=== PATIENT | female | born 1950 | race Caucasian/White ===

== ENCOUNTER 2020-09-04 09:21 | Inpatient (IN) | payer MEDICARE, MEDICAID, SELFPAY ==
[2020-09-04] VITALS (10 sets, daily range): BP systolic 133–151; BP diastolic 48–114; PULSE 50–61; RESP 12–17; O2SAT 95–100
--- NOTE | 2020-09-04 09:28 | ECG_ITS ---
Measurements Intervals Braman Rate: 57 P: 4 MD: 155 QRS: 19 QRSD: 93 T: 80 QT: 396 QTc: 388 Interpretive Statements SINUS BRADYCARDIA VOLTAGE CRITERIA FOR LVH INFERIOR ST ELEVATION MYOCARDIAL INFARCT- ACUTE BASELINE ARTIFACT- I, II, AVR, AVL, AVF, V2, V5-V6 ABNORMAL ECG Electronically Signed On 09-04-2020 12:22:20 CDT by Isaias Mercer D.O.
--- NOTE | 2020-09-04 09:28 | PC.NURSE ---
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
--- NOTE | 2020-09-04 09:32 | ED.CHESTPAIN ---
HPI - Chest Pain General Chief Complaint: Chest Pain Stated Complaint: STEMI Time Seen by Provider: 09/04/20 09:32 History of Present Illness HPI narrative: Stabbing left sided chest pain radiating to the left arm since last night. Much worse this morning. No associated symptoms. Inferior STEMI called in the field. Given 324 mg Aspirin, 4 mg morphine. Pain is now moderate. No h/o CAD. Related Data Home Medications Medication Instructions Recorded Confirmed Myrbetriq 50 mg PO DAILY 03/06/19 03/06/19 esomeprazole magnesium 40 mg PO BID 03/06/19 03/06/19 gabapentin 300 mg PO TID 03/06/19 03/06/19 glimepiride 2 mg PO BID 03/06/19 03/06/19 losartan 25 mg PO DAILY 03/06/19 03/06/19 memantine [Namenda] 10 mg PO BID 03/06/19 03/06/19 venlafaxine 150 mg PO DAILY 03/06/19 03/06/19 Allergies Allergy/AdvReac Type Severity Reaction Status Date / Time Penicillins Allergy Unknown Hives Verified 03/06/19 09:05 Contrast Media Allergy Unknown Dyspnea / Uncoded 03/06/19 09:05 SOB Review of Systems Review of Systems: All systems reviewed & are unremarkable except as noted in HPI and below Constitutional: Constitutional: Reports no additional constitutional complaints Cardiovascular: Cardiovascular: Reports as per HPI Respiratory: Respiratory: Denies dyspnea Gastrointestinal: Gastrointestinal: Denies abdominal pain and Denies nausea Musculoskeletal: Musculoskeletal: Reports no additional musculoskeletal complaints Neurologic: Denies weakness [facility] Past Medical History Medical History Ankle fracture, right 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 of bilateral first ribs Blind left eye Diabetes Glaucoma both eyes HTN (hypertension) Hx of radiation therapy Hx of tongue cancer Hyperlipidemia Type 2 diabetes mellitus with diabetic polyneuropathy, without long-term current use of insulin Surgical History Surgical History History of ankle surgery repair of rt ankle fracture History of orthopedic surgery bilateral removal of 1st rib Hx of oral surgery partial removal of tongue Status post glaucoma surgery both eyes Family History Family History Father , due to [place] at 65 Diabetes mellitus Family history of cardiovascular disease Family history of congestive heart failure Grandparent Diabetes mellitus Family history of glaucoma Sibling Diabetes mellitus Family history of cardiovascular disease Family history of congestive heart failure Daughter Family history of lung disease Daughter , at 46 due to metastatic breast cancer Breast cancer Mother , at 79 due to COPD Family history of chronic obstructive pulmonary disease Other Asthma Depression Family history of mental disorder Hypertension Social History Social History Smoking packs per day: 2 Smoking cigarettes per day: 40.0 Years smoked: 10 Smoking pack-years: 20.00 Smoking status: Former smoker Tobacco type: cigarettes Alcohol intake: never Substance use: never Substance use type: does not use Gender identity (if verbalized by the patient): Female Spiritual care concerns: No Agree to blood products: Yes Exam Const: General: no acute distress, alert and uncomfortable Nutritional Appearance: well nourished Orientation/consciousness: patient oriented x3 HENMT: Head: normal to inspection Neck: Neck: normal visual inspection Chest: Chest palpation & inspection: no tenderness Resp: Effort & Inspection: normal respiratory effort Auscultation: clear to auscultation bilaterally, no rales, no rhonchi and no wheezes Cardio: Jugular venous distension: no JVD Rate: regular rate Rhythm: regular rhythm GI:
[2020-09-04 09:41] LABS: Basophils Percent Auto 0.7 % (0.2-1.2); Eosinophils Absolute Auto 0.2 K/mm3 (0-0.3); Eosinophils Percent Auto 4.2 % (0-4.4); Hemoglobin 14.4 g/dL (12.0-15.0); Immature Granulocyte Absolute 0.02 K/mm3 (0.00-0.031); Immature Granulocyte Percent A 0.4 % (0-0.5); Lymphocytes Absolute Auto 0.77 K/mm3 (0.9-3.2); Lymphocytes Percent Auto 13.5 % (18.3-44.2); Mean Corpuscular HGB Conc 32.7 g/dl (32-36); Mean Corpuscular Hemoglobin 28.9 pg (26-34); Mean Corpuscular Volume 88.4 fl (80-100); Mean Platelet Volume 10.7 fl (7.4-10.4); Monocytes Absolute Auto 0.4 K/mm3 (0.1-0.6); Monocytes Percent Auto 7.6 % (2.6-8.5); Neutrophils Absolute Auto 4.2 K/mm3 (1.3-6.7); Neutrophils Percent Auto 73.6 % (45.5-73.1); Platelet Count Result 162 k/mm3 (150-375); Red Blood Count 4.98 M/mm3 (4.2-5.4); Red Cell Distribution Width 12.5 % (11.5-14.5); White Blood Count 5.7 K/mm3 (4.5-10.0)
[2020-09-04 09:51] LABS: INR 0.9; Prothrombin Time 12.3 Seconds (11.1-14.7)
[2020-09-04 09:52] LABS: Partial Thromboplastin Time 26.3 SECONDS (22.3-36.8)
[2020-09-04 09:53] LABS: Alanine Aminotransferase 15 U/L (4-35); Albumin Level 3.9 g/dL (3.5-5.1); Alkaline Phosphatase 98 U/L (38-126); Anion Gap 8 mmol/L (8-16); Aspartate Amino Transferase 25 U/L (14-36); Bilirubin,Total 0.9 mg/dL (0.2-1.3); Blood Urea Nitrogen 15 mg/dL (7-17); Calcium 9.1 mg/dL (8.4-10.2); Carbon Dioxide 29 mmol/L (22-30); Chloride 102 mmol/L (98-107); Cholesterol 134 mg/dL (0-200); Estimated CRCL calculation 48 ml/min; Estimated Glomerular Filt Rate > 60; Glucose 377 mg/dL (65-110); HDL Direct 36 mg/dL; Potassium 3.8 mmol/L (3.4-5.0); Sodium 139 mmol/L (137-145); Triglycerides 205 mg/dL (<150)
[2020-09-04 10:04] LABS: LDL Cholesterol Direct 66 mg/dL
[2020-09-04 10:16] LABS: Troponin I 0.232 ng/mL (0.000-0.034)
--- NOTE | 2020-09-04 10:26 | WPDCARDPROC ---
Cardiac Cath Procedure Note Date of procedure:: 09/04/20 Performing physician:: Omar Sanchez MD Indication:: emergency coronary angiography left ventriculography placement of intra-aortic balloon pump Brief clinical history:: this 69-year-old woman with diabetes but no previous history of overt heart disease. She started to experience retrosternal chest pain of a burning nature last evening. She resides in an assisted living facility. This morning the pain became more severe and abdomen is was call she was taken to the emergency room. ECG in the field and on route shows evidence of inferior wall myocardial infarction and emergency STEMI protocol / team was activated. The patient was treated with nitrates and aspirin and is currently not having chest pain as she is being prepared for emergency angiography. Procedure Procedure performed:: Coronary angiography left ventriculography placement of intra-aortic balloon pump Sedation/Medication given:: fentanyl 25 mg Versed 2 mg case start time 9:45 a.m. case end time 10:21 a.m. sedation provided by Kiara Lynne RN trained observer Access site:: right femoral artery Estimated blood loss:: 15-20 cc Procedure note:: patient was brought to the cardiac catheterization lab in the emergency setting described above. The right femoral triangle was prepared and draped in the usual fashion. Anesthesia was provided with 1% lidocaine infiltrated locally. Using the modified Seldinger technique the femoral artery was punctured and a 6 Guamanian vascular sheath was placed. Following this I used a 5 Guamanian FL4 catheter to engage and inject the left coronary artery in multiple projections. After this I used a 6 Guamanian JR4 guiding catheter to engage and inject the right coronary artery. Following this the cineangiograms were reviewed. A left ventriculogram was then performed using a 5 Guamanian angled pigtail catheter as well as measuring left-sided hemodynamics. Following this the catheters were removed and over the guidewire the sheath 6 Guamanian sheath was removed and replaced with the intra-aortic balloon pump sheath. Following that the patient received 7000 units of IV heparin bolus. The intra-aortic balloon catheter was then advanced under fluoroscopic visualization into the descending aorta and placed into standard position. The cine angiograms demonstrated excellent counter pulsation and hemodynamic benefit noted on the monitor. Findings:: Hemodynamics: Central aortic pressure is 124 over 56 left ventricle 124/0 end diastolic pressure 16. There is no systolic gradient on pullback across the aortic valve. Left ventricle: The LV is normal in size the posterior basal segment appears to be akinetic the remainder of the LV contracts very well the global ejection fraction I would visually estimated to be 65%. The left main coronary artery is medium in caliber and free of significant disease. The left anterior descending is a medium caliber artery extending down to and around the apex supplying a significant portion of the inferior wall as well. The LAD has diffuse disease in the proximal 1/2 with proximal 60-70% stenosis and in the midportion at the end of this area of disease there is a discrete 90% stenosis. Distal to this the LAD is free of significant lesions. The circumflex is a moderate caliber artery giving rise to 1 very large marginal branch. The circumflex in this marginal branch have mild diffuse luminal irregularities but no flow-limiting disease appears to be seen. The right coronary artery is small in caliber but is dominant to the posterior. It is diffusely diseased in its entirety. In the midportion of the right coronary there is diffuse 70% stenosis and 80-90% stenosis in the 3rd portion and then 99% stenosis distally at the bifurcation of the RPDA and RPL. There is angiographically good flow in the vessel however. Conclusion:: 1. Coronary artery d
--- NOTE | 2020-09-04 10:38 | PM.IMHP ---
H&P: HPI History of Present Illness Date/Time: 09/04/20 10:38 Chief Complaint: chest pain Narrative: this is a 69-year-old woman known to me prior to this encounter who comes to the emergency room with chest pain from the assisted living facility where she resides. Apparently she has a history of diabetes but no prior history of overt cardiac disease. She started to have symptoms of retrosternal burning like chest pain yesterday evening while she was visiting with other residents at the facility but this was apparently mild and did not obviously result in any significant concern. This morning the pain became significantly worse so she came to the emergency room by ambulance. In the field ECG is diagnostic of acute inferior wall infarction and is setting STEMI protocol /team has been activated. She is being seen in the emergency room and at the moment appears to be relatively comfortable she is reporting mild residual discomfort. Laboratory data has been drawn but has of course not yet available at the time of this dictation. Preparations are now being made for emergency angiography in the setting. 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 s/p 1971 removal of bilateral first ribs Blind left eye Diabetes Glaucoma both eyes HTN (hypertension) Hx of radiation therapy Hx of tongue cancer Hyperlipidemia Type 2 diabetes mellitus with diabetic polyneuropathy, without long-term current use of insulin Surgical History Surgical History History of ankle surgery repair of rt ankle fracture History of orthopedic surgery bilateral removal of 1st rib Hx of oral surgery partial removal of tongue Status post glaucoma surgery both eyes Family History Family History Father , due to [place] at 65 Diabetes mellitus Family history of cardiovascular disease Family history of congestive heart failure Grandparent Diabetes mellitus Family history of glaucoma Sibling Diabetes mellitus Family history of cardiovascular disease Family history of congestive heart failure Daughter Family history of lung disease Daughter , at 46 due to metastatic breast cancer Breast cancer Mother , at 79 due to COPD Family history of chronic obstructive pulmonary disease Other Asthma Depression Family history of mental disorder Hypertension Social History Social History Smoking packs per day: 2 Smoking cigarettes per day: 40.0 Years smoked: 10 Smoking pack-years: 20.00 Smoking status: Former smoker Tobacco type: cigarettes Alcohol intake: never Substance use: never Substance use type: does not use Gender identity (if verbalized by the patient): Female Spiritual care concerns: No Agree to blood products: Yes Meds Home Medications and Allergies Home Medications Medication Instructions Recorded Confirmed Type Myrbetriq 50 mg PO DAILY 03/06/19 03/06/19 History esomeprazole magnesium 40 mg PO BID 03/06/19 03/06/19 History gabapentin 300 mg PO TID 03/06/19 03/06/19 History glimepiride 2 mg PO BID 03/06/19 03/06/19 History losartan 25 mg PO DAILY 03/06/19 03/06/19 History memantine [Namenda] 10 mg PO BID 03/06/19 03/06/19 History venlafaxine 150 mg PO DAILY 03/06/19 03/06/19 History acetaminophen [Mapap 650 mg PO Q4H PRN #60 tablet 03/07/19 Rx (acetaminophen)] aspirin 81 mg PO DAILY #30 tablet 03/07/19 Rx atorvastatin 40 mg PO DAILY #30 tablet 03/07/19 Rx levothyroxine 75 mcg capsule 75 mcg PO DAILY #30 cap 04/30/19 Rx Allergies Allergy/AdvReac Type Sever
--- NOTE | 2020-09-04 11:10 | SUR.PHASEI ---
patient into the [facility] room 3 post left jeart cath with balloon pump intact. Currently the IABP is in a 1:1 with ECG trigger Unassisted pressure is 157/69, assisted 125/57. Patient is resing comfortably with no complaints of pain. Right groin sheath intact without swelling or signs of bleeding.
[2020-09-04 11:26] LABS: Glucose Point of Care 267 mg/dl (65-105)
[2020-09-04] MEDS: SODIUM CHLORIDE 0.9% IV 1,000 ML 125 ML IV CONT (11:35)
[2020-09-04] MEDS: HEPARIN SOD/D5W 100 UNITS/ML 25,000 UNITS/250 ML BAG 9 UNITS (11:36)
[2020-09-04 12:56] LABS: Troponin I 0.788 ng/mL (0.000-0.034)
[2020-09-04] MEDS: INSULIN ASPART (*BKC) 100 UNITS/ML SUB-Q (13:00)
--- NOTE | 2020-09-04 13:42 | SUR.PHASEI ---
1145 [facility] called with bed assignment, pt to be transfered to ICU 25 Second floor at [facility]. Talked with daughter about mothers condition and the pending transfer. Patient resting comfortably in bed, offers no complaints at this time. Right groin site intact, no signs of bleeding. IV fluids of NS infusing without difficulty at 125ml/hr and Heparin gtt infusing at 9ml/hr or 900 units. Peripheral pulses are 1+ to the right dorsal pedal, right foot appears warm and dry, pink in color. Monitor Sinus Tomás, no ectopics. bilateral IV sites to the right and left AC without redness or swelling. IABP continues to operate without difficulty at 1:1, augmentation is 163. 1205 Report called to Coreen at [facility] 2nd floor ICU, verified that patient will be going to [facility]. 1210 [facility] called and informed of transfer need. They state that an ambulance should be here in 25 min. 1300 [facility] here to transfer patient. Patient loaded onto stretcher without difficult. Subq 5 units regular insulin given as ordered for elevated glucose level. Balloon pump intact, IV pumps infusing without difficulty. 1305 Sarah, daughter of the patient, informed of transfer to [facility].
--- NOTE | 2020-10-13 17:41 | P.TS_ITS ---
Transfer Discharge Sum: Prov Provider Date of admission: 09/04/20 09:32 Primary care physician: Iqra Irizarry, Admitting clinician: Omar Sanchez MD DS: Admitting Diagnosis Admitting Diagnosis ST-elevation MN DS: Discharge Diagnosis Discharge Diagnosis (1) Acute ST elevation myocardial infarction (STEMI) of inferior wall: Code(s): I21.19 - ST elevation (STEMI) myocardial infarction involving other coronary artery of inferior wall Status: Acute Transfer Discharge Sum: Med Medications Active and Home Medications: Home Medications Myrbetriq 50 mg PO DAILY 03/06/19 [History Confirmed 03/06/19] esomeprazole magnesium 40 mg PO BID 03/06/19 [History Confirmed 03/06/19] gabapentin 300 mg PO TID 03/06/19 [History Confirmed 03/06/19] glimepiride 2 mg PO BID 03/06/19 [History Confirmed 03/06/19] losartan 25 mg PO DAILY 03/06/19 [History Confirmed 03/06/19] memantine [Namenda] 10 mg PO BID 03/06/19 [History Confirmed 03/06/19] venlafaxine 150 mg PO DAILY 03/06/19 [History Confirmed 03/06/19] acetaminophen [Mapap (acetaminophen)] 650 mg PO Q4H PRN #60 tablet 03/07/19 [Rx] aspirin 81 mg PO DAILY #30 tablet 03/07/19 [Rx] atorvastatin 40 mg PO DAILY #30 tablet 03/07/19 [Rx] levothyroxine 75 mcg capsule 75 mcg PO DAILY #30 cap 04/30/19 [Rx] Transfer Discharge Sum: Hosp Hospital Course Hospital course: Shoshana Mon is a 69 year old female without previous history of heart disease who was admitted to the hospital emergency room with intermittent chest pain that had been going on for a couple of days. Upon arrival she had inferior ST elevation STEMI protocol was activated. Upon arrival in the cardiac catheterization lab she was no longer having any chest pain. Angiographically she was found to have severe diffuse disease in both the right coronary artery as well as the proximal half of the LAD. She had high- grade lesions in the proximal right coronary, midportion as well as in the distal involving the RPDA RPL bifurcation. Since she had patent, AD 3 flow in these vessels emergency PCI was not performed I thought she was a better candidate for surgical revascularization. For that reason intra-aortic balloon pump was placed and she was transferred for surgical revascularization to [facility]. Time Spent with Patient Time attestation: Total time spent providing and/or coordinating transfer services: Exam Const: General: comfortable and no acute distress HENMT: Mouth: Yes moist mucous membranes Eyes: Sclera: sclerae normal Pupils: Equal, round and reactive pupils present Neck: Neck: supple Other: No carotid bruits normal carotid upstrokes Resp: Effort & Inspection: normal respiratory effort Auscultation: clear to auscultation bilaterally Cardio: Rate: regular rate Rhythm: regular rhythm Other: S4 is noted no murmur GI: GI Palp: Yes Soft to palpation Auscultation: normal bowel sounds Skin: General skin exam: normal color Neuro: Cognition (Neuro): normal cognition Extrem: General: normal to inspection
== END 2020-09-04 13:00 | disposition short-term general hospital (02) | DRG 272 ==
LOC: ANHED 09:34 → ANHICU 09:36
PROVIDERS: Admitting Provider Specialist; Emergency Provider Emergency Medicine; PCP Family Medicine; Visit Provider Specialist
PROC: 4A023N7 Measurement of Cardiac Sampling and Pressure, Left Heart, Percutaneous Approach (ICD-10-PCS; CPT 93452; principal; 2020-09-04 09:40)
PROC: 5A02210 Assistance with Cardiac Output using Balloon Pump, Continuous (ICD-10-PCS; 2020-09-04 09:40)
DX: I21.19 ST elevation (STEMI) myocardial infarction involving other coronary artery of inferior wall (principal); E11.42 Type 2 diabetes mellitus with diabetic polyneuropathy; I25.10 Atherosclerotic heart disease of native coronary artery without angina pectoris; I10 Essential (primary) hypertension; E78.5 Hyperlipidemia, unspecified; H40.9 Unspecified glaucoma; Z87.891 Personal history of nicotine dependence; Z79.899 Other long term (current) drug therapy; Z88.0 Allergy status to penicillin; Z91.041 Radiographic dye allergy status; Z85.810 Personal history of malignant neoplasm of tongue; Z92.3 Personal history of irradiation
CPT/HCPCS: 33967; 36415; 80053; 80061; 82948; 84484; 85025; 85610; 85730; 86850; 86900; 86901; 93005; 93458; 99285; C1887; C1894; J1644; J1815; J2250; J3010; J7030; J7040

== ENCOUNTER 2021-01-14 11:13 | Outpatient (CLI) | payer BC, SELFPAY ==
--- NOTE | ~2021-01-14 | XR_ITS ---
EXAMINATION: XR ankle LT min 3V, XR foot LT min 3V DATE: 01/14/2021 11:47 INDICATION: Lateral left foot and ankle pain post fall TECHNIQUE: 1. Anteroposterior, mortise, additional oblique and lateral view of the left ankle were obtained. 2. Dorsoplantar, two oblique and lateral views of the left foot were obtained. COMPARISON: None. FINDINGS: Hallux valgus with bunion with mild hypertrophic change at the medial head of the first metatarsal. A lignment of the left foot and ankle is otherwise normal. Lateral plate and screw fixation along the d istal left fibula presumably an old healed fracture with no residual deformity. No instrumentation fa ilure or surrounding lucency to suggest loosening or infection. No acute fractures identified. No fra cture or osteochondral lesion. Mild osteoarthritis of the first metatarsophalangeal and a few tarsome tatarsal and interphalangeal joints. No ankle joint effusion. The soft tissues are unremarkable. IMPRESSION: 1. No acute osseous abnormality. The left foot or ankle. 2. Hallux valgus with bunion. 3. Mild polyarticular osteoarthritis in the left mid and forefoot. Reviewed, dictated and finalized at location A. ICATION SUPPORT ANALYST IMPRESSION: 1. No acute osseous abnormality. The left foot or ankle. 2. Hallux valgus with bunion. 3. Mild polyarticular osteoarthritis in the left mid and forefoot.
== END 2021-01-14 11:14 | disposition home or self-care (01) ==
LOC: ANHIMG 11:25
PROVIDERS: PCP Family Medicine; Visit Provider Nurse Practitioner Family
DX: M19.072 Primary osteoarthritis, left ankle and foot (principal); M20.12 Hallux valgus (acquired), left foot
CPT/HCPCS: 73610; 73630

== ENCOUNTER 2021-02-09 13:05 | Outpatient (CLI) | payer BC, SELFPAY ==
--- NOTE | ~2021-02-09 | US_ITS ---
EXAMINATION: US venous doppler [facility] EXAM DATE: 02/09/2021 14:04 INDICATION: Left foot edema. TECHNIQUE: Multiple grayscale, color flow and Doppler images of the left lower extremity deep venous system were obtained and reviewed. There is no prior study for comparison. FINDINGS: The left common femoral, femoral and profunda veins demonstrate normal color flow, respirat ory variation, augmentation and compressibility. Compressibility, color flow confirmed within the le ft popliteal, posterior tibial, peroneal, and greater saphenous veins. IMPRESSION: 1. No left lower extremity deep venous thrombosis. Reviewed, dictated and finalized at location A. TRIMMER
--- NOTE | ~2021-02-09 | US_ITS ---
EXAMINATION: US art doppler w missy [facility] EXAM DATE: 02/09/2021 14:04 INDICATION: Left foot edema. TECHNIQUE: Segmental pressures and plethysmographic and Doppler waveforms of the brachial and lower e xtremity arteries were obtained. There is no prior study for comparison. FINDINGS: Right and left brachial artery pressures of 100 mm Hg and 118 mm Hg, respectively, are concordant (no rmal difference <= 30 mmHg). The right and left thigh-brachial pressure indices are 1.08, 1.02, resp ectively (normal > 1.2). RIGHT LEG: The ankle-brachial index (ISAIAH) is 0.57 (normal >= 0.9-1). The great toe-brachial index (TBI) is 0.15 (normal >= 0.65). The lower extremity ratios, segmental pressure gradients as follows; Proximal superficial femoral artery:- 1.08 (127 mmHg). Distal superficial femoral artery: ----- 0.87 (103 mmHg). Popliteal: 0.63 (74 mmHg). Dorsalis pedis: 0.57 (67 mmHg). Posterior tibial: 0.50 (59 mmHg). (Normal gradients <= 20-30 mmHg between adjacent levels on the same leg or the same levels on the two legs). Arterial waveforms are monophasic. LEFT LEG: The ankle-brachial index (ISAIAH) is 0.53 (normal >= 0.9-1). The great toe-brachial index (TBI) is 0.25 (normal >= 0.65). The lower extremity ratios, segmental pressure gradients as follows; Proximal superficial femoral artery:- 1.02 (120 mmHg). Distal superficial femoral artery: ----- 1.08 (127 mmHg). Popliteal: 0.60 (71 mmHg). Dorsalis pedis: 0.53 (63 mmHg). Posterior tibial: 0.52 (61 mmHg). (Normal gradients <= 20-30 mmHg between adjacent levels on the same leg or the same levels on the two legs). Arterial waveforms are monophasic. IMPRESSION: 1. Right ankle-brachial index 0.57, moderately decreased. 2. Left ankle-brachial index 0.53, moderately decreased. 3. Monophasic waveforms. Segmental pressures as above. Reviewed, dictated and finalized at location A. CTOR OF STRATEGIC SOURCING
== END 2021-02-09 13:06 | disposition home or self-care (01) ==
LOC: ANHIMG 13:09
PROVIDERS: PCP Family Medicine; Visit Provider Nurse Practitioner Adult Health
DX: R60.0 Localized edema (principal); I73.9 Peripheral vascular disease, unspecified
CPT/HCPCS: 93923; 93971

== ENCOUNTER 2021-08-24 10:12 | Outpatient (CLI) | payer MEDICARE, MEDICAID, SELFPAY ==
--- NOTE | ~2021-08-24 | US_ITS ---
EXAMINATION: US carotid duplex BI DATE: 08/24/2021 11:21 INDICATION: Facial weakness. Vertigo. Atherosclerosis. TECHNIQUE: Grayscale, color Doppler, and pulsed Doppler images of the cervical carotid arteries were obtained. The degree of vessel stenosis is placed in one of the following categories: normal, <50%, 5 0-69%, >=70% but less than near-occlusion, near-occlusion, or total occlusion. Note that percent sten osis relative to normal distal artery lumen diameter is indirectly measured from velocity measurement s as described by Juanito, et al. Radiology 2003; [id number]. Notes: Normal: Peak systolic velocity <125 centimeters/sec and no plaque <50%. Peak systolic velocity <125 ( EDV <40; ICA/CCA PSV ratio <2.0; used these factors only a tandem lesions or low cardiac output or co ntralateral disease) 50-69 %: PSV 125-230 (EDV 40-100; ratio 2-4) >= 70% but less than near occlusion: PSV greater than 230 (EDV > 100; ratio> 4.0) Near Occlusion: PSV that is variable; markedly narrowed lumen Occlusion: Absent flow on color/spectral Doppler and no lumen on key scale. COMPARISON: Ultrasound dated 03/06/2019. FINDINGS: RIGHT: The right common carotid artery (CCA) peak systolic velocity (PSV) is 121 cm/s. The right internal ca rotid artery (ICA) PSV is 357 cm/s. The right ICA end-diastolic velocity (EDV) is 120 cm/s. The right ICA/CCA PSV ratio is 3.0. The external carotid artery (ECA) PSV is 192 cm/s. There is antegrade flow in the right vertebral artery. LEFT: The left CCA PSV is 124 cm/s. The left ICA PSV is 265 cm/s. The left ICA EDV is 58 cm/s. The left ICA /CCA PSV ratio is 2.1. The ECA PSV is 190 cm/s. There is antegrade flow in the left vertebral artery . IMPRESSION: 1. Greater than 70% stenosis in the right internal carotid artery by sonographic criteria. 2. Greater than 70% stenosis in the left internal carotid artery by sonographic criteria. Reviewed, dictated and finalized at location A. IMPRESSION: 1. Greater than 70% stenosis in the right internal carotid artery by sonographi c criteria. 2. Greater than 70% stenosis in the left internal carotid artery by sonographic criteria.
== END 2021-08-24 10:13 | disposition home or self-care (01) ==
PROVIDERS: PCP Family Medicine; Visit Provider Internal Medicine Cardiovascular Disease
DX: I65.23 Occlusion and stenosis of bilateral carotid arteries (principal)
CPT/HCPCS: 93880

== ENCOUNTER 2021-09-07 00:39 | Inpatient (IN) | payer MEDICARE, MEDICAID, SELFPAY ==
[2021-09-07] VITALS (10 sets, daily range): BP systolic 91–165; BP diastolic 45–98; PULSE 65–83; RESP 15–24; TEMP 36.4–36.9; O2SAT 88–100; BMI 26.3
--- NOTE | ~2021-09-07 | XR_ITS ---
EXAMINATION: XR lumbar spine 2-3V DATE: 09/07/2021 01:24 INDICATION: Low back pain post fall TECHNIQUE: Anteroposterior and lateral views of the lumbar spine, and cone-down lateral view of the l umbosacral junction were obtained. COMPARISON: None. FINDINGS: 1.5 cm anterolisthesis L5 on S1. 3 mm anterolisthesis L4 on L5. 3 mm retrolisthesis L1 on L2 and 5 mm retrolisthesis L2 on L3. Vertebral body heights are normal. Severe disc height loss at T12-L1 and L1 -L2. Mild disc height loss at L2-L3 and L5-S1. Multilevel severe mid to lower lumbar facet osteoarthr itis. Transcervical fracture of the proximal femur with significant proximal migration. Mild right an d mild to moderate left hip osteoarthritis. Mild bilateral sacroiliac osteoarthritis. Atherosclerotic calcific a abdominal aorta. IMPRESSION: 1. Severe thoracolumbar spondylosis with severe facet osteoarthritis in the mid to lower lumbar spine . 2. Mild spondylolisthesis at a few levels with more severe 1.5 cm anterolisthesis L5 on S1. 3. Displaced transcervical fracture of the proximal left femur. Reviewed, dictated and finalized at location A. IMPRESSION: 1. Severe thoracolumbar spondylosis with severe facet osteoarthritis in the mid to lower lumbar spine. 2. Mild spondylolisthesis at a few levels with more severe 1.5 cm anterolisthes is L5 on S1. 3. Displaced transcervical fracture of the proximal left femur.
--- NOTE | ~2021-09-07 | CT_ITS ---
EXAMINATION: CT LE LT wo con DATE: 09/10/2021 20:48 INDICATION: Recent hip arthroplasty. Low hemoglobin. Evaluate for hemorrhage. TECHNIQUE: Computed tomography (CT) of the left femur was performed without intravenous contrast. The dose-length product was 1051.79 mGy-cm. COMPARISON: CT dated 09/10/2021 FINDINGS: There is a left femoral bipolar hemiarthroplasty which appears to be well seated. There is mild subcutaneous edema as well as soft tissue gas and fluid adjacent to the hip arthroplasty, consis tent with recent surgery. No significant abnormal fluid collections are identified to suggest large h emorrhage. The prosthesis appears to be well seated. There is a healed left inferior pubic ramus frac ture. IMPRESSION: 1. Status post recent left femoral bipolar hemiarthroplasty with expected changes in the overlying so ft tissues. Reviewed, dictated and finalized at location A. IMPRESSION: 1. Status post recent left femoral bipolar hemiarthroplasty with expected rubio es in the overlying soft tissues.
--- NOTE | ~2021-09-07 | CT_ITS ---
EXAMINATION: CT brain wo con INDICATION: Left-sided weakness COMPARISON: 09/07/2021 TECHNIQUE: Standard unenhanced head CT. The dose-length product (DLP) was 681.00 mGy-cm. The mA was a djusted according to patient size. Iterative reconstruction technique was employed. FINDINGS: There is no acute intraparenchymal hemorrhage. No evidence of mass lesion. No evidence of a cute infarction. There is mild periventricular and subcortical hypodensity probably related to small vessel ischemic disease. There is mild prominence of the sulci and ventricles related to cerebral atr ophy. Intracranial calcified cerebral atherosclerosis is noted. There are no extra-axial collections. An evolving right parietal scalp hematoma is noted. There is no mass effect or midline shift. Change s in the globes are likely from ocular lens surgery. The visualized sinuses and mastoid air cells are well aerated. IMPRESSION: 1. No acute intracranial abnormality. 2. Age related findings. Reviewed, dictated and finalized at location B.
--- NOTE | ~2021-09-07 | CT_ITS ---
EXAMINATION: CT abdomen pelvis wo con DATE: 09/10/2021 20:48 INDICATION: Left hip repair. Low hemoglobin. TECHNIQUE: Computed tomography (CT) of the abdomen and pelvis was performed without intravenous contr ast. The dose-length product was 865.80 mGy-cm. Automated exposure control and iterative reconstructi on technique were employed. COMPARISON: None. FINDINGS: Small right pleural effusion. Bibasilar atelectasis. There is atherosclerosis of the mishra ry arteries. Small hiatal hernia. There is dependent high density material in the gallbladder, possib ly sludge. There are calcified granulomas of the spleen. The pancreas, adrenal glands and kidneys are unremarkable. Nonobstructive bowel gas pattern. There are expected postoperative changes in the left hip status post hip arthroplasty. No free intraperitoneal air. There is grade 2 spondylolisthesis at L5-S1. There are severe lumbar spondylosis. IMPRESSION: 1. Bibasilar atelectasis with small right pleural effusion. 2: Status post recent left hip arthroplasty with expected changes in the overlying soft tissues. Reviewed, dictated and finalized at location A. IMPRESSION: 1. Bibasilar atelectasis with small right pleural effusion. 2: Status post recent left hip arthroplasty with expected changes in the overl nafisa soft tissues.
--- NOTE | ~2021-09-07 | XR_ITS ---
EXAMINATION: XR hip LT 2V w AP pelvis DATE: 09/07/2021 01:24 INDICATION: Left hip pain post fall TECHNIQUE: Anteroposterior view of the pelvis and anteroposterior and cross-table lateral views of th e left hip were obtained. COMPARISON: None. FINDINGS: Transcervical fracture of the proximal left femur with 2 cm proximal migration and varus angulation. The left femoral head remains normally centered in the left acetabulum. No other fractures identified . Mild bilateral hip osteoarthritis. Severe lower lumbar facet osteoarthritis. IMPRESSION: 1. Displaced transcervical fracture of the proximal left femur. Reviewed, dictated and finalized at location A.
--- NOTE | ~2021-09-07 | XR_ITS ---
EXAMINATION: XR chest 1V DATE: 09/07/2021 01:24 INDICATION: Fall with head injury and back pain TECHNIQUE: frontal view of the chest was obtained. COMPARISON: Chest radiograph dated 03/06/19 FINDINGS: Mild biapical pleural-parenchymal scarring. No other airspace opacities, pulmonary edema, pleural eff usion or pneumothorax. The cardiomediastinal silhouette is normal. Median sternotomy wires, ostial ma rkers and mediastinal surgical clips consistent with prior coronary artery bypass grafting. Additiona l surgical clips over the left upper chest and abdominal pain remain in the upper left lateral chest. IMPRESSION: 1. No acute cardiopulmonary disease. Reviewed, dictated and finalized at location A.
--- NOTE | ~2021-09-07 | XR_ITS ---
EXAM: XR shoulder LT min 2V DATE: 09/11/2021 14:33 HISTORY: left arm pain . COMPARISON: None available. FINDINGS: Multiple surgical clips over the lower neck, mediastinum, upper chest and left jugular. Int act sternotomy wires and fixation plates Normal mineralization. No fracture or dislocation. No lytic or blastic lesion. Mild AC joint hypertrophy. Mild-moderate glenohumeral osteoarthritis. No erosion o r periosteal change. Soft tissues within normal limits. IMPRESSION: No acute osseous finding the left shoulder. Reviewed, dictated and finalized at location K.
--- NOTE | ~2021-09-07 | XR_ITS ---
EXAMINATION: XR hip LT min 2V DATE: 09/08/2021 14:56 INDICATION: Left hip arthroplasty TECHNIQUE: 2 views left hip FINDINGS: There is a left bipolar hip arthroplasty in expected position. Subcutaneous gas with soft tissue swelling are consistent with recent surgery. IMPRESSION: 1. Recent left bipolar hip arthroplasty. Reviewed, dictated and finalized at location A.
--- NOTE | ~2021-09-07 | XR_ITS ---
EXAM: [id number] DATE: 09/11/2021 14:33 HISTORY: neck weakness . COMPARISON: None available. FINDINGS: Multiple surgical clips over the right and lower neck and mediastinum. Intact sternotomy w ires and sternal fixation plates. Craniocervical association and atlantoaxial joint are aligned. No p revertebral soft tissue swelling. 3 mm anterolisthesis of C2 on C3. 5 mm anterolisthesis of C3 on C4. 4 mm retrolisthesis of C4 on C5. Minimal 1 to 2 mm listheses are also likely present in the lower ce rvical levels. Reversed lordosis. Multilevel vertebral body height loss, worst at C4 and C5. Multilev el severe degenerative disc disease. Multilevel severe arthropathy. IMPRESSION: Grade 2 anterolisthesis of C3 on C4. Multilevel grade 1 listheses, described above. Multi level severe degenerative disc disease and facet arthropathy. Reviewed, dictated and finalized at location K. IMPRESSION: Grade 2 anterolisthesis of C3 on C4. Multilevel grade 1 listheses, described above. Multilevel severe degenerative disc disease and facet arthropa thy.
--- NOTE | ~2021-09-07 | CT_ITS ---
EXAMINATION: CT brain wo con INDICATION: Head injury COMPARISON: 03/06/2019 TECHNIQUE: Standard unenhanced head CT. The dose-length product (DLP) was 605.33 mGy-cm. The mA was a djusted according to patient size. Iterative reconstruction technique was employed. FINDINGS: There is no acute intraparenchymal hemorrhage. No evidence of mass lesion. No evidence of a cute infarction. There has been interval lacunar infarction in the left thalamus. A left parietal sca lp hematoma is noted. There is mild periventricular and subcortical hypodensity probably related to s mall vessel ischemic disease. There is mild prominence of the sulci and ventricles related to cerebra l atrophy. Intracranial calcified cerebral atherosclerosis is noted. There are no extra-axial collect ions. There is no mass effect or midline shift. Changes in the globes are likely from ocular lens vern trudy. The visualized sinuses and mastoid air cells are well aerated. IMPRESSION: 1. No acute intracranial abnormality. 2. Age related findings. Reviewed, dictated and finalized at location B.
--- NOTE | 2021-09-07 01:00 | ED.FALL ---
HPI - Fall General Chief Complaint: Fall <Christal Mcginnis PA-C - Last Filed: 09/07/21 03:14> Stated Complaint: LEFT HIP AND BACK PAIN/INJURY <Christal Mcginnis PA-C - Last Filed: 09/07/21 03:14> Time Seen by Provider: 09/07/21 00:48 <Christal Mcginnis PA-C - Last Filed: 09/07/21 03:14> Source: patient and EMS <ROSANNA Benjamin Last Filed: 09/07/21 03:14> Mode of arrival: EMS <ROSANNA Benjamin Last Filed: 09/07/21 03:14> Limitations: dementia <ROSANNA Benjamin Last Filed: 09/07/21 03:14> History of Present Illness HPI Narrative: This is a 70 year old female that presents to the ER after a ground level fall today with left hip pain. Reports she was going to the restroom and fell. She is unsure what made her fall. Reports since she has had left hip pain and low back pain. She does report hitting her head. Denies loss of consciousness. Denies focal numbness or weakness. <Christal Mcginnis PA-C - Last Filed: 09/07/21 03:14> Related Data Home Medications: Home Medications Medication Instructions Recorded Confirmed gabapentin 100 mg capsule 300 mg PO TID 03/06/19 08/11/21 memantine 10 mg tablet (Namenda) 10 mg PO BID 03/06/19 08/11/21 mirabegron 50 mg tablet,extended 50 mg PO DAILY 03/06/19 08/11/21 release 24 hr (Myrbetriq) venlafaxine 150 mg 150 mg PO DAILY 03/06/19 08/11/21 capsule,extended release 24 hr clopidogrel 75 mg tablet 75 mg PO DAILY 05/12/21 08/11/21 donepezil 10 mg tablet 10 mg PO QHS 05/12/21 08/11/21 doxycycline hyclate 100 mg tablet 100 mg PO BID 05/12/21 08/11/21 duloxetine 40 mg capsule,delayed 40 mg PO BID 05/12/21 08/11/21 release esomeprazole magnesium 40 mg 40 mg PO DAILY 05/12/21 08/11/21 capsule,delayed release fluticasone propionate 50 1 spray intranasal DAILY 05/12/21 08/11/21 mcg/actuation nasal spray,suspension (Flonase Allergy Relief) liraglutide 0.6 mg/0.1 mL (18 mg/3 0.6 mg subcut DAILY 05/12/21 08/11/21 mL) subcutaneous pen injector ([employer] 2-Yann) naproxen 250 mg tablet 250 mg PO BID PRN 05/12/21 08/11/21 nitroglycerin 0.4 mg sublingual 0.4 mg sublingual Q5M PRN 05/12/21 08/11/21 tablet polyethylene glycol 3350 17 17 g PO DAILY 05/12/21 08/11/21 gram/dose oral powder sitagliptin 100 mg tablet (Januvia) 100 mg PO DAILY 05/12/21 08/11/21 zonisamide 100 mg capsule 100 mg PO DAILY 05/12/21 08/11/21 escitalopram oxalate 20 mg tablet 20 mg PO DAILY 06/16/21 08/11/21 famotidine 20 mg tablet 20 mg PO BID 06/16/21 08/11/21 fexofenadine 180 mg tablet 180 mg PO DAILY 06/16/21 08/11/21 glimepiride 2 mg tablet 2 mg PO DAILY 06/16/21 08/11/21 levothyroxine 150 mcg tablet 150 mcg PO DAILY 06/16/21 08/11/21 <Christal Mcginnis PA-C - Last Filed: 09/07/21 03:14> Allergies/Adverse Reactions: Allergies Allergy/AdvReac Type Severity Reaction Status Date / Time codeine Allergy Intermediate Unknown Verified 09/07/21 00:51 Sulfa (Sulfonamide Allergy Intermediate unknown Verified 09/07/21 00:51 Antibiotics) Penicillins Allergy Unknown Hives Verified 09/07/21 00:51 Contrast Media Allergy Unknown Dyspnea / Uncoded 09/07/21 00:51 SOB <Christal Mcginnis PA-C - Last Filed: 09/07/21 03:14> Review of Systems Review of Systems: CONSTITUTIONAL: Denies fever GASTROINTESTINAL: Denies vomiting MUSCULOSKELETAL: Reports back pain, joint pain, and myalgia. NEUROLOGIC: Denies numbness, or weakness. 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
--- NOTE | 2021-09-07 01:18 | ECG_ITS ---
Measurements Intervals [place] Rate: 72 P: 3 KS: 158 QRS: 26 QRSD: 88 T: 34 QT: 328 QTc: 360 Interpretive Statements SINUS RHYTHM NONSPECIFIC T-WAVE ABNORMALITY- HIGH LATERAL LEADS BASELINE ARTIFACT- I, II, III, AVR, AVL, AVF, V1-V5 BORDERLINE ECG Electronically Signed On 09-07-2021 7:19:54 CDT by Isaias Mercer D.O.
[2021-09-07] MEDS: ONDANSETRON INJ 4 MG/2 ML VIAL IV PUSH (01:46)
[2021-09-07] MEDS: MORPHINE SULFATE (*CRX) 2 MG/ML INJ IV PUSH (01:46)
[2021-09-07 02:13] LABS: Basophils Absolute Auto 0.1 K/mm3 (0.0-0.1); Basophils Percent Auto 0.7 % (0.2-1.2); Eosinophils Absolute Auto 0.2 K/mm3 (0-0.3); Eosinophils Percent Auto 3.2 % (0-4.4); Hematocrit 34.5 % (37.0-47.0); Hemoglobin 10.6 g/dL (12.0-15.0); Immature Granulocyte Absolute 0.04 K/mm3 (0.00-0.031); Immature Granulocyte Percent A 0.6 % (0-0.5); Lymphocytes Absolute Auto 0.77 K/mm3 (0.9-3.2); Lymphocytes Percent Auto 10.7 % (18.3-44.2); Mean Corpuscular HGB Conc 30.7 g/dl (32-36); Mean Corpuscular Hemoglobin 26.7 pg (26-34); Mean Corpuscular Volume 86.9 fl (80-100); Mean Platelet Volume 10.5 fl (7.4-10.4); Monocytes Absolute Auto 0.6 K/mm3 (0.1-0.6); Monocytes Percent Auto 8.3 % (2.6-8.5); Neutrophils Absolute Auto 5.5 K/mm3 (1.3-6.7); Neutrophils Percent Auto 76.5 % (45.5-73.1); Platelet Count Result 176 k/mm3 (150-375); Red Blood Count 3.97 M/mm3 (4.2-5.4); Red Cell Distribution Width 13.7 % (11.5-14.5); White Blood Count 7.2 K/mm3 (4.5-10.0)
[2021-09-07 02:23] LABS: Anion Gap 8 mmol/L (8-16); Blood Urea Nitrogen 25 mg/dL (7-17); Calcium 9.3 mg/dL (8.4-10.2); Carbon Dioxide 30 mmol/L (22-30); Chloride 105 mmol/L (98-107); Estimated Glomerular Filt Rate > 60; Glucose 198 mg/dL (65-110); Potassium 4.3 mmol/L (3.4-5.0); Sodium 143 mmol/L (137-145)
[2021-09-07 02:34] LABS: INR 1.2; Prothrombin Time 14.4 Seconds (11.1-14.7)
[2021-09-07 02:35] LABS: Partial Thromboplastin Time 30.5 SECONDS (22.3-36.8)
[2021-09-07 02:41] LABS: SARS-CoV-2 RNA PCR Negative
[2021-09-07] MEDS: MORPHINE SULFATE (*CRX) 4 MG/ML INJ IV PUSH ×5 (03:29→20:50)
--- NOTE | 2021-09-07 03:56 | PM.IMHP ---
H&P: HPI History of Present Illness Date/Time: 09/07/21 03:56 Chief Complaint: Fall with hip pain Narrative: 70-year-old female with a past medical history of coronary artery disease, CVA, essential hypertension, hyperlipidemia, dementia, depression, hypothyroidism, GERD and urge urinary incontinence who presented to the ER from assisted living after having fallen in developing severe left hip pain. Source of information is EMS records, ER records past medical records and patient report. The patient is a fair. The patient reports that she got up to go to the bathroom with her Rollator. When she got back to bed she put her walker against the wall in turned around to take a few steps to the bed when she lost her balance and fell. She struck her right occiput put as she fell. She denies any loss of consciousness. Patient had immediate severe left hip pain. When I arrived to the patient's room in the ER she was crying out in pain and reports that her pain was a 9/10 in intensity. Her leg was flexed at the knee and she refuses straight the leg out. Nursing staff tells me that they had to Doppler her pedal pulse. At the time of my evaluation the patient had a weakly palpable left pedal pulse and a 1+ left posterior tibial pulse. She has intact sensation to the left leg. X-ray did demonstrate a displaced femoral neck fracture. The patient does not think that she hit her head very hard but blood was noted on her pillow case. She had a moderate hematoma the posterior right occiput with a localized abrasion with oozing of blood. The wound was not big enough to be sutured. She denies any current headache. She reports chronic right-sided weakness due to her CVA 2019. She has chronic urge incontinence. She denies any dysuria or hematuria. A Green catheter was placed in the ER due to the patient's immobility and pain. She denies having any chest pain or dyspnea on exertion since since she had her STEMI in August of 2020. She denies any cough or congestion. She is aware that she is in the hospital and knows that the hospitalist down the street from her assisted living facility but could not name the hospital. She was oriented to the month but thought the year was 2022. She seemed relatively oriented to the fact that brought her into the hospital. She denies any back pain or new vision changes. She has chronic blindness of the left eye. She reports chronic poor coordination of her right arm and leg. Her speech was clear and fluent until she received morphine at which time she became quite slurred. The patient reportedly had a creatinine of 2.4 few months ago as outpatient. However, her creatinine today is similar to her baseline within our record system of 0.9. She is having good urine output. Review of Systems Review of Systems: 12 systems were reviewed with pertinent positives and negatives per HPI. Except as documented in the HPI, all other systems were reviewed and are negative. 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 Claudication CVA (cerebral vascular accident) (02/2019) With residual right-sided weakness Dementia Diabetes Diabetic peripheral neuropathy Glaucoma both eyes HTN (hypertension) Hx of radiation therapy Hx of tongue cancer Hypercalcemia Hyperlipidemia Hypertriglyceridemia Hypothyroidism (acquired) PAD (peripheral artery disease) Postmenopausal Postoperative atrial fibrillation Post coronary artery bypass 08/2020 Type 2 diabetes mellitus with diabetic polyneuropathy, without long-term current use of insulin Surgical History Surgical History (Updated 09/07/21 @ 04:29 by Nirmala Otto DO) History of ankle luke
[2021-09-07 04:48] LABS: Glucose Point of Care 153 mg/dl (65-105)
[2021-09-07 07:47] LABS: Glucose Point of Care 144 mg/dl (65-105)
--- NOTE | 2021-09-07 08:23 | PM.IMPN ---
Progress Note: A&P Assessment and Plan (1) Closed displaced fracture of left femoral neck: Code(s): S72.002A - Fracture of unspecified part of neck of left femur, initial encounter for closed fracture <Iwona Hernandez PA-C - Last Filed: 09/07/21 13:01> Status: Acute <Iwona Hernandez PA-C - Last Filed: 09/07/21 13:01> Assessment and Plan: Displaced transcervical fracture of the proximal left femur. Patient has intractable pain from her hip fracture. Morphine has been increased to 4 mg Q 4 hours p.r.n. pain. Orthopedic surgery has been consulted. Patient remains NPO for probable surgical procedure. Tylenol has been ordered to pain regimen. Green catheter is in place for comfort and due to patient immobility. Orthopedics will manage pain control and DVT prophylaxis postoperatively Patient will initiate PT and OT after her procedure. <Iwona Hernandez PA-C - Last Filed: 09/07/21 13:01> (2) Type 2 diabetes mellitus with hyperglycemia: Qualifiers: Diabetes mellitus assisted insulin use: without assisted use Qualified Code(s): E11.65 - Type 2 diabetes mellitus with hyperglycemia <Iwona Hernandez PA-C - Last Filed: 09/07/21 13:01> Code(s): E11.65 - Type 2 diabetes mellitus with hyperglycemia <Iwona Hernandez PA-C - Last Filed: 09/07/21 13:01> Status: Acute <Iwona Hernandez PA-C - Last Filed: 09/07/21 13:01> Assessment and Plan: According to outpatient notes the patient's last hemoglobin A1c a few months ago was 6.1%. Patient is slightly hyperglycemic at this time. Will hold patient's oral hypoglycemic agents and patient has been placed on low-dose sliding scale insulin with Accu-Cheks q.6 hours while NPO. Hypoglycemia protocol has been ordered. 09/07- BG 198. Continue diabetic protocol as above and continue to monitor. <Iwona Hernandez PA-C - Last Filed: 09/07/21 13:01> (3) CAD (coronary artery disease), autologous vein bypass graft: Code(s): I25.810 - Atherosclerosis of coronary artery bypass graft(s) without angina pectoris <Iwona Hernandez PA-C - Last Filed: 09/07/21 13:01> Status: Acute <Iwona Hernandez PA-C - Last Filed: 09/07/21 13:01> Assessment and Plan: Patient denies any recent history of chest pain or dyspnea on exertion. According to outpatient cardiology notes patient was having symptoms of claudication and lower extremity edema. Her EKG performed in the ER was unchanged from baseline. The patient has coronary artery disease appears to be stable. Will resume patient's home Plavix aspirin and Lipitor in the postoperative period. <Iwona Hernandez PA-C - Last Filed: 09/07/21 13:01> Assessment and Plan: Patient was admitted as observation status but will likely greater than 2 midnight stay for stabilization of her acute hip fracture. <Iwona Hernandez PA-C - Last Filed: 09/07/21 13:01> Additional Plan I, Jen Romero MD, have not seen or examined this patient. The patient was seen and examined by the midlevel/EDITOR NEWS/PA. The midlevel/EDITOR NEWS/PA independently developed and executed the plan of care. <Jen Romero MD - Last Filed: 09/09/21 15:05> Subjective Date/time seen: 09/07/21 08:23 Patient was very tearful today during my exam. She was in a month's amount of pain, very fearful about going to nursing home facility. She denies chest pain, shortness a breath. She was just given morphine prior to my entering the, however it is evident that had not yet kicked in. She was on board with having her hip repair today with Orthopedics, but again was quite fearful about rehabilitation process <Iwona Hernandez PA-C - Last Filed: 09/07/21 13:01> Review of Systems Review of Systems: All systems reviewed & are unremarkable except as noted in HPI and below <Iwona Hernandez PA-C - Last Filed: 09/07/21 13:01> Exam Narrative: GENERAL APPEARANCE: Alert and oriented x 3, tearful, and in distress.
[2021-09-07 11:43] LABS: Glucose Point of Care 133 mg/dl (65-105)
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
[2021-09-07] MEDS: DICLOFENAC SODIUM 1% 100 GM GEL (*BKC) 2 APPLIC TOPICAL ×3 (12:36→20:49)
[2021-09-07] MEDS: FLUTICASONE PROPIONATE 0.05% NA SPR 16 GM BTL (*BKC) 2 SPRAY NASAL (12:36)
[2021-09-07] MEDS: NEOMYCIN/POLYMYXIN/HYDROCORT OT SUSP 10 ML BTL (*BKC) 4 DROP EACH EAR ×2 (12:36→16:25)
[2021-09-07] MEDS: GABAPENTIN 300 MG CAPSULE PO ×2 (12:48→16:26)
[2021-09-07 16:32] LABS: Glucose Point of Care 164 mg/dl (65-105)
[2021-09-07 20:47] LABS: Glucose Point of Care 150 mg/dl (65-105)
[2021-09-07] MEDS: DULoxetine HCL 20 MG CAPSULE.DR 40 MG PO (20:49)
[2021-09-07] MEDS: DONEPEZIL HCL 10 MG TABLET PO (20:50)
[2021-09-07] MEDS: ATORVASTATIN 40 MG TABLET PO (20:50)
[2021-09-07] MEDS: MEMANTINE 10 MG TABLET PO (20:50)
[2021-09-07] MEDS: FAMOTIDINE 20 MG TABLET PO (20:50)
[2021-09-07] MEDS: hydrOXYzine pamoate 25 MG CAPSULE PO (20:52)
[2021-09-08] VITALS (15 sets, daily range): BP systolic 96–153; BP diastolic 38–70; PULSE 60–92; RESP 10–20; TEMP 36.1–36.8; O2SAT 93–100
[2021-09-08] MEDS: LEVOTHYROXINE SODIUM 125 MCG TABLET PO (06:12)
[2021-09-08] MEDS: diazePAM (*CRX) 5 MG TABLET PO ×2 (06:13→23:17)
[2021-09-08 06:35] LABS: Glucose Point of Care 203 mg/dl (65-105)
[2021-09-08] MEDS: INSULIN ASPART (*BKC) 100 UNITS/ML SUB-Q (06:42)
--- NOTE | 2021-09-08 07:11 | WPDHPUPDATE1 ---
History and Physical Update Update Date/Time: 09/08/21 07:11 History and Physical has been reviewed, including an updated exam of the patient. There are NO changes in the patient's condition. Risks, benefits, and alternatives have been discussed and questions answered. Patient agrees to proceed with procedure.
[2021-09-08 07:56] LABS: Glucose Point of Care 178 mg/dl (65-105)
[2021-09-08] MEDS: MEMANTINE 10 MG TABLET PO ×2 (08:09→20:45)
[2021-09-08] MEDS: FAMOTIDINE 20 MG TABLET PO ×2 (08:09→20:44)
[2021-09-08] MEDS: ESCITALOPRAM OXALATE 10 MG TABLET 20 MG PO (08:09)
[2021-09-08] MEDS: MIRABEGRON 50 MG ER TABLET PO (08:09)
[2021-09-08] MEDS: GABAPENTIN 300 MG CAPSULE PO ×2 (08:09→17:22)
[2021-09-08] MEDS: DULoxetine HCL 20 MG CAPSULE.DR 40 MG PO ×2 (08:09→20:46)
[2021-09-08] MEDS: METOPROLOL SUCCINATE EXT REL 25 MG TABCR PO (08:09)
[2021-09-08] MEDS: LORATADINE 10 MG TABLET PO (08:10)
[2021-09-08] MEDS: MIRTAZAPINE 7.5 MG TABLET PO (08:10)
[2021-09-08] MEDS: NEOMYCIN/POLYMYXIN/HYDROCORT OT SUSP 10 ML BTL (*BKC) 4 DROP EACH EAR ×2 (08:10→17:22)
[2021-09-08] MEDS: DICLOFENAC SODIUM 1% 100 GM GEL (*BKC) 2 APPLIC TOPICAL (08:10)
[2021-09-08 08:16] LABS: Basophils Percent Auto 0.3 % (0.2-1.2); Eosinophils Absolute Auto 0.3 K/mm3 (0-0.3); Eosinophils Percent Auto 3.5 % (0-4.4); Hematocrit 34.4 % (37.0-47.0); Hemoglobin 10.7 g/dL (12.0-15.0); Immature Granulocyte Absolute 0.03 K/mm3 (0.00-0.031); Immature Granulocyte Percent A 0.3 % (0-0.5); Lymphocytes Absolute Auto 0.89 K/mm3 (0.9-3.2); Lymphocytes Percent Auto 9.4 % (18.3-44.2); Mean Corpuscular HGB Conc 31.1 g/dl (32-36); Mean Corpuscular Hemoglobin 27.3 pg (26-34); Mean Corpuscular Volume 87.8 fl (80-100); Mean Platelet Volume 10.3 fl (7.4-10.4); Monocytes Absolute Auto 0.6 K/mm3 (0.1-0.6); Monocytes Percent Auto 6.4 % (2.6-8.5); Neutrophils Absolute Auto 7.5 K/mm3 (1.3-6.7); Neutrophils Percent Auto 80.1 % (45.5-73.1); Platelet Count Result 168 k/mm3 (150-375); Red Blood Count 3.92 M/mm3 (4.2-5.4); Red Cell Distribution Width 13.8 % (11.5-14.5); White Blood Count 9.4 K/mm3 (4.5-10.0)
[2021-09-08 08:25] LABS: Anion Gap 7 mmol/L (8-16); Blood Urea Nitrogen 25 mg/dL (7-17); Calcium 9.1 mg/dL (8.4-10.2); Carbon Dioxide 30 mmol/L (22-30); Chloride 105 mmol/L (98-107); Estimated CRCL calculation 37 ml/min; Estimated Glomerular Filt Rate 55; Glucose 192 mg/dL (65-110); Potassium 4.6 mmol/L (3.4-5.0); Sodium 142 mmol/L (137-145)
[2021-09-08] MEDS: FLUTICASONE PROPIONATE 0.05% NA SPR 16 GM BTL (*BKC) 2 SPRAY NASAL (08:30)
--- NOTE | 2021-09-08 10:29 | PM.IMPN ---
Progress Note: A&P Assessment and Plan (1) Closed displaced fracture of left femoral neck: Code(s): S72.002A - Fracture of unspecified part of neck of left femur, initial encounter for closed fracture Status: Acute Assessment and Plan: -Displaced transcervical fracture of the proximal left femur. 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 Patient is slightly hyperglycemic at this time. Will hold patient's oral hypoglycemic agents and patient has been placed on low-dose sliding scale insulin with Accu-Cheks q.6 hours while NPO. Hypoglycemia protocol has been ordered. 09/07- BG 198. Continue diabetic protocol as above and continue to monitor. 09/08 - BG 192. Will increase to moderate dose SS. (3) CAD (coronary artery disease), autologous vein bypass graft: Code(s): I25.810 - Atherosclerosis of coronary artery bypass graft(s) without angina pectoris Status: Acute Assessment and Plan: Patient denies any recent history of chest pain or dyspnea on exertion. According to outpatient cardiology notes patient was having symptoms of claudication and lower extremity edema. Her EKG performed in the ER was unchanged from baseline. The patient has coronary artery disease appears to be stable. Will resume patient's home Plavix aspirin and Lipitor in the postoperative period. Subjective Date/time seen: 09/08/21 10:29 Interval history: 70-year-old female with a past medical history of coronary artery disease, CVA, essential hypertension, hyperlipidemia, dementia, depression, hypothyroidism, GERD and urge urinary incontinence, admitted for hip fracture. Pt is going to OR today. She is A/Ox2. Somnolent but arousable. Denies pain currently. Further hx limited secondary to mental status. Review of Systems Review of Systems: ROS unobtainable: Yes unobtainable due to mental status Exam Narrative: General: No acute distress, non toxic appearing, somnolent but arousable Eyes: PERRL, no scleral icterus HEENT: NCAT, external ears normal, MMM Respiratory: No respiratory distress, Lungs CTA bilaterally, no wheezing Cardiovascular: RRR, no murmur Abdominal: Soft, nontender, non distended, no rebound or guarding Musculoskeletal: L hip held in flexion, no pedal edema Neurological: A/Ox2, speech clear, no facial asymmetry Skin: Warm, dry, no rashes Psychiatric: Confused Objective Data Vital Signs Vital Signs: Vital Signs - 24 hr 09/07/21 16:25 09/07/21 21:43 09/08/21 06:00 Temperature 98.3 F 98.4 F 97.4 F L Pulse Rate 73 83 85 Respiratory Rate 16 16 16 Blood Pressure 136/64 165/98 H 153/70 H Pulse Oximetry 99 92 93 Oxygen Delivery Oxygen Flow Rate 09/08/21 08:09 09/08/21 08:31 Temperature Pulse Rate 92 Respiratory Rate Blood Pressure Pulse Oximetry 94 Oxygen Delivery Nasal Cannula Oxygen Flow Rate 1 Intake/Output Intake/Output: Intake & Output 09/05/21 09/06/21 09/07/21 09/08/21 23:59 23:59 23:59 23:59 Intake Total 680 100 Output Total 375 350 Balance 305 -250 Meds/Results Medications: Active Medications Generic Name Dose Route Start Last Admin Trade Name Freq PRN Reason Stop Dose Admin Atorvastatin Calcium 40 mg 09/07/21 21:00 09/07/21 20:50 Atorvastatin 40 Mg Tablet PO 40 mg HS NUZHAT Administration Dextrose 12.5 gm 09/07/21 04:27 Dextrose 50% 25 Gm/50 Ml Syringe IV PUSH PRN PRN Hypoglycemia Protocol Di
[2021-09-08] MEDS: MORPHINE SULFATE (*CRX) 4 MG/ML INJ IV PUSH ×3 (10:53→23:18)
--- NOTE | 2021-09-08 11:11 | SUR.PREOP ---
consent dated for 09/07/21,explained to pt changing date to today 09/08/21 and pt and poa initialed
[2021-09-08] MEDS: LACTATED RINGERS 1,000 ML 30 ML IV CONT ×2 (11:16→14:36)
--- NOTE | 2021-09-08 11:29 | WPDANESEPPF ---
Anes - Initial Pre Proc Eval Procedure: Operation Date: 09/08/21 12:00 Proposed Procedures p Left Bipolar Hip Replacement - Giorgio Parra MD Date/Time: 09/08/21 11:29 Surgeon: Cecily Gurrola PA-C Pre Op Diagnosis: left femoral neck fracture Patient Data Age: 70 Gender: F Height: 1.6 m Weight: 67.4 kg Last Vital Signs Temp 36.1 C L 09/08/21 11:03 Pulse 63 09/08/21 11:03 Resp 16 09/08/21 11:03 BP 96/38 L 09/08/21 11:03 Pulse Ox 98 09/08/21 11:03 O2 Del Method Nasal Cannula 09/08/21 11:03 O2 Flow Rate 2 09/08/21 11:03 Allergies Allergy/AdvReac Type Severity Reaction Status Date / Time codeine Allergy Intermediate Unknown Verified 09/07/21 00:51 Sulfa (Sulfonamide Allergy Intermediate unknown Verified 09/07/21 00:51 Antibiotics) Penicillins Allergy Unknown Hives Verified 09/07/21 00:51 Contrast Media Allergy Unknown Dyspnea / Uncoded 09/07/21 00:51 SOB Home Medications Medication Instructions Recorded Confirmed Type gabapentin 100 mg capsule 300 mg PO TID 03/06/19 09/07/21 History memantine 10 mg tablet (Namenda) 10 mg PO BID 03/06/19 09/07/21 History mirabegron 50 mg tablet,extended 50 mg PO DAILY 03/06/19 09/07/21 History release 24 hr (Myrbetriq) venlafaxine 150 mg 150 mg PO DAILY 03/06/19 09/07/21 History capsule,extended release 24 hr aspirin 81 mg tablet,delayed 81 mg PO DAILY #30 tabs 03/07/19 09/07/21 Rx release clopidogrel 75 mg tablet 75 mg PO DAILY 05/12/21 09/07/21 History donepezil 10 mg tablet 10 mg PO QHS 05/12/21 09/07/21 History duloxetine 40 mg capsule,delayed 40 mg PO BID 05/12/21 09/07/21 History release fluticasone propionate 50 2 spray intranasal DAILY 05/12/21 09/07/21 History mcg/actuation nasal spray,suspension (Flonase Allergy Relief) liraglutide 0.6 mg/0.1 mL (18 mg/3 0.6 mg subcut DAILY 05/12/21 09/07/21 History mL) subcutaneous pen injector ([employer] 2-Yann) naproxen 250 mg tablet 220 mg PO BID PRN Pain 05/12/21 09/07/21 History nitroglycerin 0.4 mg sublingual 0.4 mg sublingual Q5M PRN Chest 05/12/21 09/07/21 History tablet Pain polyethylene glycol 3350 17 17 g PO DAILY PRN constipation 05/12/21 09/07/21 History gram/dose oral powder sitagliptin 100 mg tablet (Januvia) 100 mg PO DAILY 05/12/21 09/07/21 History zonisamide 100 mg capsule 100 mg PO DAILY PRN Dizziness 05/12/21 09/07/21 History escitalopram oxalate 20 mg tablet 20 mg PO DAILY 06/16/21 09/07/21 History famotidine 20 mg tablet 20 mg PO BID 06/16/21 09/07/21 History fexofenadine 180 mg tablet 180 mg PO DAILY 06/16/21 09/07/21 History glimepiride 2 mg tablet 2 mg PO DAILY 06/16/21 09/07/21 History levothyroxine 150 mcg tablet 125 mcg PO DAILY 06/16/21 09/07/21 History atorvastatin 40 mg tablet 40 mg PO HS 09/07/21 09/07/21 History clobetasol 0.05 % scalp solution 1 applic topical BID 09/07/21 09/07/21 History diclofenac sodium 1 % topical gel 2 g topical QID 09/07/21 09/07/21 History loratadine 10 mg tablet 10 mg PO DAILY 09/07/21 09/07/21 History metoprolol succinate 25 mg 25 mg PO DAILY 09/07/21 09/07/21 History tablet,extended release 24 hr mirtazapine 7.5 mg tablet 7.5 mg PO DAILY 09/07/21 09/07/21 History ydpldstg-[id number]-azvpnilxc 3.5 3.5 drp otic (ear) QID 09/07/21 09/07/21 History mg-10,000 unit/mL-1 % ear drops,susp Laboratory Tests 09/07/21 09/07/21 09/07/21 11:40 12:14 16:30 WBC RBC Hgb Hct MCV MCH MCHC RDW Plt Count MPV Immature Gran % (Auto) Neut % (Auto) Lymph % (Auto) [place] % (Auto) Eos % (Auto) Baso % (Auto) Lymph # (Auto) [place] # (Auto) Eos # (Auto) Baso # (Auto) Abs Immat Gran (auto) Absolute Neuts (auto) Absolute Nucleated RBC
[2021-09-08] MEDS: TRANEXAMIC ACID 1,000MG/ISO100 1,000 MG/100 ML BAG 200 MG IVPB (11:35)
--- NOTE | 2021-09-08 11:37 | SUR.PREOP ---
no scrub to left hip with pt complaints severe pain
[2021-09-08] MEDS: ceFAZolin 2 GM/D5W 50 ML 2 GM/50 ML BAG IVPB ×2 (12:28→20:42)
--- NOTE | 2021-09-08 14:34 | W.PM.PROC2 ---
Procedure Note - Detailed Date of Procedure 09/08/21 Pre-op Diagnosis left femoral neck fracture Post-op Diagnosis Same Procedure Performed LEFT HIP HEMIARTHROPLASTY WITH BIPOLAR PROSTHESIS Surgeon Giorgio Parra MD Anesthesia General Description of Procedure THE PATIENT WAS TAKEN TO THE OPERATING ROOM IN STABLE CONDITION AND WAS PLACED IN THE LATERAL DECUBITUS AND THE LEFT LOWER EXTREMITY WAS PREPPED AND DRAPED IN THE STERILE FASHION. INCISION WAS MADE IN THE POSTERIOR LATERAL SIDE OF THE HIP, DOWN TO THE FASCIA LAYER. THE FASCIA WAS INCISED. THE HIP WAS EXPOSED. THE SHORT EXTERNAL ROTATORS WERE EXPOSED AND THERE WAS A LARGE HEMATOMA. THE CAPSULE WAS INCISED EXPOSING THE FRACTURE. THE FEMORAL HEAD WAS REMOVED. IT MEASURED 46 MM. AN OSTEOTOMY WAS MADE TO THE FEMORAL NECK ABOUT 1 CM PROXIMAL TO THE LESSER TROCHANTER. NEXT THE FEMUR WAS PREPARED WITH INITIAL CANAL FINDER THEN SEQUENTIAL REAMING UNTIL A #10 REAMER AND BROACHING TILL A #10 BROACH FIT WELL IN 15 OF ANTE VERSION. A +0 STANDARD OFFSET NECK BIPOLAR TRIAL IN A 46 MM SHELL WAS PLACED. THE SHUCK TEST WAS EXCELLENT AND THE STABILITY IN FLEXION AND ROTATION WAS EXCELLENT. LEG LENGTHS WERE GROSSLY EQUAL. TRIALS WERE REMOVED. AN ECHO FRACTURE STEM #10 PRESS FIT STEM WAS PLACED WITH A STANDARD OFFSET IN 15 DEG OF ANTEVERSION. A +0 BIPOLAR HEAD NECK TRIAL WAS PLACED AGAIN. THE HIP WAS TRIALED AND THE STABILITY WAS EXCELLENT WERE THE LEG LENGTHS AND THE SHUCK TEST. NEXT A BIPOLAR HEAD NECK +0 IMPLANT WITH A 46 MM COBALT CHROME SHELL WAS PLACED AND TRIALED ONCE AGAIN SHOWING EXCELLENT STABILITY AND GROSSLY EQUAL LEG LENGTHS. THE WOUND WAS IRRIGATED WITH STERILE BETADINE AND WATER FOR 3 MIN. THEN WASHED AGAIN. THE CAPSULE AND THE EXTERNAL ROTATORS WERE APPROXIMATED WITH NUMBER 1 VICRYL. THE FASCIA WITH No 2 QUIL AND THE SUB CUTANEOUS LAYER WITH 2-0 ABSORBABLE SUTURE WITH A RUNNING 3-0 SUBCUTICULAR LAYER WELL. DERMABOND WAS PLACED AND STERILE DRESSING WAS APPLIED. PATIENT WAS PLACED BACK ON TO THE SUPINE POSITION AND WAS EXTUBATED. Estimated Blood Loss 200 Drains No Pathology None sent Complications No immediate complications Condition Stable Disposition PACU
[2021-09-08 15:04] LABS: Glucose Point of Care 148 mg/dl (65-105)
[2021-09-08 16:47] LABS: Glucose Point of Care 168 mg/dl (65-105)
[2021-09-08] MEDS: SENNA/DOCUSATE SODIUM TABLET 2 TAB PO (17:22)
[2021-09-08] MEDS: SODIUM CHLORIDE 0.9% IV 1,000 ML 90 ML IV CONT (18:12)
[2021-09-08] MEDS: HYDROcodone/acetaminophen (*CRX) 5-325 MG TABLET 1 TAB PO (20:44)
[2021-09-08] MEDS: HEPARIN SODIUM 5,000 UNITS/ML VIAL 5000 UNITS SUB-Q (20:45)
[2021-09-08] MEDS: ATORVASTATIN 40 MG TABLET PO (20:45)
[2021-09-08] MEDS: DONEPEZIL HCL 10 MG TABLET PO (20:46)
[2021-09-08] MEDS: hydrOXYzine pamoate 25 MG CAPSULE PO (21:03)
[2021-09-09] VITALS (7 sets, daily range): BP systolic 101–129; BP diastolic 42–55; PULSE 61–82; RESP 18–22; TEMP 36.3–37.7; O2SAT 95–100
[2021-09-09 00:50] LABS: Glucose Point of Care 190 mg/dl (65-105)
[2021-09-09] MEDS: ceFAZolin 2 GM/D5W 50 ML 2 GM/50 ML BAG IVPB ×2 (03:52→12:29)
[2021-09-09] MEDS: LEVOTHYROXINE SODIUM 125 MCG TABLET PO (05:59)
[2021-09-09] MEDS: HYDROcodone/acetaminophen (*CRX) 5-325 MG TABLET 1 TAB PO (06:01)
[2021-09-09 06:21] LABS: Basophils Percent Auto 0.3 % (0.2-1.2); Eosinophils Absolute Auto 0.2 K/mm3 (0-0.3); Hematocrit 26.3 % (37.0-47.0); Hemoglobin 7.9 g/dL (12.0-15.0); Immature Granulocyte Absolute 0.04 K/mm3 (0.00-0.031); Immature Granulocyte Percent A 0.6 % (0-0.5); Lymphocytes Absolute Auto 0.45 K/mm3 (0.9-3.2); Lymphocytes Percent Auto 6.5 % (18.3-44.2); Mean Corpuscular Hemoglobin 27.3 pg (26-34); Mean Platelet Volume 10.9 fl (7.4-10.4); Monocytes Absolute Auto 0.5 K/mm3 (0.1-0.6); Monocytes Percent Auto 7.3 % (2.6-8.5); Neutrophils Absolute Auto 5.7 K/mm3 (1.3-6.7); Neutrophils Percent Auto 82.3 % (45.5-73.1); Platelet Count Result 132 k/mm3 (150-375); Red Blood Count 2.89 M/mm3 (4.2-5.4); Red Cell Distribution Width 13.8 % (11.5-14.5)
[2021-09-09 06:25] LABS: Anion Gap 7 mmol/L (8-16); Blood Urea Nitrogen 27 mg/dL (7-17); Calcium 8.5 mg/dL (8.4-10.2); Carbon Dioxide 29 mmol/L (22-30); Chloride 103 mmol/L (98-107); Estimated CRCL calculation 31 ml/min; Estimated Glomerular Filt Rate 44; Glucose 180 mg/dL (65-110); Potassium 4.6 mmol/L (3.4-5.0); Sodium 139 mmol/L (137-145)
--- NOTE | 2021-09-09 07:47 | PM.IMPN ---
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 BG 148-226. -Would restart home medications except for the glimepiride and do SSI for now -POC glucose checks (3) CAD (coronary artery disease), autologous vein bypass graft: Code(s): I25.810 - Atherosclerosis of coronary artery bypass graft(s) without angina pectoris Status: Acute Assessment and Plan: Continue bb, ASA, statin. (4) Weakness: Code(s): R53.1 - Weakness Status: Acute Assessment and Plan: Physical therapist called concerned the patient was neglecting her left side and had left sided facial droop. By the time, I made it to see the patient nursing and physical therapy reported the patient was moving the left side well and had no facial droop. Give hx of stroke with residual right sided weakness CT head was orderd. CT head showed no acute intracranial findings and the patient had no new deficits on my exam. Subjective Date/time seen: 09/09/21 07:47 Patient says she has hip pain. Per family & longterm patient had a previous stroke and has chronic weakness on the right side. Exam Narrative: GENERAL: NAD, cooperative HEENT: Normocephalic, atraumatic, anicteric, nares clear, oropharynx moist and clear, edentulous NECK: Supple CV: Normal S1, S2, RRR, No MRG RESP: CTAB, Normal work of breathing. EXTREMITIES: Warm and well perfused, no clubbing, cyanosis, or edema. SKIN: warm, dry and intact. NEURO: A&Ox 2. Chronic right sided weakness from old stroke. Move LUE spontaneously but has generalized weakness. Objective Data Vital Signs Vital Signs: Vital Signs - 24 hr 09/08/21 08:09 09/08/21 08:31 09/08/21 11:03 Temperature 97 F L Pulse Rate 92 63 Respiratory Rate 16 Blood Pressure 96/38 L Pulse Oximetry 94 98 Oxygen Delivery Nasal Cannula Nasal Cannula Oxygen Flow Rate 1 2 09/08/21 14:40 09/08/21 14:55 09/08/21 15:10 Temperature 97.2 F L Pulse Rate 73 72 72 Respiratory Rate 10 L 10 L 10 L Blood Pressure 138/52 L 117/48 L 107/46 L Pulse Oximetry 100 100 100 Oxygen Delivery Simple Face Mask Simple Face Mask Simple Face Mask Oxygen Flow Rate 8 8 8 09/08/21 15:25 09/08/21 15:40 09/08/21 15:55 Temperature Pulse Rate 70 70 69 Respiratory Rate 10 L 12 10 L Blood Pressure 129/48 L 125/48 L 122/44 L Pulse Oximetry 100 97 96 Oxygen Delivery Simple Face Mask Nasal Cannula Nasal Cannula Oxygen Flow Rate 8 2 2 09/08/21 16:35 09/08/21 16:50 09/08/21 17:20 Temperature 97.8 F 98.0 F 98.3 F Pulse Rate 69 60 73 Respiratory Rate 16 16 18 Blood Pressure 115/40 L 129/46 L 136/59 L Pulse Oximetry 99 100 100 Oxygen Delivery Oxygen Flow Rate 09/08/21 18:20 09/08/21 20:15 09/09/21 00:51 Temperature 98.2 F 97.3 F L 97.3 F L Pulse Rate 71 69 61 Respiratory Rate 16 20 18 Blood Pressure 100/56 L 105/43 L 101/53 L Pulse Oximetry 100 98 96 Oxygen Delivery Oxygen Flow Rate 09/09/21 05:56 Temperature 99.8 F H Pulse Rate 81 Respiratory Rate 21 H Blood Pressure 112/48 L Pulse Oximetry 100 Oxygen Delivery Oxygen Flow Rate Intake/Output Intake/Output: Intake & Output 09/06/21 09/07/21 09/08/21 09/09/21 23:59 23:59 23:59 23:
--- NOTE | 2021-09-09 08:00 | WPDANESPN ---
Anes - Prog Note Post-Op Date/Time: 09/09/21 08:00 Cardiovascular status: normal Respiratory status: normal Airway patency: baseline Mental status: baseline Post-Op hydration status: normal Vital Signs: Last Vital Signs Temp 37.7 C H 09/09/21 05:56 Pulse 81 09/09/21 05:56 Resp 21 H 09/09/21 05:56 BP 112/48 L 09/09/21 05:56 Pulse Ox 100 09/09/21 05:56 O2 Del Method Nasal Cannula 09/08/21 15:55 O2 Flow Rate 2 09/08/21 15:55 Pain Score (VAS): 3 I/O: Intake & Output 09/08/21 09/09/21 09/09/21 23:59 07:59 15:59 Intake Total 290 100 Output Total 300 Balance 290 -200 Laboratory Tests 09/09/21 05:33 09/09/21 05:33 09/08/21 09/08/21 09/08/21 08:00 08:00 15:01 WBC 9.4 RBC 3.92 L Hgb 10.7 L Hct 34.4 L MCV 87.8 MCH 27.3 MCHC 31.1 L RDW 13.8 Plt Count 168 MPV 10.3 Immature Gran % (Auto) 0.3 Neut % (Auto) 80.1 H Lymph % (Auto) 9.4 L [place] % (Auto) 6.4 Eos % (Auto) 3.5 Baso % (Auto) 0.3 Lymph # (Auto) 0.89 L [place] # (Auto) 0.6 Eos # (Auto) 0.3 Baso # (Auto) 0.0 Abs Immat Gran (auto) 0.03 Absolute Neuts (auto) 7.5 H Absolute Nucleated RBC 0.0 Nucleated RBC % 0.0 Sodium 142 Potassium 4.6 Chloride 105 Carbon Dioxide 30 Anion Gap 7 L BUN 25 H Creatinine 1.00 Estim Creat Clear Calc 37 Estimated GFR 55 L Glucose 192 H POC Capillary Glucose 148 H Calcium 9.1 09/08/21 09/09/21 09/09/21 16:43 00:45 05:33 WBC 7.0 RBC 2.89 L Hgb 7.9 L Hct 26.3 L MCV 91.0 MCH 27.3 MCHC 30.0 L RDW 13.8 Plt Count 132 L MPV 10.9 H Immature Gran % (Auto) 0.6 H Neut % (Auto) 82.3 H Lymph % (Auto) 6.5 L [place] % (Auto) 7.3 Eos % (Auto) 3.0 Baso % (Auto) 0.3 Lymph # (Auto) 0.45 L [place] # (Auto) 0.5 Eos # (Auto) 0.2 Baso # (Auto) 0.0 Abs Immat Gran (auto) 0.04 H Absolute Neuts (auto) 5.7 Absolute Nucleated RBC 0.0 Nucleated RBC % 0.0 Sodium Potassium Chloride Carbon Dioxide Anion Gap BUN Creatinine Estim Creat Clear Calc Estimated GFR Glucose POC Capillary Glucose 168 H 190 H Calcium 09/09/21 05:33 WBC RBC Hgb Hct MCV MCH MCHC RDW Plt Count MPV Immature Gran % (Auto) Neut % (Auto) Lymph % (Auto) [place] % (Auto) Eos % (Auto) Baso % (Auto) Lymph # (Auto) [place] # (Auto) Eos # (Auto) Baso # (Auto) Abs Immat Gran (auto) Absolute Neuts (auto) Absolute Nucleated RBC Nucleated RBC % Sodium 139 Potassium 4.6 Chloride 103 Carbon Dioxide 29 Anion Gap 7 L BUN 27 H Creatinine 1.20 H Estim Creat Clear Calc 31 Estimated GFR 44 L Glucose 180 H POC Capillary Glucose Calcium 8.5 Post-procedural complaints: none Patient Feedback: Patient satisfied with anesthetic care.
[2021-09-09 08:07] LABS: Glucose Point of Care 180 mg/dl (65-105)
[2021-09-09] MEDS: FAMOTIDINE 20 MG TABLET PO ×2 (08:55→20:31)
[2021-09-09] MEDS: GABAPENTIN 300 MG CAPSULE PO (08:55)
[2021-09-09] MEDS: VENLAFAXINE HCL XR 75 MG CAP.ER.24H 150 MG PO (08:55)
[2021-09-09] MEDS: SENNA/DOCUSATE SODIUM TABLET 2 TAB PO (08:56)
[2021-09-09] MEDS: DULoxetine HCL 20 MG CAPSULE.DR 40 MG PO (08:56)
[2021-09-09] MEDS: ESCITALOPRAM OXALATE 10 MG TABLET 20 MG PO (08:56)
[2021-09-09] MEDS: CLOPIDOGREL BISULFATE 75 MG TABLET PO (08:56)
[2021-09-09] MEDS: MIRTAZAPINE 7.5 MG TABLET PO (08:56)
[2021-09-09] MEDS: LORATADINE 10 MG TABLET PO (08:56)
[2021-09-09] MEDS: ASPIRIN 81 MG ENTERIC TABLET PO (08:57)
[2021-09-09] MEDS: MIRABEGRON 50 MG ER TABLET PO (08:57)
[2021-09-09] MEDS: GLIMEPIRIDE 2 MG TABLET PO (08:57)
[2021-09-09] MEDS: MEMANTINE 10 MG TABLET PO ×2 (08:57→20:31)
[2021-09-09] MEDS: METOPROLOL SUCCINATE EXT REL 25 MG TABCR PO (08:57)
[2021-09-09] MEDS: FLUTICASONE PROPIONATE 0.05% NA SPR 16 GM BTL (*BKC) 2 SPRAY NASAL (08:58)
[2021-09-09] MEDS: polyethylene glycoL 3350 17 GM POWD.PACK PO (08:58)
[2021-09-09] MEDS: HEPARIN SODIUM 5,000 UNITS/ML VIAL 5000 UNITS SUB-Q ×2 (08:59→20:28)
[2021-09-09] MEDS: SODIUM CHLORIDE 0.9% IV 1,000 ML 90 ML IV CONT (12:19)
[2021-09-09 12:24] LABS: Glucose Point of Care 226 mg/dl (65-105)
[2021-09-09] MEDS: INSULIN ASPART (*BKC) 100 UNITS/ML SUB-Q ×2 (12:25→18:26)
--- NOTE | 2021-09-09 16:35 | PM.PNORT ---
Progress Note: A&P Assessment and Plan (1) Closed displaced fracture of left femoral neck: Code(s): S72.002A - Fracture of unspecified part of neck of left femur, initial encounter for closed fracture Status: Acute Assessment and Plan: POD 1 WITH SOME CONFUSION AND LETHARGY. SOME OF THIS IS HER BASELINE ACCORDING TO NURSING AND FAMILY. HEAD CT NEGATIVE FOR RECENT STROKE. RECOMMEND CONTINUE PT ONCE SHE CAN PARTICIPATE. Plan S/P LEFT BIPOLAR HEMIARTHROPLASTY POD 1 WITH SOME CONFUSION AND LETHARGY. SHE WILL PARTICIPATE IN PT ONCE SHE IS MORE ALERT. Subjective Subjective Date/Time Seen: 09/09/21 16:35 POD 1. SHE SEEMS LETHARGIC THIS AFTERNOON. SHE WAS MORE ALERT EARLIER IN THE DAY ACCORDING TO NURSING. SHE HAD A HEAD CT WHICH WAS NEGATIVE FOR STROKE. SHE HAS NO CALF PAIN. SHE FOLLOWS COMMANDS Exam Extrem: Other: VSS AFEBRILE DRESSING DRY [place] INTACT. CALF SOFT NON TENDER NEG HOMANS SIGN, DORSI AND PLANTAR FLEXES LEFT FOOT. Objective Data Vital Signs Vital Signs: Vital Signs - 24 hr 09/08/21 16:50 09/08/21 17:20 09/08/21 18:20 Temperature 36.7 C 36.8 C 36.8 C Pulse Rate 60 73 71 Respiratory Rate 16 18 16 Blood Pressure 129/46 L 136/59 L 100/56 L Pulse Oximetry 100 100 100 Oxygen Delivery Oxygen Flow Rate 09/08/21 20:15 09/09/21 00:51 09/09/21 05:56 Temperature 36.3 C L 36.3 C L 37.7 C H Pulse Rate 69 61 81 Respiratory Rate 20 18 21 H Blood Pressure 105/43 L 101/53 L 112/48 L Pulse Oximetry 98 96 100 Oxygen Delivery Oxygen Flow Rate 09/09/21 08:57 09/09/21 09:12 09/09/21 09:56 Temperature Pulse Rate 72 74 Respiratory Rate 18 Blood Pressure 112/42 L Pulse Oximetry 100 Oxygen Delivery Room Air Oxygen Flow Rate 09/09/21 10:30 Temperature Pulse Rate Respiratory Rate Blood Pressure Pulse Oximetry Oxygen Delivery Nasal Cannula Oxygen Flow Rate 2 Intake/Output Intake/Output: Intake & Output 09/06/21 09/07/21 09/08/21 09/09/21 23:59 23:59 23:59 23:59 Intake Total 680 1540 1440 Output Total 375 530 300 Balance 305 1010 1140 Meds/Results Medications: Active Medications Generic Name Dose Route Start Last Admin Trade Name Freq PRN Reason Stop Dose Admin Hydrocodone Bitart/Acetaminophen 1 tab 09/08/21 16:11 09/09/21 06:01 Hydrocodone/Acetaminophen (*Crx) 5-325 Mg Tablet PO 1 tab Q3H PRN Administration Pain Rated 4-6 Aspirin 81 mg 09/09/21 09:00 09/09/21 08:57 Aspirin 81 Mg Enteric Tablet PO 81 mg DAILY NUZHAT Administration Atorvastatin Calcium 40 mg 09/07/21 21:00 09/08/21 20:45 Atorvastatin 40 Mg Tablet PO 40 mg HS NUZHAT Administration Clopidogrel Bisulfate 75 mg 09/09/21 09:00 09/09/21 08:56 Clopidogrel Bisulfate 75 Mg Tablet PO 75 mg DAILY NUZHAT Administration Dextrose 12.5 gm 09/07/21 04:27 Dextrose 50% 25 Gm/50 Ml Syringe IV PUSH PRN PRN Hypoglycemia Protocol Diazepam 5 mg 09/07/21 12:20 09/08/21 23:17 Diazepam (*Crx) 5 Mg Tablet PO 5 mg BID PRN Administration Anxiety Donepezil HCl 10 mg 09/07/21 21:00 09/08/21 20:46 Donepezil Hcl 10 Mg Tablet PO 10 mg QHS NUZHAT Administration Duloxetine HCl 40 mg 09/07/21 09:00 09/09/21 08:56 Duloxetine Hcl 20 Mg Capsule.Dr PO 40 mg Q12HR NUZHAT Administration Escitalopram Oxalate 20 mg 09/07/21 09:00 09/09/21 08:56 Escitalopram Oxalate 10 Mg Tablet PO 20 mg DAILY NUZHAT Administration Famotidine 20 mg 09/07/21 09:00 09/09/21 08:55 Famotidine 20 Mg Tablet PO 20 mg Q12HR NUZHAT Administration Fluticasone Propionate 2 spray 09/07/21 09:00 09/09/21 08:58 Fluticasone Propionate 0.05% Na Spr 16 Gm Btl (*Bkc) NASAL 2 spray DAILY NUZHAT Administration Gabapentin 300 mg 09/07/21 09:00 09/09/21 14:21 Gabapentin 300 Mg Capsule PO Not Given TID NUZHAT Glimepiride 2 mg 09/09/21 08:00 09/09/21 08:57 Glimepiride 2 Mg Tablet PO 2 mg DAILY@0800 [facility] Adm
[2021-09-09 17:59] LABS: Glucose Point of Care 224 mg/dl (65-105)
--- NOTE | 2021-09-09 18:56 | PC.NURSE ---
Patient has been drowsy most of the day. She woke this morning and was alert, answered questions appropriately and AxO 3. She took morning meds without problem PT was in the room and tried to ambulate pt to the recliner. Patient was unable to stand and pivot and wouldn't use left arm. PT notified the hospitalist. Dr Romero came and accessed the pt and ordered a head ct which was negative. Pt ate lunch, but slept most of the day and stated she was just being lazy today and denied pain above [address] or needing pain medication[address] Dr Parra rounded on her late afternoon. Pt temp was 99.9 axillary and resp were 22 @ 17[address]. Dr Parra was notified by phone and he ask for Hospitalist input at this time.
[2021-09-09] MEDS: ATORVASTATIN 40 MG TABLET PO (20:31)
[2021-09-09] MEDS: DONEPEZIL HCL 10 MG TABLET PO (20:31)
[2021-09-09 22:20] LABS: Glucose Point of Care 170 mg/dl (65-105)
[2021-09-10] VITALS (7 sets, daily range): BP systolic 110–150; BP diastolic 51–69; PULSE 64–84; RESP 18–21; TEMP 36.3–37.6; O2SAT 96–100
[2021-09-10] MEDS: SODIUM CHLORIDE 0.9% IV 1,000 ML 90 ML IV CONT (01:34)
[2021-09-10] MEDS: LEVOTHYROXINE SODIUM 125 MCG TABLET PO (05:39)
[2021-09-10 08:02] LABS: Glucose Point of Care 138 mg/dl (65-105)
--- NOTE | 2021-09-10 08:23 | PM.IMPN ---
Progress Note: A&P Assessment and Plan (1) Closed displaced fracture of left femoral neck: Code(s): S72.002A - Fracture of unspecified part of neck of left femur, initial encounter for closed fracture Status: Acute Assessment and Plan: POD#1 s/p left hip hemiarthroplasty with bipolar prosthesis -Management per Orthopedic Surgery (2) Anemia: Code(s): D64.9 - Anemia, unspecified Status: Acute Assessment and Plan: Significant decrease in hemoglobin and hematocrit. -Repeat H/H later today -Hold ASA, plavix and heparin prophylaxis -If h/h low, CT abdomen pelvis & CT left lower extremity (3) Type 2 diabetes mellitus with hyperglycemia: Qualifiers: Diabetes mellitus rn long term care insulin use: without rn long term care use Qualified Code(s): E11.65 - Type 2 diabetes mellitus with hyperglycemia Code(s): E11.65 - Type 2 diabetes mellitus with hyperglycemia Status: Acute Assessment and Plan: According to outpatient notes the patient's last hemoglobin A1c a few months ago was 6.1%. BG 148-226. -Would restart home medications except for the glimepiride and do SSI for now -POC glucose checks (4) CAD (coronary artery disease), autologous vein bypass graft: Code(s): I25.810 - Atherosclerosis of coronary artery bypass graft(s) without angina pectoris Status: Acute Assessment and Plan: Continue bb, ASA, statin. (5) Weakness: Code(s): R53.1 - Weakness Status: Acute Assessment and Plan: Physical therapist called concerned the patient was neglecting her left side and had left sided facial droop. By the time, I made it to see the patient nursing and physical therapy reported the patient was moving the left side well and had no facial droop. Give hx of stroke with residual right sided weakness CT head was orderd. CT head showed no acute intracranial findings and the patient had no new deficits on my exam. Additional Plan Subjective Date/time seen: 09/10/21 08:23 Patient says her hip is very painful. She says she feels like crap today. Review of Systems Musculoskeletal: Musculoskeletal: Reports arthralgias Exam Narrative: GENERAL: NAD, cooperative HEENT: Normocephalic, atraumatic, anicteric, nares clear, oropharynx moist and clear, edentulous NECK: Supple CV: Normal S1, S2, RRR, No MRG RESP: CTAB, Normal work of breathing. EXTREMITIES: Warm and well perfused, no clubbing, cyanosis, or edema. TTP to left hip but no visible ecchymosis or hematoma. SKIN: warm, dry and intact. NEURO: A&Ox 2. Chronic right sided weakness from old stroke. . Objective Data Vital Signs Vital Signs: Vital Signs - 24 hr 09/09/21 08:57 09/09/21 09:12 09/09/21 09:56 Temperature Pulse Rate 72 74 Respiratory Rate 18 Blood Pressure 112/42 L Pulse Oximetry 100 Oxygen Delivery Room Air Oxygen Flow Rate 09/09/21 10:30 09/09/21 13:56 09/09/21 17:56 Temperature 98.0 F 99.9 F H Pulse Rate 80 82 Respiratory Rate 20 22 H Blood Pressure 129/50 L 127/53 L Pulse Oximetry 95 Oxygen Delivery Nasal Cannula Oxygen Flow Rate 2 09/09/21 21:38 09/10/21 01:26 09/10/21 06:54 Temperature 99.0 F 99.0 F 97.4 F L Pulse Rate 80 84 83 Respiratory Rate 20 18 21 H Blood Pressure 114/55 L 139/69 150/68 H Pulse Oximetry 98 96 100 Oxygen Delivery Oxygen Flow Rate Intake/Output Intake/Output: Intake & Output 09/07/21 09/08/21 09/09/21 09/10/21 23:59 23:59 23:59 23:59 Intake Total 680 1540 1440 1050 Output Total 375 530 525 400 Balance 305 1010 915 650 Meds/Results Medications: Active Medications Generic Name Dose Route Start Last Admin Trade Name Freq PRN Reason Stop Dose Admin Acetaminophen 1,000 mg 09/10/21 01:01 Acetaminophen 500 Mg Tablet PO Q6H PRN Mild Pain (1-3) or Fever Hydrocodone Bitart/Acetaminophen 1 tab 09/08/21 16:11 09/09/21 06:
[2021-09-10 09:04] LABS: Basophils Percent Auto 0.3 % (0.2-1.2); Eosinophils Absolute Auto 0.2 K/mm3 (0-0.3); Eosinophils Percent Auto 3.6 % (0-4.4); Hematocrit 25.2 % (37.0-47.0); Hemoglobin 7.8 g/dL (12.0-15.0); Immature Granulocyte Absolute 0.05 K/mm3 (0.00-0.031); Immature Granulocyte Percent A 0.9 % (0-0.5); Lymphocytes Absolute Auto 0.51 K/mm3 (0.9-3.2); Lymphocytes Percent Auto 8.8 % (18.3-44.2); Mean Corpuscular Hemoglobin 27.9 pg (26-34); Mean Platelet Volume 10.6 fl (7.4-10.4); Monocytes Absolute Auto 0.3 K/mm3 (0.1-0.6); Monocytes Percent Auto 5.3 % (2.6-8.5); Neutrophils Absolute Auto 4.7 K/mm3 (1.3-6.7); Neutrophils Percent Auto 81.1 % (45.5-73.1); Platelet Count Result 139 k/mm3 (150-375); Red Cell Distribution Width 13.7 % (11.5-14.5); White Blood Count 5.8 K/mm3 (4.5-10.0)
[2021-09-10 09:20] LABS: Anion Gap 8 mmol/L (8-16); Blood Urea Nitrogen 18 mg/dL (7-17); Calcium 8.9 mg/dL (8.4-10.2); Carbon Dioxide 26 mmol/L (22-30); Chloride 106 mmol/L (98-107); Estimated CRCL calculation 46 ml/min; Estimated Glomerular Filt Rate > 60; Glucose 145 mg/dL (65-110); Potassium 4.1 mmol/L (3.4-5.0); Sodium 140 mmol/L (137-145)
--- NOTE | 2021-09-10 10:12 | PCPTNOTE ---
Attempted to see patient for PT, however patient unable to wake up enough to participate in therapy.
[2021-09-10] MEDS: polyethylene glycoL 3350 17 GM POWD.PACK PO (11:01)
[2021-09-10] MEDS: ASPIRIN 81 MG ENTERIC TABLET PO (11:02)
[2021-09-10] MEDS: ESCITALOPRAM OXALATE 10 MG TABLET 20 MG PO (11:02)
[2021-09-10] MEDS: GLIMEPIRIDE 2 MG TABLET PO (11:02)
[2021-09-10] MEDS: CLOPIDOGREL BISULFATE 75 MG TABLET PO (11:02)
[2021-09-10] MEDS: DULoxetine HCL 20 MG CAPSULE.DR 40 MG PO ×2 (11:02→21:37)
[2021-09-10] MEDS: SENNA/DOCUSATE SODIUM TABLET 2 TAB PO ×2 (11:02→16:56)
[2021-09-10] MEDS: VENLAFAXINE HCL XR 75 MG CAP.ER.24H 150 MG PO (11:03)
[2021-09-10] MEDS: GABAPENTIN 300 MG CAPSULE PO ×3 (11:04→16:56)
[2021-09-10] MEDS: FAMOTIDINE 20 MG TABLET PO ×2 (11:04→21:37)
[2021-09-10] MEDS: FLUTICASONE PROPIONATE 0.05% NA SPR 16 GM BTL (*BKC) 2 SPRAY NASAL (11:04)
[2021-09-10] MEDS: HEPARIN SODIUM 5,000 UNITS/ML VIAL 5000 UNITS SUB-Q (11:04)
[2021-09-10] MEDS: LORATADINE 10 MG TABLET PO (11:05)
[2021-09-10] MEDS: MIRABEGRON 50 MG ER TABLET PO (11:05)
[2021-09-10] MEDS: MEMANTINE 10 MG TABLET PO ×2 (11:05→21:37)
[2021-09-10] MEDS: MIRTAZAPINE 7.5 MG TABLET PO (11:06)
[2021-09-10] MEDS: METOPROLOL SUCCINATE EXT REL 25 MG TABCR PO (11:06)
[2021-09-10] MEDS: ACETAMINOPHEN 500 MG TABLET 1000 MG PO (11:08)
[2021-09-10 11:26] LABS: Glucose Point of Care 149 mg/dl (65-105)
--- NOTE | 2021-09-10 12:11 | PCOTNOTE ---
Attempted 2x to see patient this AM for OT treatment. Patient participated none/minimally, with max cues for participation. Patient emotional during first attempt, and second attempt patient made no intentional movements when prompted to place her glasses back on her face. Patient not appropriate at this time to see, not participating. Will continue plan of care as appropriate for OT.
--- NOTE | 2021-09-10 12:27 | PM.PNORT ---
Progress Note: A&P Assessment and Plan (1) Closed displaced fracture of left femoral neck: Code(s): S72.002A - Fracture of unspecified part of neck of left femur, initial encounter for closed fracture Status: Acute Assessment and Plan: POD 2 IMPROVING . SHE IS MORE ALERT TODAY BUT STILL HAVING SOME WEAKNESS TO HER LEFT UPPER EXTREMITY. SHE IS FOLLOWING ALL COMMANDS PRETTY WELL. SHE CAN CONTINUE PT SHE TOLERATES. SHE WILL NEED SNF VS REHAB PLACEMENT. I WILL SEE HER IN 6 WEEKS IN MY OFFICE Subjective Subjective Date/Time Seen: 09/10/21 12:27 POD 2 IMPROVING. SHE IS MORE ALERT TODAY. NO CALF PAIN Exam Extrem: Other: VSS AFEBRILE DRESSING DRY NV INTACT CALF SOFT NON TENDER NEG HOMANS SIGN Objective Data Vital Signs Vital Signs: Vital Signs - 24 hr 09/09/21 13:56 09/09/21 17:56 09/09/21 21:38 Temperature 36.7 C 37.7 C H 37.2 C Pulse Rate 80 82 80 Respiratory Rate 20 22 H 20 Blood Pressure 129/50 L 127/53 L 114/55 L Pulse Oximetry 95 98 09/10/21 01:26 09/10/21 06:54 09/10/21 11:06 Temperature 37.2 C 36.3 C L Pulse Rate 84 83 83 Respiratory Rate 18 21 H Blood Pressure 139/69 150/68 H Pulse Oximetry 96 100 Intake/Output Intake/Output: Intake & Output 09/07/21 09/08/21 09/09/21 09/10/21 23:59 23:59 23:59 23:59 Intake Total 680 1540 1440 1050 Output Total 375 530 525 400 Balance 305 1010 915 650 Meds/Results Medications: Active Medications Generic Name Dose Route Start Last Admin Trade Name Freq PRN Reason Stop Dose Admin Acetaminophen 1,000 mg 09/10/21 01:01 09/10/21 11:08 Acetaminophen 500 Mg Tablet PO 1,000 mg Q6H PRN Administration Mild Pain (1-3) or Fever Hydrocodone Bitart/Acetaminophen 1 tab 09/08/21 16:11 09/09/21 06:01 Hydrocodone/Acetaminophen (*Crx) 5-325 Mg Tablet PO 1 tab Q3H PRN Administration Pain Rated 4-6 Aspirin 81 mg 09/09/21 09:00 09/10/21 11:02 Aspirin 81 Mg Enteric Tablet PO 81 mg DAILY NUZHAT Administration Atorvastatin Calcium 40 mg 09/07/21 21:00 09/09/21 20:31 Atorvastatin 40 Mg Tablet PO 40 mg HS NUZHAT Administration Clopidogrel Bisulfate 75 mg 09/09/21 09:00 09/10/21 11:02 Clopidogrel Bisulfate 75 Mg Tablet PO 75 mg DAILY NUZHAT Administration Dextrose 12.5 gm 09/07/21 04:27 Dextrose 50% 25 Gm/50 Ml Syringe IV PUSH PRN PRN Hypoglycemia Protocol Diazepam 5 mg 09/07/21 12:20 09/08/21 23:17 Diazepam (*Crx) 5 Mg Tablet PO 5 mg BID PRN Administration Anxiety Donepezil HCl 10 mg 09/07/21 21:00 09/09/21 20:31 Donepezil Hcl 10 Mg Tablet PO 10 mg QHS NUZHAT Administration Duloxetine HCl 40 mg 09/07/21 09:00 09/10/21 11:02 Duloxetine Hcl 20 Mg Capsule.Dr PO 40 mg Q12HR NUZHAT Administration Escitalopram Oxalate 20 mg 09/07/21 09:00 09/10/21 11:02 Escitalopram Oxalate 10 Mg Tablet PO 20 mg DAILY NUZHAT Administration Famotidine 20 mg 09/07/21 09:00 09/10/21 11:04 Famotidine 20 Mg Tablet PO 20 mg Q12HR NUZHAT Administration Fluticasone Propionate 2 spray 09/07/21 09:00 09/10/21 11:04 Fluticasone Propionate 0.05% Na Spr 16 Gm Btl (*Bkc) NASAL 2 spray DAILY NUZHAT Administration Gabapentin 300 mg 09/07/21 09:00 09/10/21 11:04 Gabapentin 300 Mg Capsule PO 300 mg TID NUZHAT Administration Glimepiride 2 mg 09/09/21 08:00 09/10/21 11:02 Glimepiride 2 Mg Tablet PO 2 mg DAILY@0800 NUZHAT Administration Glucagon 1 mg 09/07/21 04:27 Glucagon For Inj 1 Mg Vial IM PRN PRN Hypoglycemia Protocol Glucose 15 gm 09/07/21 04:27 Glucose Oral Gel 15 Gm Of Glucse In 37.5 Gm Tube PO PRN PRN Hypoglycemia Protocol Heparin Sodium (Porcine) 5,000 units 09/08/21 21:00 09/10/21 11:04 Heparin Sodium 5,000 Units/Ml Vial SUB-Q 5,000 units Q12HR NUZHAT Administration Hydroxyzine Pamoate 25 mg 09/07/21 12:15 09/08/21 21:03 Hydroxyzine Pamoate 25 Mg Capsule PO
[2021-09-10 16:44] LABS: Glucose Point of Care 131 mg/dl (65-105)
[2021-09-10 18:46] LABS: Hematocrit 22.5 % (37.0-47.0)
[2021-09-10 18:52] LABS: Hemoglobin 6.8 g/dL (12.0-15.0)
--- NOTE | 2021-09-10 20:27 | PC.NURSE ---
pt transferred via bed for CT of lleft extremity a this time
[2021-09-10] MEDS: MORPHINE SULFATE (*CRX) 4 MG/ML INJ IV PUSH (21:31)
[2021-09-10] MEDS: ATORVASTATIN 40 MG TABLET PO (21:37)
[2021-09-10] MEDS: DONEPEZIL HCL 10 MG TABLET PO (21:37)
[2021-09-10 23:21] LABS: Glucose Point of Care 127 mg/dl (65-105)
[2021-09-11] VITALS (7 sets, daily range): BP systolic 132–150; BP diastolic 51–69; PULSE 69–82; RESP 14–20; TEMP 35.7–37.8; O2SAT 91–100
[2021-09-11] MEDS: LEVOTHYROXINE SODIUM 125 MCG TABLET PO (06:40)
--- NOTE | 2021-09-11 08:04 | PM.IMPN ---
Progress Note: A&P Assessment and Plan (1) Closed displaced fracture of left femoral neck: Code(s): S72.002A - Fracture of unspecified part of neck of left femur, initial encounter for closed fracture Status: Acute Assessment and Plan: POD#3 s/p left hip hemiarthroplasty with bipolar prosthesis -Management per Orthopedic Surgery (2) Anemia: Code(s): D64.9 - Anemia, unspecified Status: Acute Assessment and Plan: CT abdomen pelvis and left lower extremity did not show bleeding. H/H stable this morning. -Would resume ASA, plavix and heparin prophylaxis on 09/12/21 (3) Type 2 diabetes mellitus with hyperglycemia: Qualifiers: Diabetes mellitus skilled nursing insulin use: without skilled nursing use Qualified Code(s): E11.65 - Type 2 diabetes mellitus with hyperglycemia Code(s): E11.65 - Type 2 diabetes mellitus with hyperglycemia Status: Acute Assessment and Plan: According to outpatient notes the patient's last hemoglobin A1c a few months ago was 6.1%. BG 148-226. -Would restart home medications except for the glimepiride and do SSI for now -POC glucose checks (4) CAD (coronary artery disease), autologous vein bypass graft: Code(s): I25.810 - Atherosclerosis of coronary artery bypass graft(s) without angina pectoris Status: Acute Assessment and Plan: Continue bb, ASA, statin. (5) Weakness: Code(s): R53.1 - Weakness Status: Acute Assessment and Plan: Physical therapist called concerned the patient was neglecting her left side and had left sided facial droop. By the time, I made it to see the patient nursing and physical therapy reported the patient was moving the left side well and had no facial droop. Give hx of stroke with residual right sided weakness CT head was orderd. CT head showed no acute intracranial findings and the patient had no new deficits on my exam. (6) Weakness of neck: Code(s): M53.82 - Other specified dorsopathies, cervical region Status: Acute Assessment and Plan: Patient has no pain with passive extension of the neck. She has been sitting with it flexed this morning and says she cannot lift it. -XR neck Additional Plan Subjective Date/time seen: 09/11/21 08:04 Patient says she has pain in her hip. Patient says she cannot lift her head up or straighten her neck. Patient denies having neck pain. Review of Systems Musculoskeletal: Musculoskeletal: Denies neck pain and Denies stiffness Exam Narrative: GENERAL: NAD, cooperative HEENT: Normocephalic, atraumatic, anicteric, nares clear, oropharynx moist and clear, edentulous NECK: Supple CV: Normal S1, S2, RRR, No MRG RESP: CTAB, Normal work of breathing. EXTREMITIES: Warm and well perfused, no clubbing, cyanosis, or edema. L. hip w/ dressing c/d/i no hematoma or ecchymosis. SKIN: warm, dry and intact. NEURO: A&Ox 2. Chronic right sided weakness from old stroke. . Objective Data Vital Signs Vital Signs: Vital Signs - 24 hr 09/10/21 11:06 09/10/21 15:01 09/10/21 21:20 Temperature 97.5 F L 99.7 F H Pulse Rate 83 64 69 Respiratory Rate 20 21 H Blood Pressure 110/51 L 146/63 H Pulse Oximetry 99 100 Oxygen Delivery Oxygen Flow Rate 09/10/21 20:00 09/11/21 01:30 09/11/21 06:20 Temperature 100.0 F H 98.9 F Pulse Rate 82 71 Respiratory Rate 20 16 Blood Pressure 150/69 H 132/57 L Pulse Oximetry 100 98 97 Oxygen Delivery Nasal Cannula Oxygen Flow Rate 2 Intake/Output Intake/Output: Intake & Output 09/08/21 09/09/21 09/10/21 09/11/21 23:59 23:59 23:59 23:59 Intake Total 1540 1440 1530 Output Total 530 525 750 300 Balance 1010 915 780 -300 Meds/Results Medications: Active Medications Generic Name Dose Route Start Last Admin Trade Name Freq PRN Reason Stop Dose Admin Acetaminophen 1,000 mg 09/10/21 01:01 09/10/21 11:08 Ac
[2021-09-11 08:05] LABS: Glucose Point of Care 63 mg/dl (65-105)
[2021-09-11] MEDS: GLIMEPIRIDE 2 MG TABLET PO (08:29)
[2021-09-11] MEDS: FAMOTIDINE 20 MG TABLET PO ×2 (08:30→21:10)
[2021-09-11] MEDS: FLUTICASONE PROPIONATE 0.05% NA SPR 16 GM BTL (*BKC) 2 SPRAY NASAL (08:30)
[2021-09-11] MEDS: ESCITALOPRAM OXALATE 10 MG TABLET 20 MG PO (08:30)
[2021-09-11] MEDS: DULoxetine HCL 20 MG CAPSULE.DR 40 MG PO ×2 (08:30→21:10)
[2021-09-11] MEDS: SENNA/DOCUSATE SODIUM TABLET 2 TAB PO ×2 (08:30→17:21)
[2021-09-11 08:31] LABS: Basophils Percent Auto 0.2 % (0.2-1.2); Eosinophils Absolute Auto 0.2 K/mm3 (0-0.3); Eosinophils Percent Auto 5.1 % (0-4.4); Hematocrit 23.7 % (37.0-47.0); Hemoglobin 7.1 g/dL (12.0-15.0); Immature Granulocyte Absolute 0.02 K/mm3 (0.00-0.031); Immature Granulocyte Percent A 0.5 % (0-0.5); Mean Corpuscular Hemoglobin 27.3 pg (26-34); Mean Corpuscular Volume 91.2 fl (80-100); Mean Platelet Volume 10.3 fl (7.4-10.4); Monocytes Absolute Auto 0.2 K/mm3 (0.1-0.6); Monocytes Percent Auto 5.8 % (2.6-8.5); Neutrophils Absolute Auto 3.2 K/mm3 (1.3-6.7); Neutrophils Percent Auto 76.4 % (45.5-73.1); Platelet Count Result 153 k/mm3 (150-375); Red Cell Distribution Width 13.8 % (11.5-14.5); White Blood Count 4.2 K/mm3 (4.5-10.0)
[2021-09-11] MEDS: LORATADINE 10 MG TABLET PO (08:31)
[2021-09-11] MEDS: MEMANTINE 10 MG TABLET PO ×2 (08:31→21:10)
[2021-09-11] MEDS: GABAPENTIN 300 MG CAPSULE PO ×3 (08:31→17:21)
[2021-09-11] MEDS: MIRABEGRON 50 MG ER TABLET PO (08:31)
[2021-09-11] MEDS: VENLAFAXINE HCL XR 75 MG CAP.ER.24H 150 MG PO (08:32)
[2021-09-11] MEDS: polyethylene glycoL 3350 17 GM POWD.PACK PO (08:32)
[2021-09-11] MEDS: MIRTAZAPINE 7.5 MG TABLET PO (08:32)
[2021-09-11] MEDS: METOPROLOL SUCCINATE EXT REL 25 MG TABCR PO (08:33)
[2021-09-11 08:41] LABS: Anion Gap 6 mmol/L (8-16); Blood Urea Nitrogen 15 mg/dL (7-17); Calcium 8.8 mg/dL (8.4-10.2); Carbon Dioxide 28 mmol/L (22-30); Chloride 107 mmol/L (98-107); Estimated CRCL calculation 46 ml/min; Estimated Glomerular Filt Rate > 60; Glucose 65 mg/dL (65-110); Sodium 141 mmol/L (137-145)
[2021-09-11] MEDS: HYDROcodone/acetaminophen (*CRX) 5-325 MG TABLET 1 TAB PO (09:09)
[2021-09-11 11:55] LABS: Glucose Point of Care 128 mg/dl (65-105)
[2021-09-11 17:37] LABS: Glucose Point of Care 75 mg/dl (65-105)
[2021-09-11] MEDS: ATORVASTATIN 40 MG TABLET PO (21:10)
[2021-09-11] MEDS: DONEPEZIL HCL 10 MG TABLET PO (21:10)
[2021-09-11] MEDS: MORPHINE SULFATE (*CRX) 4 MG/ML INJ IV PUSH (21:14)
[2021-09-11 22:03] LABS: Glucose Point of Care 138 mg/dl (65-105)
[2021-09-12] MEDS: HYDROcodone/acetaminophen (*CRX) 5-325 MG TABLET 1 TAB PO (02:05)
[2021-09-12 05:03] VITALS: BP 136/59; PULSE 72; RESP 18; TEMP 36.7; O2SAT 92
[2021-09-12] MEDS: LEVOTHYROXINE SODIUM 125 MCG TABLET PO (05:33)
[2021-09-12 05:49] LABS: Basophils Percent Auto 0.5 % (0.2-1.2); Eosinophils Absolute Auto 0.3 K/mm3 (0-0.3); Eosinophils Percent Auto 6.7 % (0-4.4); Hematocrit 24.4 % (37.0-47.0); Hemoglobin 7.3 g/dL (12.0-15.0); Immature Granulocyte Absolute 0.02 K/mm3 (0.00-0.031); Immature Granulocyte Percent A 0.5 % (0-0.5); Lymphocytes Absolute Auto 0.59 K/mm3 (0.9-3.2); Lymphocytes Percent Auto 15.2 % (18.3-44.2); Mean Corpuscular HGB Conc 29.9 g/dl (32-36); Mean Corpuscular Hemoglobin 27.2 pg (26-34); Monocytes Absolute Auto 0.4 K/mm3 (0.1-0.6); Monocytes Percent Auto 10.3 % (2.6-8.5); Neutrophils Absolute Auto 2.6 K/mm3 (1.3-6.7); Neutrophils Percent Auto 66.8 % (45.5-73.1); Platelet Count Result 161 k/mm3 (150-375); Red Blood Count 2.68 M/mm3 (4.2-5.4); Red Cell Distribution Width 14.1 % (11.5-14.5); White Blood Count 3.9 K/mm3 (4.5-10.0)
[2021-09-12 05:59] LABS: Anion Gap 3 mmol/L (8-16); Blood Urea Nitrogen 15 mg/dL (7-17); Calcium 8.4 mg/dL (8.4-10.2); Carbon Dioxide 30 mmol/L (22-30); Chloride 107 mmol/L (98-107); Estimated CRCL calculation 46 ml/min; Estimated Glomerular Filt Rate > 60; Glucose 76 mg/dL (65-110); Potassium 3.8 mmol/L (3.4-5.0); Sodium 140 mmol/L (137-145)
[2021-09-12] MEDS: ACETAMINOPHEN 500 MG TABLET 1000 MG PO (10:32)
[2021-09-12] MEDS: ASPIRIN 81 MG ENTERIC TABLET PO (10:34)
[2021-09-12] MEDS: polyethylene glycoL 3350 17 GM POWD.PACK PO (10:34)
[2021-09-12] MEDS: SENNA/DOCUSATE SODIUM TABLET 2 TAB PO ×2 (10:35→16:09)
[2021-09-12] MEDS: CLOPIDOGREL BISULFATE 75 MG TABLET PO (10:35)
[2021-09-12] MEDS: GLIMEPIRIDE 2 MG TABLET PO (10:35)
[2021-09-12] MEDS: DULoxetine HCL 20 MG CAPSULE.DR 40 MG PO ×2 (10:36→22:51)
[2021-09-12] MEDS: FAMOTIDINE 20 MG TABLET PO ×2 (10:36→22:52)
[2021-09-12] MEDS: ESCITALOPRAM OXALATE 10 MG TABLET 20 MG PO (10:36)
[2021-09-12] MEDS: FLUTICASONE PROPIONATE 0.05% NA SPR 16 GM BTL (*BKC) 2 SPRAY NASAL (10:37)
[2021-09-12] MEDS: GABAPENTIN 300 MG CAPSULE PO ×3 (10:37→16:09)
[2021-09-12] MEDS: HEPARIN SODIUM 5,000 UNITS/ML VIAL 5000 UNITS SUB-Q ×2 (10:37→22:52)
[2021-09-12] MEDS: MEMANTINE 10 MG TABLET PO ×2 (10:38→22:52)
[2021-09-12] MEDS: MIRABEGRON 50 MG ER TABLET PO (10:38)
[2021-09-12] MEDS: LORATADINE 10 MG TABLET PO (10:38)
[2021-09-12] MEDS: MIRTAZAPINE 7.5 MG TABLET PO (10:38)
[2021-09-12] MEDS: VENLAFAXINE HCL XR 75 MG CAP.ER.24H 150 MG PO (10:39)
[2021-09-12 10:40] VITALS: PULSE 75
[2021-09-12] MEDS: METOPROLOL SUCCINATE EXT REL 25 MG TABCR PO (10:40)
[2021-09-12 11:56] LABS: Glucose Point of Care 142 mg/dl (65-105)
[2021-09-12 16:12] VITALS: BP 117/53; PULSE 70; RESP 16; TEMP 36.5; O2SAT 92
--- NOTE | 2021-09-12 16:17 | PM.IMPN ---
Progress Note: A&P Assessment and Plan (1) Closed displaced fracture of left femoral neck: Code(s): S72.002A - Fracture of unspecified part of neck of left femur, initial encounter for closed fracture Status: Acute Assessment and Plan: Patient presents with left hip pain after fall found to have displaced transcervical fracture of the proximal left femur. Orthopedic consulted. Patient is now POD#4 s/p left hip hemiarthroplasty with bipolar prosthesis. Appreciate orthopedic input. -Management per Orthopedic Surgery (2) Anemia: Code(s): D64.9 - Anemia, unspecified Status: Acute Assessment and Plan: Hemoglobin was 10.6 on admission but dropped to 6.8. She did not receive blood transfusion. Hemoglobin has climbed to 7.3. CT abdomen pelvis and left lower extremity did not show bleeding. H/H remaining stable. - Will resume ASA, plavix and heparin prophylaxis (3) Type 2 diabetes mellitus with hyperglycemia: Qualifiers: Diabetes mellitus terminal block assembler insulin use: without terminal block assembler use Qualified Code(s): E11.65 - Type 2 diabetes mellitus with hyperglycemia Code(s): E11.65 - Type 2 diabetes mellitus with hyperglycemia Status: Acute Assessment and Plan: A1c a few months ago was 6.1%. The patient's blood glucose was reviewed on 09/12 Glucose remains well controlled. Continue AccuCheks covering with sliding scale. Hypoglycemia protocol available as needed. Continue current medications. (4) CAD (coronary artery disease), autologous vein bypass graft: Code(s): I25.810 - Atherosclerosis of coronary artery bypass graft(s) without angina pectoris Status: Acute Assessment and Plan: Stable. No CP. Continue Metoprolol and Lipitor. Resume Plavix and aspirin. (5) Weakness: Code(s): R53.1 - Weakness Status: Acute Assessment and Plan: Physical therapist called concerned the patient was neglecting her left side and had left sided facial droop. By the time, the provider made it to see the patient, nursing and physical therapy reported the patient was moving the left side well and had no facial droop. Give hx of stroke with residual right sided weakness CT head was ordered. CT head showed no acute intracranial findings and the patient had no new deficits on my exam. Continue Lipitor. Resume Plavix and aspirin (6) Weakness of neck: Code(s): M53.82 - Other specified dorsopathies, cervical region Status: Acute Assessment and Plan: Patient with neck weakness. XR showing Grade 2 anterolisthesis of C3 on C4. Multilevel grade 1 listheses. Multilevel severe degenerative disc disease and facet arthropathy. Continue supportive care. (7) Dementia: Code(s): F03.90 - Unspecified dementia without behavioral disturbance Status: Acute Assessment and Plan: patient alert but confused. Continue Aricept and Namenda. She may have behavioral disorder since on Remeron as well. Continue to monitor. Plan DVT prophylaxis: Heparin Code status: DNR Diet: Diabetic Subjective Date/time seen: 09/12/21 16:17 Interval history: 70yo female with CAD, CVA, HTN, dementia, depression, hypothyroidism, GERD and urge urinary incontinence, admitted for hip fracture. Assuming care. Chart reviewed. Patient was able get up to a chair today. She is alert but confused. She does complain of left hip pain. She denies chest pain or shortness of breath Review of Systems Review of Systems: ROS unobtainable: Yes unobtainable due to mental status Exam Narrative: AF 97.7 117/53 70 16 92% ra Gen - NARD sitting up in a recliner Chest - clear anteriorly, nml RR CV - RRR S1/S2 Abd - Soft, NT/ND, Positive BS Ext - left hip dressing clean and dry (only partially visualized). no pedal edema Neuro - Alert but confused. Psych - Nml mood and affect Skin - Warm and dry Objective Data Vital Signs Vital S
[2021-09-12 16:51] LABS: Glucose Point of Care 157 mg/dl (65-105)
[2021-09-12 21:12] VITALS: BP 156/65; PULSE 72; RESP 18; TEMP 36.6; O2SAT 95
[2021-09-12 22:49] LABS: Glucose Point of Care 134 mg/dl (65-105)
[2021-09-12] MEDS: ATORVASTATIN 40 MG TABLET PO (22:52)
[2021-09-12] MEDS: DONEPEZIL HCL 10 MG TABLET PO (22:52)
[2021-09-13 05:39] VITALS: BP 150/72; PULSE 77; RESP 18; TEMP 36.6; O2SAT 96
[2021-09-13 05:46] LABS: Hematocrit 27.1 % (37.0-47.0); Hemoglobin 8.2 g/dL (12.0-15.0); Mean Corpuscular HGB Conc 30.3 g/dl (32-36); Mean Corpuscular Hemoglobin 27.1 pg (26-34); Mean Corpuscular Volume 89.4 fl (80-100); Mean Platelet Volume 9.9 fl (7.4-10.4); Platelet Count Result 206 k/mm3 (150-375); Red Blood Count 3.03 M/mm3 (4.2-5.4); Red Cell Distribution Width 13.8 % (11.5-14.5); White Blood Count 5.3 K/mm3 (4.5-10.0)
[2021-09-13 06:00] LABS: Anion Gap 7 mmol/L (8-16); Blood Urea Nitrogen 13 mg/dL (7-17); Calcium 8.5 mg/dL (8.4-10.2); Carbon Dioxide 29 mmol/L (22-30); Chloride 103 mmol/L (98-107); Estimated CRCL calculation 52 ml/min; Estimated Glomerular Filt Rate > 60; Glucose 114 mg/dL (65-110); Potassium 3.8 mmol/L (3.4-5.0); Sodium 139 mmol/L (137-145)
[2021-09-13] MEDS: LEVOTHYROXINE SODIUM 125 MCG TABLET PO (06:15)
[2021-09-13 07:46] LABS: Glucose Point of Care 97 mg/dl (65-105)
[2021-09-13] MEDS: polyethylene glycoL 3350 17 GM POWD.PACK PO (08:40)
[2021-09-13] MEDS: CLOPIDOGREL BISULFATE 75 MG TABLET PO (08:41)
[2021-09-13] MEDS: GLIMEPIRIDE 2 MG TABLET PO (08:41)
[2021-09-13] MEDS: ESCITALOPRAM OXALATE 10 MG TABLET 20 MG PO (08:41)
[2021-09-13] MEDS: DULoxetine HCL 20 MG CAPSULE.DR 40 MG PO ×2 (08:41→21:21)
[2021-09-13] MEDS: SENNA/DOCUSATE SODIUM TABLET 2 TAB PO ×2 (08:41→16:56)
[2021-09-13] MEDS: ASPIRIN 81 MG ENTERIC TABLET PO (08:41)
[2021-09-13] MEDS: GABAPENTIN 300 MG CAPSULE PO ×3 (08:41→16:56)
[2021-09-13] MEDS: MEMANTINE 10 MG TABLET PO ×2 (08:41→21:22)
[2021-09-13] MEDS: VENLAFAXINE HCL XR 75 MG CAP.ER.24H 150 MG PO (08:41)
[2021-09-13] MEDS: MIRTAZAPINE 7.5 MG TABLET PO (08:41)
[2021-09-13 08:42] VITALS: PULSE 77
[2021-09-13] MEDS: FLUTICASONE PROPIONATE 0.05% NA SPR 16 GM BTL (*BKC) 2 SPRAY NASAL (08:42)
[2021-09-13] MEDS: LORATADINE 10 MG TABLET PO (08:42)
[2021-09-13] MEDS: MIRABEGRON 50 MG ER TABLET PO (08:42)
[2021-09-13] MEDS: HEPARIN SODIUM 5,000 UNITS/ML VIAL 5000 UNITS SUB-Q ×2 (08:42→21:21)
[2021-09-13] MEDS: FAMOTIDINE 20 MG TABLET PO ×2 (08:42→21:21)
[2021-09-13] MEDS: METOPROLOL SUCCINATE EXT REL 25 MG TABCR PO (08:42)
[2021-09-13 11:46] LABS: Glucose Point of Care 105 mg/dl (65-105)
[2021-09-13 13:31] VITALS: BMI 10.0
--- NOTE | 2021-09-13 13:43 | PM.DS ---
DS: Admitting Diagnosis Discharge Date 09/13/21 Admitting Diagnosis Hip fracture DS: Discharge Diagnosis Discharge Diagnosis (1) Closed displaced fracture of left femoral neck: Code(s): S72.002A - Fracture of unspecified part of neck of left femur, initial encounter for closed fracture Status: Acute (2) Anemia: Code(s): D64.9 - Anemia, unspecified Status: Acute (3) Type 2 diabetes mellitus with hyperglycemia: Qualifiers: Diabetes mellitus snf insulin use: without snf use Qualified Code(s): E11.65 - Type 2 diabetes mellitus with hyperglycemia Code(s): E11.65 - Type 2 diabetes mellitus with hyperglycemia Status: Acute (4) CAD (coronary artery disease), autologous vein bypass graft: Code(s): I25.810 - Atherosclerosis of coronary artery bypass graft(s) without angina pectoris Status: Acute (5) Weakness: Code(s): R53.1 - Weakness Status: Acute (6) Weakness of neck: Code(s): M53.82 - Other specified dorsopathies, cervical region Status: Acute (7) Dementia: Code(s): F03.90 - Unspecified dementia without behavioral disturbance Status: Acute DS: Summary Hospital Course Reason for hospitalization: 70yo female with CAD, CVA, HTN, dementia, depression, hypothyroidism, GERD and urge urinary incontinence, admitted for hip fracture. Please see H&P for details. Hospital Course: Patient presents with left hip pain after fall found to have displaced transcervical fracture of the proximal left femur.? Orthopedic was consulted.? Patient underwent left hip hemiarthroplasty with bipolar prosthesis. Appreciate orthopedic input. She worked with PT/OT. Hemoglobin was 10.6 on admission but dropped to 6.8.? She did not receive blood transfusion.? Hemoglobin has climbed to 7.3. CT abdomen pelvis and left lower extremity did not show source of blood loss.? A1c a few months ago was 6.1%. The patient's blood glucose was monitored closely with AccuCheks covering with sliding scale.? Hypoglycemia protocol was available as needed.?Patient has a hx of CAD but no chest pain. We continued Metoprolol, Lipitor, Plavix and aspirin. Physical therapist called concerning the patient was neglecting her left side and had left sided facial droop.? By the time the provider saw the patient, the symptoms had resolved.?CT head showed no acute intracranial findings and the patient had no recurrent symptoms.?We continued Lipitor, Plavix and aspirin. Patient with neck weakness. XR showing?Grade 2 anterolisthesis of C3 on C4. Multilevel grade 1 listheses. Multilevel severe degenerative disc disease and facet arthropathy. Treated with supportive care. Daughter stated that the neck weakness is chronic but seems to have worsened. Patient is alert but confused.? We continued Aricept and Namenda.? She may have behavioral disorder since on Remeron as well.?She overall did well and was able to be discharged to skilled facility on 09/13/21 Status at Discharge Cognitive/behavioral status at discharge: Stable. Time Spent with Patient Time attestation: Total time spent providing and/or coordinating discharge services: 34 minutes Specific discharge activities: Discussed with daughter who was requesting another facility but unable to arrange. Exam Narrative: AF 97.9 150/72 77 18 96% ra Gen - NARD lying flat Chest - clear anteriorly, nml RR CV - RRR S1/S2 Abd - Soft, NT/ND, Positive BS Ext - left hip dressing clean and dry. no pedal edema Neuro - Alert but confused. Psych - Nml mood and affect Skin - Warm and dry DS: Data Data Completed and Pending Labs on day of discharge: Labs from last 24 hours 09/13/21 09/13/21 09/13/21 11:34 07:40 05:33 WBC RBC Hgb Hct MCV MCH MCHC RDW Plt Count MPV Sodium 139 Potassium 3.8 Chloride 103 Carbon Dioxide 29 Anion Gap 7 L BUN 13 Creatinine 0.70 Estim Cr
[2021-09-13] MEDS: HYDROcodone/acetaminophen (*CRX) 5-325 MG TABLET 1 TAB PO ×2 (13:56→19:15)
[2021-09-13 14:50] VITALS: BP 125/58; PULSE 73; RESP 18; TEMP 36.8; O2SAT 93
[2021-09-13 16:40] LABS: Glucose Point of Care 179 mg/dl (65-105)
[2021-09-13 17:24] LABS: EDCOVIDSCREEN Negative (Negative)
[2021-09-13 19:13] VITALS: BP 141/60; PULSE 83; RESP 20; TEMP 36.7; O2SAT 96
[2021-09-13 20:00] VITALS: PULSE 83; RESP 20; O2SAT 96
[2021-09-13 20:59] LABS: Glucose Point of Care 217 mg/dl (65-105)
[2021-09-13] MEDS: DONEPEZIL HCL 10 MG TABLET PO (21:21)
[2021-09-13] MEDS: ATORVASTATIN 40 MG TABLET PO (21:21)
[2021-09-14 04:50] VITALS: BP 135/61; PULSE 78; RESP 20; TEMP 36.7; O2SAT 95
== END 2021-09-14 06:00 | DRG 522 ==
LOC: ANHED 03:08 → ANH3MED 03:11
PROVIDERS: Family Medicine; Orthopaedic Surgery; Physician Assistant; Student in an Organized Health Care Education/Training Program; Admitting Provider Internal Medicine; Emergency Provider General Practice; PCP Family Medicine; Visit Provider Internal Medicine
PROC: 0SRS01Z Replacement of Left Hip Joint, Femoral Surface with Metal Synthetic Substitute, Open Approach (ICD-10-PCS; CPT 27125; principal; 2021-09-08 12:00)
DX: S72.032A Displaced midcervical fracture of left femur, initial encounter for closed fracture (principal); I25.810 Atherosclerosis of coronary artery bypass graft(s) without angina pectoris; I69.351 Hemiplegia and hemiparesis following cerebral infarction affecting right dominant side; R41.4 Neurologic neglect syndrome; R29.810 Facial weakness; S00.03XA Contusion of scalp, initial encounter; W19.XXXA Unspecified fall, initial encounter; Z20.822 Contact with and (suspected) exposure to COVID-19; E11.65 Type 2 diabetes mellitus with hyperglycemia; M53.82 Other specified dorsopathies, cervical region; M50.30 Other cervical disc degeneration, unspecified cervical region; D64.9 Anemia, unspecified; F03.90 Unspecified dementia, unspecified severity, without behavioral disturbance, psychotic disturbance, mood disturbance, and anxiety; K21.9 Gastro-esophageal reflux disease without esophagitis; E03.9 Hypothyroidism, unspecified; N39.41 Urge incontinence; H40.9 Unspecified glaucoma; I10 Essential (primary) hypertension; E78.5 Hyperlipidemia, unspecified; E11.42 Type 2 diabetes mellitus with diabetic polyneuropathy; Z85.810 Personal history of malignant neoplasm of tongue; Z95.1 Presence of aortocoronary bypass graft; Z87.891 Personal history of nicotine dependence
CPT/HCPCS: 36415; 70450; 71045; 72040; 72100; 73030; 73502; 73700; 74176; 80048; 82948; 85014; 85018; 85025; 85027; 85610; 85730; 86850; 86900; 86901; 87426; 93005; 96365; 96375; 96376; 97110; 97162; 97165; 97530; 97535; 99285; A9270; C1776; C9803; G0378; J0131; J0171; J0690; J1170; J1644; J1815; J1885; J2270; J2370; J2405; J2704; J2795; J3010; J7030; J7120; U0003; U0005

== ENCOUNTER 2022-12-27 11:47 | Inpatient (IN) | payer MEDICARE, MEDICAID, SELFPAY ==
[2022-12-27] VITALS (38 sets, daily range): BP systolic 98–136; BP diastolic 51–81; PULSE 83–153; RESP 15–30; TEMP 36.8–37.4; O2SAT 90–100; BMI 24.2
--- NOTE | ~2022-12-27 | XR_ITS ---
EXAMINATION: XR barium swallow modified DATE: 01/04/2023 13:52 INDICATION: Dysphagia. TECHNIQUE: The patient was given barium-containing material of multiple consistencies to swallow by t alok speech pathologist while I performed fluoroscopy. Dose-area product was 0.705 Gy-cm2. 1.4 minutes fluoroscopy time FINDINGS: Oral Stage: Within functional limits Pharyngeal Phase: Reduced laryngeal elevation, reduced laryngeal adduction Reduced tongue base retraction Reduced pharyngeal squeeze Vallecular and pyriform sinus residue Moderate to severe laryngeal penetration, aspiration Cervical/Esophageal Stage: Within functional limits IMPRESSION: Modified esophagram findings as above. Please refer to the speech [facility] report [facility]. Reviewed, dictated and finalized at [facility]. Reviewed, dictated and finalized at location A. ARTS TEACHER IMPRESSION: Modified esophagram findings as above. Please refer to the speech t herapy report for specific recommendations.
--- NOTE | ~2022-12-27 | CT_ITS ---
EXAMINATION: CT soft tissue neck wo con DATE: 01/03/2023 15:09 INDICATION: TECHNIQUE: Computed tomography (CT) of the neck was performed with 75 mL Omnipaque-350 intravenous co ntrast. The dose-length product was 428.37 mGy-cm. COMPARISON: None FINDINGS: Exam limited by noncontrast technique and motion artifact. Postsurgical change in the right neck. Thyroid not confidently visualized, may be atrophic or surgic ally absent. The parotid glands are symmetric. There is no cervical lymphadenopathy. Suggestion o f soft tissue mass at the level of, and possibly encasing, the right carotid bifurcation. Mediastina l lymphadenopathy. The airway is unremarkable. Normal left parapharyngeal space, less well-define d right parapharyngeal space, likely postsurgical/post therapeutic. Prevertebral and pre-glottic fat planes are preserved. Extensive arterial atherosclerotic calcification. Bilateral lens replacement s, otherwise unremarkable Visualized sinuses and mastoid air cells are well aerated. Senescent and paraseptal emphysematous changes in the lung apices. Dependent subsegmental opacities. There is cer vical spondylosis. IMPRESSION: Subsegmental bilateral lung opacities may represent edema or infection. Mediastinal lymphadenopathy. Suggestion of soft tissue mass level of the right parotid bifurcation. May represent chronic post vern gical change, post therapeutic change, or recurrent disease, however this examination is limited with respect to that determination. Recommend repeat examination with contrast following appropriate logan edication or with scheduled dialysis, depending on renal status. Also recommend comparison to outside postoperative and follow-up studies. Reviewed, dictated and finalized at location K. R RESOURCE ASSESSOR IMPRESSION: Subsegmental bilateral lung opacities may represent edema or infection. Mediastinal lymphadenopathy. Suggestion of soft tissue mass level of the right parotid bifurcation. May repr esent chronic post surgical change, post therapeutic change, or recurrent disea se, however this examination is limited with respect to that determination. Rec ommend repeat examination with contrast following appropriate premedication or with scheduled dialysis, depending on renal status. Also recommend comparison t o outside postoperative and follow-up studies.
--- NOTE | ~2022-12-27 | XR_ITS ---
EXAMINATION: XR chest 2V DATE: 12/27/2022 12:26 INDICATION: Altered mental status. TECHNIQUE: Frontal and lateral views of the chest were obtained. COMPARISON: Chest single view 09/07/2021 FINDINGS: There is chronic mild elevation of right hemidiaphragm. No pneumonia, pleural effusion, or pneumothorax. The heart size is normal. There is a moderate-sized hiatal hernia. Median sternotomy wi res, mediastinal plates and screws, and mediastinal surgical clips are seen, likely from prior mishra ry artery bypass grafting. IMPRESSION: 1. Moderate-sized hiatal hernia. Reviewed, dictated and finalized at location A. ER COMPLIANCE REPRESENTATIVE
--- NOTE | 2022-12-27 12:04 | ECG_ITS ---
Measurements Intervals [place] Rate: 152 P: -78 [place]: 113 QRS: 24 QRSD: 88 T: 1 QT: 308 QTc: 490 Interpretive Statements ATRIAL FLUTTER/TACHYCARDIA WITH RAPID VENTRICULAR RESPONSE NONSPECIFIC ST & T-WAVE ABNORMALITY- DIFFUSE LEADS BASELINE ARTIFACT- II, III, AVF ABNORMAL ECG COMPARED TO ECG 09/07/2021 01:47:05 ATRIAL FLUTTER/TACHYCARDIA NOW PRESENT Electronically Signed On 12-27-2022 12:52:15 DERRICK CAR OPERATOR by Isaias Mercer D.O.
--- NOTE | 2022-12-27 12:18 | ED.GENADULT ---
HPI - General Adult General Chief complaint: Weakness Stated complaint: gen. weakness Time Seen by Provider: 12/27/22 12:16 History of Present Illness HPI narrative: Patient is 72-year-old female who presents to the emergency department this morning from her extended care facility due to generalized weakness. The patient's daughter is currently present at bedside and states that patient has not been eating or drinking fluids due to mouth sores and pain with swallowing. 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 Patient has an upcoming appointment with ENT, she has not seen her oncologist yet since that the lesions have returned 2 weeks ago as she was told that they wanted her to be evaluated by an ENT 1st. Her appointment is sometime in the next 2 weeks. Patient Is only complaining of throat pain but is denying any additional symptoms including any chest pain, shortness of breath, nausea, vomiting, abdominal pain, dysuria, hematuria, constipation, diarrhea, melena, hematochezia, fevers or chills. He also denies any headaches, dizziness, lightheadedness, blurry visions, dizziness, focal weakness, numbness and or tingling. There are no other modifying, alleviating, or precipitating factors at this time. Related Data Home Medications Medication Instructions Recorded Confirmed gabapentin 100 mg capsule 300 mg PO TID 03/06/19 10/22/21 memantine 10 mg tablet (Namenda) 10 mg PO BID 03/06/19 10/22/21 mirabegron 50 mg tablet,extended 50 mg PO DAILY 03/06/19 10/22/21 release 24 hr (Myrbetriq) venlafaxine 150 mg 150 mg PO DAILY 03/06/19 10/22/21 capsule,extended release 24 hr clopidogrel 75 mg tablet 75 mg PO DAILY 05/12/21 10/22/21 donepezil 10 mg tablet 10 mg PO QHS 05/12/21 10/22/21 duloxetine 40 mg capsule,delayed 40 mg PO BID 05/12/21 10/22/21 release fluticasone propionate 50 2 spray intranasal DAILY 05/12/21 10/22/21 mcg/actuation nasal spray,suspension (Flonase Allergy Relief) liraglutide 0.6 mg/0.1 mL (18 mg/3 0.6 mg subcut DAILY 05/12/21 10/22/21 mL) subcutaneous pen injector (MarketGid 2-Yann) naproxen 250 mg tablet 220 mg PO BID PRN Pain 05/12/21 10/22/21 nitroglycerin 0.4 mg sublingual 0.4 mg sublingual Q5M PRN Chest 05/12/21 10/22/21 tablet Pain polyethylene glycol 3350 17 17 g PO DAILY PRN constipation 05/12/21 10/22/21 gram/dose oral powder sitagliptin phosphate 100 mg 100 mg PO DAILY 05/12/21 10/22/21 tablet (Januvia) zonisamide 100 mg capsule 100 mg PO DAILY PRN Dizziness 05/12/21 10/22/21 escitalopram oxalate 20 mg tablet 20 mg PO DAILY 06/16/21 10/22/21 famotidine 20 mg tablet 20 mg PO BID 06/16/21 10/22/21 glimepiride 2 mg tablet 2 mg PO DAILY 06/16/21 10/22/21 levothyroxine 150 mcg tablet 125 mcg PO DAILY 06/16/21 10/22/21 atorvastatin 40 mg tablet 40 mg PO HS 09/07/21 10/22/21 clobetasol 0.05 % scalp solution 1 applic topical BID 09/07/21 10/22/21 diclofenac sodium 1 % topical gel 2 g topical QID 09/07/21 10/22/21 loratadine 10 mg tablet 10 mg PO DAILY 09/07/21 10/22/21 metoprolol succinate 25 mg 25 mg PO DAILY 09/07/21 10/22/21 tablet,extended release 24 hr mirtazapine 7.5 mg tablet 7.5 mg PO DAILY 09/07/21 10/22/21 [id number] 3.5 3.5 drp otic (ear) QID 09/07/21 10/22/21 mg-10,000 unit/mL-1 % ear drops,susp Allergies Allergy/AdvReac Type Severity Reaction Status Date / Time Iodinated Contrast Media Allergy Severe Dyspnea / Verified 12/27/22 12:40 SOB codeine Allergy Intermediate Unknown Verified 12/27/22 12:40 Sulfa (Sulfonamide Allergy Intermediate unknown Verified 12/27/22 12:40 Antibiotics) Penicillins Allergy Unknown Hives Verified 12/27/22 12:40 Review of Systems Review of Systems: All systems are reviewed and are negative unless stated otherwise in the HPI. [facility]
[2022-12-27 12:24] LABS: Basophils Percent Auto 0.4 % (0.2-1.2); Eosinophils Percent Auto 0.4 % (0-4.4); Hemoglobin 8.1 g/dL (12.0-15.0); Immature Granulocyte Absolute 0.06 K/mm3 (0.00-0.031); Immature Granulocyte Percent A 1.1 % (0-0.5); Lymphocytes Absolute Auto 0.57 K/mm3 (0.9-3.2); Lymphocytes Percent Auto 10.7 % (18.3-44.2); Mean Corpuscular HGB Conc 28.9 g/dl (32-36); Mean Corpuscular Hemoglobin 26.2 pg (26-34); Mean Corpuscular Volume 90.6 fl (80-100); Mean Platelet Volume 10.6 fl (7.4-10.4); Monocytes Absolute Auto 0.8 K/mm3 (0.1-0.6); Monocytes Percent Auto 14.4 % (2.6-8.5); Neutrophils Absolute Auto 3.9 K/mm3 (1.3-6.7); Platelet Count Result 170 k/mm3 (150-375); Red Blood Count 3.09 M/mm3 (4.2-5.4); Red Cell Distribution Width 17.7 % (11.5-14.5); White Blood Count 5.3 K/mm3 (4.5-10.0)
[2022-12-27] MEDS: SODIUM CHLORIDE 0.9% IV 500 ML 100 ML IV CONT (12:25)
[2022-12-27 12:33] LABS: Alanine Aminotransferase 25 U/L (6-35); Albumin Level 3.1 g/dL (3.5-5.1); Alkaline Phosphatase 111 U/L (38-126); Anion Gap 10 mmol/L (8-16); Aspartate Amino Transferase 34 U/L (14-36); Bilirubin,Total 0.6 mg/dL (0.2-1.3); Blood Urea Nitrogen 20 mg/dL (7-17); Carbon Dioxide 23 mmol/L (22-30); Chloride 106 mmol/L (98-107); Estimated CRCL calculation 40 ml/min; Estimated Glomerular Filt Rate > 60; Glucose 158 mg/dL (65-110); Potassium 4.4 mmol/L (3.4-5.0); Sodium 139 mmol/L (137-145)
[2022-12-27 12:48] LABS: Appearance Urine Cloudy (Clear); Bacteria Urine Rare /hpf; Bilirubin Urine Negative (Negative); Blood Urine Negative (Negative); Color Urine Dark Yellow (Yellow); Glucose Urine UA Negative (Negative); Ketones Urine Trace mg/dL (Negative); Leukocyte Esterase Ur 1+ LEU/UL (Negative); Nitrate Urine Negative (Negative); Non Pathogenic Casts 0-2; Protein Urine 1+ mg/dL (Negative); RBC Urine 0-2 /hpf (0-2); Specific Grav Ur 1.025 (1.001-1.035); Squamous Epithelial Cell Urine Moderate /hpf (Few); WBC Urine 21-50 /hpf; pH Urine 5.5 (5.0-9.0)
--- NOTE | 2022-12-27 12:50 | PC.NURSE ---
family arrived in room. states that the last couple weeks she started having sores in her mouth. she is f/u with ENT regarding this. family states that she has been declining in health since this as she is having trouble and pain eating
[2022-12-27 13:03] LABS: Add Urine Microscopic? YES
[2022-12-27] MEDS: levoFLOXacin 750 MG/D5W 150 ML 750 MG/150 ML BAG 100 MG IVPB (13:49)
[2022-12-27] MEDS: dilTIAZem 100 MG/100 ML 100 MG/100 ML BAG IV CONT (15:07)
--- NOTE | 2022-12-27 15:11 | PC.NURSE ---
HR ranging from 80-150s. initiate cardizem gtt and hold on IVP at this time per provider
[2022-12-27 16:08] LABS: Influenza A QL RT-PCR Negative (Negative); Influenza B QL RT-PCR Negative (Negative); RSV RNA, RT-PCR Negative (Negative); SARS-CoV-2 RNA PCR Negative (Negative)
[2022-12-27] MEDS: SODIUM CHLORIDE 0.9% IV 1,000 ML 100 ML (19:10)
--- NOTE | 2022-12-27 19:57 | ADMGEN ---
This patient, Shoshana Mon, was admitted to IMU Room 201-01. Patient/family oriented to hospital policies and general routines including ID bracelet, bed and alarms, visiting hours, pain management, procedures, bathroom and other care routines, personal items, smoking policy, room service/diet, and visiting hours. Information on how to activate the Rapid Response Team has been discussed. Patient/Family are encouraged to report perceived risks to care and to ask questions if they do not understand what they are told or what they should do.
[2022-12-28] VITALS (26 sets, daily range): BP systolic 90–130; BP diastolic 48–68; PULSE 69–133; RESP 16–22; TEMP 36.6–38; O2SAT 91–98; BMI 24.5
--- NOTE | 2022-12-28 00:38 | PM.IMHP ---
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 S HPI obtained through patient interview, ED provider report, and chart review due to patient's current altered mental status. Patient presented here for generalized weakness. Daughter reported that she has not been eating or drinking recently due to pain with swallowing and mouth sores. Patient was treated for squamous cell carcinoma of the tongue in 2001 via resection, chemotherapy, and radiation. There is current concern for recurrence of lesions. Has appointment scheduled with ENT in the next 2 weeks, will schedule with Oncologist after this appointment. The patient is currently endorsing generalized weakness, decreased appetite, body aches, and chills. She denies abdominal pain, dysuria, frequency, hematuria, or urinary hesitancy. No chest pain, shortness a breath, subjective fevers, or palpitations. Patient endorsed sore throat to ED provider. She is currently A/Ox1 with hx of dementia. 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 Claudication CVA (cerebral vascular accident) (02/2019) With residual right-sided weakness Dementia Depression Diabetes Diabetic peripheral neuropathy Glaucoma both eyes Heel ulcer Left heel. HTN (hypertension) Hx of radiation therapy Hx of tongue cancer Hypercalcemia Hyperlipidemia Hypertriglyceridemia Hypothyroidism (acquired) Memory loss Osteoporosis PAD (peripheral artery disease) Postmenopausal Postoperative atrial fibrillation Post coronary artery bypass 08/2020 Type 2 diabetes mellitus with diabetic polyneuropathy, without long-term current use of insulin UTI (urinary tract infection), bacterial Vertigo Surgical History Surgical History History of ankle surgery repair of rt ankle fracture Bilateral ankle fracture [id number] Alf Roland History of cardiac catheterization (09/04/20) Diffuse LAD disease proximal half 60-70% mid 99%, left circ with diffuse disease, RCA with 70%, 3rd portion with 89 8%, distal portion 99%, intra-aortic balloon pump placed and patient was transferred to [facility] History of hip surgery Left hip fracture 2021, by Dr. Parra History of orthopedic surgery bilateral removal of 1st rib Hx of oral surgery partial removal of tongue S/P CABG x 3 (08/2020) [facility] ZAFAR to LAD, saphenous vein graft to obtuse marginal, saphenous vein graft to PDA Status post glaucoma surgery both eyes Family History Family History Father , due to NH at 65 Diabetes mellitus Family history of cardiovascular disease Family history of congestive heart failure Grandparent Diabetes mellitus Family history of glaucoma Sibling Diabetes mellitus Family history of cardiovascular disease Family history of congestive heart failure Daughter Family history of lung disease Daughter , at 46 due to metastatic breast cancer Breast cancer Mother , at 79 due to COPD Family history of chronic obstructive pulmonary disease Other Arthritis Asthma Cerebrovascular accident Depression F
[2022-12-28 01:46] LABS: Lactic Acid Reflex 0.8 mmol/L (0.7-2.0)
[2022-12-28 01:58] LABS: Troponin I < 0.012 ng/mL (0.000-0.034)
[2022-12-28 05:32] LABS: Basophils Percent Auto 0.5 % (0.2-1.2); Eosinophils Percent Auto 0.4 % (0-4.4); Hematocrit 23.6 % (37.0-47.0); Immature Granulocyte Absolute 0.04 K/mm3 (0.00-0.031); Immature Granulocyte Percent A 0.7 % (0-0.5); Lymphocytes Absolute Auto 0.66 K/mm3 (0.9-3.2); Lymphocytes Percent Auto 11.8 % (18.3-44.2); Mean Corpuscular HGB Conc 28.4 g/dl (32-36); Mean Corpuscular Hemoglobin 26.2 pg (26-34); Mean Corpuscular Volume 92.2 fl (80-100); Monocytes Absolute Auto 0.7 K/mm3 (0.1-0.6); Neutrophils Absolute Auto 4.2 K/mm3 (1.3-6.7); Neutrophils Percent Auto 74.6 % (45.5-73.1); Platelet Count Result 172 k/mm3 (150-375); Red Blood Count 2.56 M/mm3 (4.2-5.4); Red Cell Distribution Width 17.8 % (11.5-14.5); White Blood Count 5.6 K/mm3 (4.5-10.0)
[2022-12-28 05:41] LABS: Hemoglobin 6.7 g/dL (12.0-15.0)
[2022-12-28 05:48] LABS: Anion Gap 11 mmol/L (8-16); Blood Urea Nitrogen 15 mg/dL (7-17); Calcium 8.7 mg/dL (8.4-10.2); Carbon Dioxide 23 mmol/L (22-30); Chloride 108 mmol/L (98-107); Estimated CRCL calculation 35 ml/min; Estimated Glomerular Filt Rate > 60; Glucose 104 mg/dL (65-110); Potassium 4.8 mmol/L (3.4-5.0); Sodium 142 mmol/L (137-145)
[2022-12-28 06:07] LABS: Hemoglobin A1C 6.1 % (<5.7)
[2022-12-28 06:15] LABS: Anisocytosis 1+ (NORMAL); Ovalocytes 1+ (NORMAL); Platelet Estimate Adequate (Adequate); Schistocytes None Seen (NORMAL)
[2022-12-28] MEDS: dilTIAZem 100 MG/100 ML 100 MG/100 ML BAG IV CONT (06:41)
--- NOTE | 2022-12-28 08:00 | ECG_ITS ---
Measurements Intervals [place] Rate: 127 P: -86 LA: 127 QRS: 1 QRSD: 86 T: -3 QT: 303 QTc: 441 Interpretive Statements ECTOPIC ATRIAL TACHYCARDIA CONSIDER INFERIOR INFARCT, AGE INDETERMINATE ABNORMAL ECG COMPARED TO ECG 12/27/2022 12:13:59 HEART RATE HAS DECREASED Electronically Signed On 12-28-2022 9:10:48 MOTOR ADJUSTER by Isaias Mercer D.O.
[2022-12-28 08:38] LABS: Glucose Point of Care 96 mg/dl (65-105)
[2022-12-28] MEDS: ENOXAPARIN 40 MG/0.4 ML SYRINGE SUB-Q (09:05)
[2022-12-28] MEDS: GABAPENTIN 300 MG CAPSULE PO (09:06)
[2022-12-28] MEDS: FLUTICASONE PROPIONATE 0.05% NA SPR 16 GM BTL (*BKC) 2 SPRAY NASAL (09:06)
[2022-12-28] MEDS: MIRABEGRON 50 MG ER TABLET PO (09:06)
[2022-12-28] MEDS: FERROUS SULFATE 325 MG TABLET DR BY MOUTH (09:06)
[2022-12-28] MEDS: THERAPEUTIC MULTIVITAMINS/MINERALS TAB (*BKC) 1 TABLET PO (09:06)
[2022-12-28] MEDS: VENLAFAXINE HCL XR 75 MG CAP.ER.24H 225 MG PO (09:06)
[2022-12-28] MEDS: ASPIRIN 81 MG ENTERIC TABLET PO (09:06)
[2022-12-28] MEDS: GLIMEPIRIDE 2 MG TABLET PO (09:06)
[2022-12-28] MEDS: ESCITALOPRAM OXALATE 10 MG TABLET 20 MG PO (09:06)
[2022-12-28] MEDS: ACETAMINOPHEN 325 MG TABLET 650 MG PO (11:58)
[2022-12-28] MEDS: SODIUM CHLORIDE 0.9% IV 250 ML 30 ML IV CONT ×2 (12:28→18:27)
[2022-12-28] MEDS: TUBING, BLOOD PLUM PUMP TUBING 1 EACH XX ×2 (12:28→18:44)
[2022-12-28 12:29] LABS: Glucose Point of Care 120 mg/dl (65-105)
--- NOTE | 2022-12-28 16:22 | PC.NURSE ---
On 12/28/22, the student, Sarita [facility], provided care and completed [facility] documentation on this patient. I have reviewed the student's documentation and agree with the findings.
[2022-12-28 16:48] LABS: Glucose Point of Care 138 mg/dl (65-105)
--- NOTE | 2022-12-28 17:02 | P.PNIM_ITS ---
Progress Note: A&P Assessment and Plan (1) Atrial fibrillation: Qualifiers: Atrial fibrillation type: unspecified Qualified Code(s): I48.91 - Unspecified atrial fibrillation Code(s): I48.91 - Unspecified atrial fibrillation Status: Acute (2) Acute UTI: Code(s): N39.0 - Urinary tract infection, site not specified Status: Acute (3) Dementia: Code(s): F03.90 - Unspecified dementia, unspecified severity, without behavioral d isturbance, psychotic disturbance, mood disturbance, and anxiety Status: Acute (4) Anemia: Qualifiers: Anemia type: unspecified type Qualified Code(s): D64.9 - Anemia, unspecified Code(s): D64.9 - Anemia, unspecified Status: Acute (5) Weakness: Code(s): R53.1 - Weakness Status: Acute (6) Type 2 diabetes mellitus with hyperglycemia: Qualifiers: Diabetes mellitus skilled nursing insulin use: without bed bug exterminator use Qualified Code(s): E11.65 - Type 2 diabetes mellitus with hyperglycemia Code(s): E11.65 - Type 2 diabetes mellitus with hyperglycemia Status: Acute Plan Problem List 1. weakness * DD: UTI, PNA, anemia, COVID, electrolyte abnormalities, dysrhythmia, DE, sepsis, poor caloric intake * CXR: Moderate-sized hiatal hernia. * EKG - AFIb v Aflut w/RVR 2. AFib * initial rate at arrival to ED 150's, reduction with 500 mL fluid bolus to 115- 120's. * EKG: Atrial flutter with RVR, nonspecific ST and T-wave abnormalities-diffuse leads, baseline artifact, compared to EKG on 09/07/2021 atrial flutter/tachycardia now present. * Cardizem gtt at 5 mg/hr * cardiology on board 3. Acute UTI * WBC 5.3, trend * UA: Cloudy, 1+ protein, trace ketones, 1+ leuks, 21-50 WBC * UC pending * lactic levels * bc * continue fluids and iv abx 4. DM2 * Hypoglycemia protocol * correct regimen ordered - low dose TIDWM and HS 5. anemia * hgb 6.7 tranfuse 2 units * consult gi for hb drop 6. 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 S HPI obtained through patient interview, ED provider report, and chart review due to patient's current altered mental status. Pt is having low blood pressures, fevers and is anemic on labs. Patient was treated for squamous cell carcinoma of the tongue in 2001 via resection, chemotherapy, and radiation.? There is current concern for recurrence of lesions.? Has appointment scheduled with ENT in the next 2 weeks, will schedule with Oncologist after this appointment. The patient is currently endorsing generalized weakness, decreased appetite, body aches, and chills. Review of Systems Review of Systems: Fevers tiredness weakness Exam Narrative: Resting in hospital bed, no visitors at bedside Const: General: no acute distress and uncomfortable HENMT: Face/Nose/Sinus: Normal nares present Mouth: Yes dry mucous membranes Other: scattered small erythematous lesions to the tongue. Eyes: General: appearance normal, both eyes and all related structures Sclera: sclerae normal Pupils: E
--- NOTE | 2022-12-28 17:02 | PM.IMPN ---
Progress Note: A&P Assessment and Plan (1) Atrial fibrillation: Qualifiers: Atrial fibrillation type: unspecified Qualified Code(s): I48.91 - Unspecified atrial fibrillation Code(s): I48.91 - Unspecified atrial fibrillation Status: Acute (2) Acute UTI: Code(s): N39.0 - Urinary tract infection, site not specified Status: Acute (3) Dementia: Code(s): F03.90 - Unspecified dementia, unspecified severity, without behavioral disturbance, psychotic disturbance, mood disturbance, and anxiety Status: Acute (4) Anemia: Qualifiers: Anemia type: unspecified type Qualified Code(s): D64.9 - Anemia, unspecified Code(s): D64.9 - Anemia, unspecified Status: Acute (5) Weakness: Code(s): R53.1 - Weakness Status: Acute (6) Type 2 diabetes mellitus with hyperglycemia: Qualifiers: Diabetes mellitus longterm insulin use: without longterm use Qualified Code(s): E11.65 - Type 2 diabetes mellitus with hyperglycemia Code(s): E11.65 - Type 2 diabetes mellitus with hyperglycemia Status: Acute Plan Problem List 1. weakness DD: UTI, PNA, anemia, COVID, electrolyte abnormalities, dysrhythmia, NH, sepsis, poor caloric intake CXR: Moderate-sized hiatal hernia. EKG - AFIb v Aflut w/RVR 2. AFib initial rate at arrival to ED 150's, reduction with 500 mL fluid bolus to 115-120's. EKG: Atrial flutter with RVR, nonspecific ST and T-wave abnormalities-diffuse leads, baseline artifact, compared to EKG on 09/07/2021 atrial flutter/tachycardia now present. Cardizem gtt at 5 mg/hr cardiology on board 3. Acute UTI WBC 5.3, trend UA: Cloudy, 1+ protein, trace ketones, 1+ leuks, 21-50 WBC UC pending lactic levels bc continue fluids and iv abx 4. DM2 Hypoglycemia protocol correct regimen ordered - low dose TIDWM and HS 5. anemia hgb 6.7 tranfuse 2 units consult gi for hb drop 6. 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 S HPI obtained through patient interview, ED provider report, and chart review due to patient's current altered mental status. Pt is having low blood pressures, fevers and is anemic on labs. Patient was treated for squamous cell carcinoma of the tongue in 2001 via resection, chemotherapy, and radiation.? There is current concern for recurrence of lesions.? Has appointment scheduled with ENT in the next 2 weeks, will schedule with Oncologist after this appointment. The patient is currently endorsing generalized weakness, decreased appetite, body aches, and chills. Review of Systems Review of Systems: Fevers tiredness weakness Exam Narrative: Resting in hospital bed, no visitors at bedside Const: General: no acute distress and uncomfortable HENMT: Face/Nose/Sinus: Normal nares present Mouth: Yes dry mucous membranes Other: scattered small erythematous lesions to the tongue. Eyes: General: appearance normal, both eyes and all related structures Sclera: sclerae normal Pupils: Equal, round and reactive pupils present Resp: Effort & Inspection: normal respiratory effort Auscultation: clear to auscultation bilaterally Cardio: Rate: tachycardic Rhythm: regular rhythm Other: Some ectopy, no murmur or rub. GI: GI Palp: Yes Soft to palpation Auscultation: normal bowel sounds Skin: General skin exam: normal color and no rashes or lesions noted Wounds: no wounds Neuro: Speech: normal speech Sensory Exam: normal sensation Other: A/Ox1, mild somnolence. Extrem: General: normal to inspection Ps
[2022-12-28] MEDS: levoFLOXacin 250 MG/D5W 50 ML 250 MG/50 ML BAG 50 MG IVPB (18:37)
[2022-12-28] MEDS: SODIUM CHLORIDE 0.9% IV 1,000 ML 100 ML IV CONT (18:37)
[2022-12-28 20:34] LABS: Glucose Point of Care 116 mg/dl (65-105)
[2022-12-29] VITALS (19 sets, daily range): BP systolic 102–138; BP diastolic 68–87; PULSE 75–143; RESP 18–20; TEMP 36.7–37.4; O2SAT 93–98
--- NOTE | 2022-12-29 | ECHO_ITS ---
Patient Info Name: Shoshana Mon Age: 72 years : 1950 Gender: Female Ht: 60 in Wt: 124 lbs BSA: 1.55 m2 HR: 135 bpm BP: 136 / 83 mmHg Technical Quality: Fair Exam Date: 12/29/2022 9:33 AM Exam Location: Echo Lab Exam Room: 201 Patient Status: Inpatient Admit Date: 12/27/2022 Staff Ordering Physician: Isaias Mercer DO Diesel Engine Mechanic Apprentice: Gracy Brunson RDCS Attending Provider: Brianna Ramos MD Referring Physician: Ruslan PENA; Exam Type: CA echo doppler color flow Study Info Indications - atrial flutter hx/o cad cabg Complete two-dimensional, color flow and Doppler transthoracic echocardiogram is performed. Summary 1. Complete two-dimensional, color flow and Doppler transthoracic echocardiogram is performed. 2. Left ventricular chamber dimension is normal. 3. Left ventricular systolic function is normal, estimated at 65-70%. 4. There is mild concentric increased left ventricular wall thickness. 5. The left ventricular diastolic function is grade I diastolic dysfunction. 6. E/e' 5 is not elevated. 7. Left atrial chamber dimension is mildly enlarged. 8. There is trace mitral valve regurgitation. 9. There is trace tricuspid valve regurgitation. 10. Mild pulmonary hypertension, estimated pulmonary arterial systolic pressure is 42 mmHg. Left Ventricle E/e' 5 is not elevated. Left ventricular chamber dimension is normal. Left ventricular systolic function is normal, estimated at 65-70%. There is mild concentric increased left ventricular wall thickness. The left ventricular diastolic function is grade I diastolic dysfunction. Right Ventricle Right ventricular chamber dimension is normal. Right ventricular systolic function is normal. Left Atria Left atrial chamber dimension is mildly enlarged. Right Atria Right atrial chamber dimension is normal. Aortic Valve The aortic valve is trileaflet. There is no aortic valve stenosis. There is no aortic valve regurgitation. Pulmonic Valve There is no pulmonic regurgitation. Mitral Valve There is no mitral valve stenosis. There is trace mitral valve regurgitation. Tricuspid Valve There is trace tricuspid valve regurgitation. Mild pulmonary hypertension, estimated pulmonary arterial systolic pressure is 42 mmHg. Pericardium/Pleural There is no pericardial effusion. Inferior Vena Cava Normal inferior vena cava with >50% collapse upon inspiration consistent with normal right atrial pressure, 5 mmHg. Aorta The aortic root size at the sinus of Valsalva is normal. Left Ventricular Outflow Tract Name Value Normal LVOT 2D LVOT Diameter 2.0 cm LVOT Doppler LVOT Peak Gradient 7 mmHg LVOT Mean Gradient 4 mmHg LVOT VTI 21 cm LVOT VTI/AV VTI Ratio 1.1 LVOT Stroke Volume 63 ml LVOT CO 17.9 l/min LVOT CI 11.5 l/min/m2 Pulmonic Valve Name Value Normal
[2022-12-29] MEDS: SODIUM CHLORIDE 0.9% IV 1,000 ML 100 ML IV CONT ×2 (04:53→15:00)
[2022-12-29 05:34] LABS: Hematocrit 32.4 % (37.0-47.0); Mean Corpuscular HGB Conc 30.9 g/dl (32-36); Mean Corpuscular Hemoglobin 26.2 pg (26-34); Mean Platelet Volume 10.9 fl (7.4-10.4); Platelet Count Result 165 k/mm3 (150-375); Red Blood Count 3.81 M/mm3 (4.2-5.4); Red Cell Distribution Width 17.9 % (11.5-14.5); White Blood Count 6.8 K/mm3 (4.5-10.0)
[2022-12-29 05:46] LABS: Lactic Acid Reflex 0.7 mmol/L (0.7-2.0)
[2022-12-29 06:10] LABS: Anion Gap 10 mmol/L (8-16); Blood Urea Nitrogen 12 mg/dL (7-17); Calcium 8.8 mg/dL (8.4-10.2); Carbon Dioxide 23 mmol/L (22-30); Chloride 107 mmol/L (98-107); Estimated CRCL calculation 44 ml/min; Estimated Glomerular Filt Rate > 60; Glucose 62 mg/dL (65-110); Potassium 3.7 mmol/L (3.4-5.0); Sodium 140 mmol/L (137-145)
[2022-12-29 06:22] LABS: Glucose Point of Care 58 mg/dl (65-105)
[2022-12-29] MEDS: DEXTROSE 50% 25 GM/50 ML SYRINGE IV PUSH (06:22)
[2022-12-29 06:39] LABS: Glucose Point of Care 129 mg/dl (65-105)
--- NOTE | 2022-12-29 08:11 | WPDGICN ---
Assessment and Plan Assessment and plan (1) Anemia: Qualifiers: Anemia type: unspecified type Qualified Code(s): D64.9 - Anemia, unspecified Code(s): D64.9 - Anemia, unspecified Status: Acute Assessment and Plan: Will schedule her for EGD and colonoscopy to be done tomorrow. Discussed the procedures and prep with her. Discussed possible risks such as bleeding or perforation. She is agreeable to having the procedures done (2) Weakness: Code(s): R53.1 - Weakness Status: Acute Assessment and Plan: Her progressive weakness is most likely due to the severe anemia. (3) Atrial fibrillation: Qualifiers: Atrial fibrillation type: unspecified Qualified Code(s): I48.91 - Unspecified atrial fibrillation Code(s): I48.91 - Unspecified atrial fibrillation Status: Acute Assessment and Plan: She is not anticoagulated except for taking aspirin. (4) Tachycardia: Code(s): R00.0 - Tachycardia, unspecified Status: Acute Assessment and Plan: her heart rate emergency room was in the 150s. His gradually come down with rehydration but is still rapid, 135 this morning. GI Consult Note Consult date/time: 12/29/22 08:11 HPI: Shoshana Mon is a 72 year old female who presented to the emergency room yesterday complaining of fatigue increasing weakness. The family had noted that her medication was not up to par. The patient is alert morning states that she has had no pain. She has difficult time swallowing because she has had cancer of the tongue and is always somewhat sore. She was found to have a very low hemoglobin 6.7. She has a history of atrial fibrillation but is not on anticoagulants. She says that she takes a baby aspirin each day. She denies using NSAIDs regularly. She does not believe that she has ever had gastrointestinal bleeding. She believes that she had a colonoscopy but it was many years ago. 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 Claudication CVA (cerebral vascular accident) (02/2019) With residual right-sided weakness Dementia Depression Diabetes Diabetic peripheral neuropathy Glaucoma both eyes Heel ulcer Left heel. HTN (hypertension) Hx of radiation therapy Hx of tongue cancer Hypercalcemia Hyperlipidemia Hypertriglyceridemia Hypothyroidism (acquired) Memory loss Osteoporosis PAD (peripheral artery disease) Postmenopausal Postoperative atrial fibrillation Post coronary artery bypass 08/2020 Type 2 diabetes mellitus with diabetic polyneuropathy, without long-term current use of insulin UTI (urinary tract infection), bacterial Vertigo Surgical History Surgical History History of ankle surgery repair of rt ankle fracture Bilateral ankle fracture [id number] Alf Roland History of cardiac catheterization (09/04/20) Diffuse LAD disease proximal half 60-70% mid 99%, left circ with diffuse disease, RCA with 70%, 3rd portion with 89 8%, distal portion 99%, intra-aortic balloon pump placed and patient was transferred to [facility] History of hip surgery Left hip fracture 2021, by Dr. Parra History of orthopedic surgery bilateral removal of 1st rib Hx of oral surgery partial removal of tongue S/P CABG x 3 (08/2020) [facility] ZAFAR to LAD, saphenous vein graft to obtuse marginal, saphenous vein graft to PDA Status post glaucoma surgery both eyes Family History Family History (Rev
--- NOTE | 2022-12-29 08:35 | PM.CNCAR ---
Assessment and Plan Assessment and plan (1) Paroxysmal atrial fibrillation: Code(s): I48.0 - Paroxysmal atrial fibrillation Status: Acute Assessment and Plan: Probably due to UTI, anemia, age. [id number] 6. On aspirin due to high risk for falls in past and had remote episode only. Back in PAF. Start Amiodarone 200 mg PO BID. Obtain echo. (2) Acute UTI: Code(s): N39.0 - Urinary tract infection, site not specified Status: Acute Assessment and Plan: On antibiotics. (3) CAD (coronary artery disease), autologous vein bypass graft: Code(s): I25.810 - Atherosclerosis of coronary artery bypass graft(s) without angina pectoris Status: Acute Assessment and Plan: Stable. (4) HTN (hypertension): Code(s): I10 - Essential (primary) hypertension Status: Acute Assessment and Plan: Stable. (5) Hyperlipidemia: Code(s): E78.5 - Hyperlipidemia, unspecified Status: Acute Assessment and Plan: Was on Atorvastatin, Resume that. (6) Anemia: Qualifiers: Anemia type: unspecified type Qualified Code(s): D64.9 - Anemia, unspecified Code(s): D64.9 - Anemia, unspecified Status: Acute Assessment and Plan: Workup per hospitalist and GI service. History of Present Illness History of Present Illness Consult date/time: 12/29/22 08:35 Reason For Visit: A Fib RVR,UTI,Dehydration Narrative: 72 yr old woman who is my cardiology patient who I last saw in July 2021 and is a patient of Dr. Noyola presents to hospital with weakness, UTI, anemia and found to be in atrial fib/flutter. She has a history of stroke with residual right sided weakness in Feb 2019, inferior? STEMI, CAD, PAD, carotid stenosis, DM, hypertension, dyslipidemia. She reports feeling tired and weak. No chest pain or sob now. She is able to walk less than 50 feet then has fatigue and leg fatigue. In the past she fell 9 times in last 1.5 years due to leg weakness. Denies chest pain, sob, orthopnea, PND, palpitations. Cardiovascular Procedures Museum Educator:: 09/07/20 CABG x3 vessels at [facility]: ZAFAR to LAD, SVG to OM, SVG to PDA. 09/04/[address] Sanchez: LAD diffuse disease with prox 1/2 with 60-70%, mid 99%, LCx with mild diffuse disease, RCA mid 70%, 3rd portion with 80-90%, distal 99%. IABP. Transfer to [facility] [place] for CABG. Echo/MUGA:: 09/04/20 Echo: EF 54%, trace MR/TR. Electrophysiology:: 08/11/21 EKG: Sinus rhythm, borderline T wave in anterior leads, QTc 356 ms. 05/12/21 EKG: Sinus rhythm, borderline T wave in diffuse leads. 09/04/20 EKG: Sinus bradycardia at 57 bpm, LVH, acute inferior STEMI. Stress Tests:: Carotid MRA shows left 50-75% stenosis. 02/09/21 ISAIAH on right 0.57, left 0.53. 02/09/21 Venous duplex: No DVT of legs. 09/05/20 Carotid duplex: 50-69% bilateral ICA stenosis. Review of Systems Review of Systems: All systems reviewed & are unremarkable except as noted in HPI and below Constitutional: Constitutional: Reports as per HPI, Reports chills and Reports fatigue Cardiovascular: Cardiovascular: Reports as per HPI, Denies chest pain, Denies irregular heart rhythm and Denies leg edema Respiratory: Respiratory: Reports as per HPI and Reports dyspnea Gastrointestinal: Gastrointestinal: Reports as per HPI and Denies abdominal pain Genitourinary: Genitourinary: Reports as per HPI Musculoskeletal: Musculoskeletal: Reports as per HPI Neurologic: Reports as per HPI, Denies dizziness and Denies syncope [facility] Past Medical History Medical History Ankle fracture, right Anxiety 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 Claudication CVA (cerebral vascular accident) (02/2019) With residual right-sided
[2022-12-29 09:02] LABS: Glucose Point of Care 85 mg/dl (65-105)
[2022-12-29] MEDS: VENLAFAXINE HCL XR 75 MG CAP.ER.24H 225 MG PO (09:38)
[2022-12-29] MEDS: GABAPENTIN 300 MG CAPSULE PO (09:38)
[2022-12-29] MEDS: ESCITALOPRAM OXALATE 10 MG TABLET 20 MG PO (09:39)
[2022-12-29] MEDS: THERAPEUTIC MULTIVITAMINS/MINERALS TAB (*BKC) 1 TABLET PO (09:39)
[2022-12-29] MEDS: MIRABEGRON 50 MG ER TABLET PO (09:39)
[2022-12-29] MEDS: ASPIRIN 81 MG ENTERIC TABLET PO (09:39)
[2022-12-29] MEDS: FERROUS SULFATE 325 MG TABLET DR BY MOUTH (09:39)
[2022-12-29] MEDS: AMIODARONE HCL 200 MG TABLET PO ×2 (09:40→20:06)
[2022-12-29] MEDS: FLUTICASONE PROPIONATE 0.05% NA SPR 16 GM BTL (*BKC) 2 SPRAY NASAL (09:43)
[2022-12-29] MEDS: BISACODYL 5 MG TABLET EC 10 MG PO ×3 (11:48→20:06)
[2022-12-29 12:04] LABS: Glucose Point of Care 187 mg/dl (65-105)
[2022-12-29] MEDS: polyethylene glycoL 3350 238 GM BOTTLE PO (13:56)
--- NOTE | 2022-12-29 14:41 | P.PNIM_ITS ---
Progress Note: A&P Assessment and Plan (1) Atrial fibrillation: Qualifiers: Atrial fibrillation type: unspecified Qualified Code(s): I48.91 - Unspecified atrial fibrillation Code(s): I48.91 - Unspecified atrial fibrillation Status: Acute (2) Acute UTI: Code(s): N39.0 - Urinary tract infection, site not specified Status: Acute (3) Dementia: Code(s): F03.90 - Unspecified dementia, unspecified severity, without behavioral d isturbance, psychotic disturbance, mood disturbance, and anxiety Status: Acute (4) Anemia: Qualifiers: Anemia type: unspecified type Qualified Code(s): D64.9 - Anemia, unspecified Code(s): D64.9 - Anemia, unspecified Status: Acute (5) Weakness: Code(s): R53.1 - Weakness Status: Acute (6) Type 2 diabetes mellitus with hyperglycemia: Qualifiers: Diabetes mellitus shelter insulin use: without termite control representative use Qualified Code(s): E11.65 - Type 2 diabetes mellitus with hyperglycemia Code(s): E11.65 - Type 2 diabetes mellitus with hyperglycemia Status: Acute Plan Problem List 1. weakness * DD: UTI, PNA, anemia, COVID, electrolyte abnormalities, dysrhythmia, [place], sepsis, poor caloric intake * CXR: Moderate-sized hiatal hernia. * EKG - AFib v Aflut w/RVR 2. AFib * initial rate at arrival to ED 150's, reduction with 500 mL fluid bolus to 115- 120's. * EKG: Atrial flutter with RVR, nonspecific ST and T-wave abnormalities-diffuse leads, baseline artifact, compared to EKG on 09/07/2021 atrial flutter/tachycardia now present. * Cardizem gtt at 5 mg/hr transitioned to oral Cardizem * cardiology on board 3. Acute UTI * WBC 5.3, trend * UA: Cloudy, 1+ protein, trace ketones, 1+ leuks, 21-50 WBC * UC pending * lactic levels * bc pending * can start IV Rocephin empirically 4. DM2 * Hypoglycemia protocol * correct regimen ordered - low dose TIDWM and HS 5. anemia * hgb 6.7 tranfuse 2 units * consult gi for hb drop * gi bell do EGD and colonoscpy * pt has history of oral cancer 6. 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 S HPI obtained through patient interview, ED provider report, and chart review due to patient's current altered mental status. Pt is having low blood pressures, fevers and is anemic on labs. Patient was treated for squamous cell carcinoma of the tongue in 2001 via resection, chemotherapy, and radiation.? There is current concern for recurrence of lesions.? Has appointment scheduled with ENT in the next 2 weeks, will schedule with Oncologist after this appointment. The patient is currently endor sing generalized weakness, decreased appetite, body aches, and chills. Pt has no fevers today but still looks very weak and tired GI will be doing EGD today and colonoscopy kirk Pt seen by cardiology pt started on oral amiodarone Review of Systems Review of Systems: Tired and weak Exam Const: General: no acute distress and uncomfortable HENMT: Face/Nose/Sinus: Normal nares present Mouth: Yes dry mucous membranes Other:
--- NOTE | 2022-12-29 14:41 | PM.IMPN ---
Progress Note: A&P Assessment and Plan (1) Atrial fibrillation: Qualifiers: Atrial fibrillation type: unspecified Qualified Code(s): I48.91 - Unspecified atrial fibrillation Code(s): I48.91 - Unspecified atrial fibrillation Status: Acute (2) Acute UTI: Code(s): N39.0 - Urinary tract infection, site not specified Status: Acute (3) Dementia: Code(s): F03.90 - Unspecified dementia, unspecified severity, without behavioral disturbance, psychotic disturbance, mood disturbance, and anxiety Status: Acute (4) Anemia: Qualifiers: Anemia type: unspecified type Qualified Code(s): D64.9 - Anemia, unspecified Code(s): D64.9 - Anemia, unspecified Status: Acute (5) Weakness: Code(s): R53.1 - Weakness Status: Acute (6) Type 2 diabetes mellitus with hyperglycemia: Qualifiers: Diabetes mellitus alf insulin use: without alf use Qualified Code(s): E11.65 - Type 2 diabetes mellitus with hyperglycemia Code(s): E11.65 - Type 2 diabetes mellitus with hyperglycemia Status: Acute Plan Problem List 1. weakness DD: UTI, PNA, anemia, COVID, electrolyte abnormalities, dysrhythmia, [place], sepsis, poor caloric intake CXR: Moderate-sized hiatal hernia. EKG - AFib v Aflut w/RVR 2. AFib initial rate at arrival to ED 150's, reduction with 500 mL fluid bolus to 115-120's. EKG: Atrial flutter with RVR, nonspecific ST and T-wave abnormalities-diffuse leads, baseline artifact, compared to EKG on 09/07/2021 atrial flutter/tachycardia now present. Cardizem gtt at 5 mg/hr transitioned to oral Cardizem cardiology on board 3. Acute UTI WBC 5.3, trend UA: Cloudy, 1+ protein, trace ketones, 1+ leuks, 21-50 WBC UC pending lactic levels bc pending can start IV Rocephin empirically 4. DM2 Hypoglycemia protocol correct regimen ordered - low dose TIDWM and HS 5. anemia hgb 6.7 tranfuse 2 units consult gi for hb drop gi bell do EGD and colonoscpy pt has history of oral cancer 6. 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 S HPI obtained through patient interview, ED provider report, and chart review due to patient's current altered mental status. Pt is having low blood pressures, fevers and is anemic on labs. Patient was treated for squamous cell carcinoma of the tongue in 2001 via resection, chemotherapy, and radiation.? There is current concern for recurrence of lesions.? Has appointment scheduled with ENT in the next 2 weeks, will schedule with Oncologist after this appointment. The patient is currently endorsing generalized weakness, decreased appetite, body aches, and chills. Pt has no fevers today but still looks very weak and tired GI will be doing EGD today and colonoscopy kirk Pt seen by cardiology pt started on oral amiodarone Review of Systems Review of Systems: Tired and weak Exam Const: General: no acute distress and uncomfortable HENMT: Face/Nose/Sinus: Normal nares present Mouth: Yes dry mucous membranes Other: scattered small erythematous lesions to the tongue. Eyes: General: appearance normal, both eyes and all related structures Sclera: sclerae normal Pupils: Equal, round and reactive pupils present Resp: Effort & Inspection: normal respiratory effort Auscultation: clear to auscultation bilaterally Cardio: Rate: tachycardic Rhythm: regular rhythm Other: Some ectopy, no murmur or rub. GI: Auscultation: normal bowel sounds Skin: General skin exam: normal color and no rashes or lesions noted Wounds: no wo
--- NOTE | 2022-12-29 16:06 | PC.NURSE ---
On 12/29/22, the student, Bernadette CORRIGAN [facility], provided care and completed [employer] documentation on this patient. I have reviewed the student's documentation and agree with the findings.
[2022-12-29 17:22] LABS: Glucose Point of Care 138 mg/dl (65-105)
[2022-12-29] MEDS: levoFLOXacin 250 MG/D5W 50 ML 250 MG/50 ML BAG 50 MG IVPB (17:45)
[2022-12-29 20:44] LABS: Glucose Point of Care 124 mg/dl (65-105)
[2022-12-30] VITALS (24 sets, daily range): BP systolic 94–135; BP diastolic 43–93; PULSE 63–138; RESP 17–24; TEMP 36.4–36.7; O2SAT 94–100
[2022-12-30] MEDS: SODIUM CHLORIDE 0.9% IV 1,000 ML 100 ML IV CONT ×2 (00:15→23:37)
[2022-12-30] MEDS: LEVOTHYROXINE SODIUM 50 MCG TABLET PO (05:35)
[2022-12-30 05:36] LABS: Hematocrit 30.8 % (37.0-47.0); Hemoglobin 9.5 g/dL (12.0-15.0); Mean Corpuscular HGB Conc 30.8 g/dl (32-36); Mean Corpuscular Hemoglobin 26.4 pg (26-34); Mean Corpuscular Volume 85.6 fl (80-100); Mean Platelet Volume 11.1 fl (7.4-10.4); Platelet Count Result 136 k/mm3 (150-375); Red Cell Distribution Width 17.8 % (11.5-14.5); White Blood Count 6.2 K/mm3 (4.5-10.0)
[2022-12-30 05:47] LABS: Anion Gap 9 mmol/L (8-16); Blood Urea Nitrogen 9 mg/dL (7-17); Calcium 8.5 mg/dL (8.4-10.2); Carbon Dioxide 19 mmol/L (22-30); Chloride 109 mmol/L (98-107); Estimated CRCL calculation 50 ml/min; Estimated Glomerular Filt Rate > 60; Glucose 88 mg/dL (65-110); Potassium 2.9 mmol/L (3.4-5.0); Sodium 137 mmol/L (137-145)
--- NOTE | 2022-12-30 06:04 | ECG_ITS ---
Measurements Intervals [place] Rate: 129 P: -82 MA: 138 QRS: 6 QRSD: 90 T: -7 QT: 334 QTc: 489 Interpretive Statements ATRIAL TACHYCARDIA INFERIOR INFARCT, AGE INDETERMINATE BORDERLINE T WAVE ABNORMALITY- ANTEROLATERAL LEADS ABNORMAL ECG COMPARED TO ECG 12/28/2022 08:27:59 NO SIGNIFICANT CHANGES Electronically Signed On 12-30-2022 7:28:43 [employer] SALES SUPERVISOR by Isaias Mercer D.O.
[2022-12-30] MEDS: POTASSIUM CHLORIDE INJ 40 MEQ in SODIUM CHLORIDE 0.9% IV 500 ML 130 MEQ IVPB (07:25)
--- NOTE | 2022-12-30 07:34 | PM.PNCARD ---
Progress Note: A&P Assessment and Plan (1) Paroxysmal atrial fibrillation: Code(s): I48.0 - Paroxysmal atrial fibrillation Status: Acute Assessment and Plan: Probably due to UTI, anemia, age. [id number] 6. On aspirin due to high risk for falls in past and had remote episode only. Back in PAF/PAT. 12/29/22 Echo: EF 65-70%, mild LVH, grade I diastolic dysfunction (E/e' 5), mild LAE, trace MR/TR, RVSP 42 mmHg. Started 12/29/22 Amiodarone 200 mg PO BID. Check EKG. Start Metoprolol Tartate 25 mg PO BID to improve HR control. (2) Acute UTI: Code(s): N39.0 - Urinary tract infection, site not specified Status: Acute Assessment and Plan: On antibiotics. (3) CAD (coronary artery disease), autologous vein bypass graft: Code(s): I25.810 - Atherosclerosis of coronary artery bypass graft(s) without angina pectoris Status: Acute Assessment and Plan: Stable. (4) HTN (hypertension): Code(s): I10 - Essential (primary) hypertension Status: Acute Assessment and Plan: Stable. (5) Hyperlipidemia: Code(s): E78.5 - Hyperlipidemia, unspecified Status: Acute Assessment and Plan: Was on Atorvastatin, Resume that. (6) Anemia: Qualifiers: Anemia type: unspecified type Qualified Code(s): D64.9 - Anemia, unspecified Code(s): D64.9 - Anemia, unspecified Status: Acute Assessment and Plan: Workup per hospitalist and GI service. Endoscopies are planned. Subjective Date/time seen: 12/30/22 07:34 Interval history: Denies chest pain or sob. Exam Const: General: cooperative and comfortable Orientation/consciousness: oriented to person Resp: Auscultation: clear to auscultation bilaterally, no crackles, no rales, no rhonchi and no wheezes Cardio: Rate: tachycardic Rhythm: regular rhythm Heart sounds: no murmurs Peripheral pulses: dorsalis pedis present Neuro: General: oriented to person Extrem: Right lower extremity: no edema Left lower extremity: no edema Objective Data Vital Signs Vital Signs: Vital Signs - 24 hr 12/29/22 09:40 12/29/22 08:00 12/29/22 12:00 Temperature 98.4 F 98.1 F Pulse Rate 137 H 139 H 143 H Respiratory Rate 20 18 Blood Pressure 138/87 105/68 Pulse Oximetry 96 96 Oxygen Delivery 12/29/22 08:00 12/29/22 10:00 12/29/22 12:00 Temperature Pulse Rate 87 137 H 139 H Respiratory Rate Blood Pressure Pulse Oximetry Oxygen Delivery 12/29/22 14:00 12/29/22 15:33 12/29/22 08:00 Temperature 98.0 F Pulse Rate 137 H 137 H Respiratory Rate 20 Blood Pressure 102/75 Pulse Oximetry 94 Oxygen Delivery Room Air 12/29/22 16:00 12/29/22 12:00 12/29/22 16:00 Temperature Pulse Rate 80 Respiratory Rate Blood Pressure Pulse Oximetry Oxygen Delivery Room Air Room Air 12/29/22 18:00 12/29/22 19:46 12/29/22 20:06 Temperature 98.8 F Pulse Rate 137 H 133 H 75 Respiratory Rate 20 Blood Pressure 111/68 Pulse Oximetry 98 Oxygen Delivery 12/29/22 20:00 12/29/22 23:11 12/30/22 00:00 Temperature 98.3 F Pulse Rate 136 H Respiratory Rate 20 Blood Pressure 119/72 Pulse Oximetry 94 Oxygen Delivery Room Air Room Air 12/29/22 20:00 12/29/22 22:00 12/30/22 00:00 Temperature Pulse Rate 134 H 133 H 96 Respiratory Rate Blood Pressure Pulse Oximetry Oxygen Delivery 12/30/22 02:00 12/30/22 03:21 12/30/22 03:32 Temperature 98.1 F Pulse Rate 89 130 H Respiratory Rate 20 Blood Pressure 130/82 Pulse Oximetry 95 Oxygen Delivery Room Air 12/30/22 04:00 12/30/22 06:00 12/30/22 06:23 Temperature Pulse Rate 127 H 138 H 73 Respiratory Rate Blood Pressure Pulse Oximetry Oxygen Delivery Intake/Output Intake/Output: Intake & Output 12/27/22 12/28/22 12/29/22 12/30/22 23:59 23:59 23:59 23:59 Intake Total 211 133 4063 1000 Output Total 1200 Bal
[2022-12-30 08:42] LABS: Glucose Point of Care 96 mg/dl (65-105)
[2022-12-30] MEDS: ACETAMINOPHEN 325 MG TABLET 650 MG PO (08:49)
[2022-12-30] MEDS: VENLAFAXINE HCL XR 75 MG CAP.ER.24H 225 MG PO (08:50)
[2022-12-30] MEDS: AMIODARONE HCL 200 MG TABLET PO ×2 (08:50→21:38)
[2022-12-30] MEDS: FERROUS SULFATE 325 MG TABLET DR BY MOUTH (08:51)
[2022-12-30] MEDS: METOPROLOL TARTRATE 25 MG TABLET PO ×3 (08:51→23:37)
[2022-12-30] MEDS: ASPIRIN 81 MG ENTERIC TABLET PO (08:51)
[2022-12-30] MEDS: THERAPEUTIC MULTIVITAMINS/MINERALS TAB (*BKC) 1 TABLET PO (08:51)
[2022-12-30] MEDS: ESCITALOPRAM OXALATE 10 MG TABLET 20 MG PO (08:52)
[2022-12-30] MEDS: MIRABEGRON 50 MG ER TABLET PO (08:52)
[2022-12-30] MEDS: FLUTICASONE PROPIONATE 0.05% NA SPR 16 GM BTL (*BKC) 2 SPRAY NASAL (08:52)
[2022-12-30] MEDS: GABAPENTIN 300 MG CAPSULE PO (08:52)
--- NOTE | 2022-12-30 09:24 | PM.IMPN ---
Progress Note: A&P Assessment and Plan (1) Atrial fibrillation: Qualifiers: Atrial fibrillation type: unspecified Qualified Code(s): I48.91 - Unspecified atrial fibrillation Code(s): I48.91 - Unspecified atrial fibrillation Status: Acute Assessment and Plan: 12/30: - Rate is variably controlled, intermittently in sinus rhythm now on amiodarone - toprol added by cardiology today. Rate remains low 100 range (generally less than 115 on my tele review) but patient tolerating well. Expect better control as toprol reaches steady state. Will add in 12.5mg this afternoon one time dose. - On asa from home, no full strength anticoag d/t fall risk. - Cardiology is consulted and their recs are appreciated. (2) Acute UTI: Code(s): N39.0 - Urinary tract infection, site not specified Status: Acute Assessment and Plan: 12/30: No growth on urine. Plan to dc abx at this time without acute findings to suggest alternative need. (3) Dementia: Code(s): F03.90 - Unspecified dementia, unspecified severity, without behavioral disturbance, psychotic disturbance, mood disturbance, and anxiety Status: Acute Assessment and Plan: 12/30: Stable mentation in line with prior documented exams. Pleasantly confused. (4) Anemia: Qualifiers: Anemia type: unspecified type Qualified Code(s): D64.9 - Anemia, unspecified Code(s): D64.9 - Anemia, unspecified Status: Acute Assessment and Plan: 12/30: Stable hgb currently at 9.5. Hold anticoagulation at this time d/t recent anemia, noted gastritis. - EGD findings of gastritis, colonoscopy negative acute findings. - Start protonix. (5) Weakness: Code(s): R53.1 - Weakness Status: Acute Assessment and Plan: 12/30: This may represent her baseline from facility. No focal weakness. Plan for a PT/OT eval prior to discharge back to facility. (6) Type 2 diabetes mellitus with hyperglycemia: Qualifiers: Diabetes mellitus senior care insulin use: without senior care use Qualified Code(s): E11.65 - Type 2 diabetes mellitus with hyperglycemia Code(s): E11.65 - Type 2 diabetes mellitus with hyperglycemia Status: Acute Assessment and Plan: 12/30: Patient is stable with generally within glycemic goal accuchecks. Currently on glimeperide. Will continue this, although if any noted hypoglycemia would recommend dc glimeperide and add in insulin regimen. (7) Hypokalemia: Code(s): E87.6 - Hypokalemia Status: Acute Assessment and Plan: 12/30 80meq kcl today. Repeat labs in the am. Plan Plan to resume diabetic diet after egd/colonoscopy. VTE proph on hold d/t gastritis, anemia. SCD ordered. Disposition: Expect discharge back to facility once improved. Time Spent With Patient Time: > 30 minutes. 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 Patient was treated for squamous cell carcinoma of the tongue in 2001 via resection, chemotherapy, and radiation.? There is current concern for recurrence of lesions.? Has appointment scheduled with ENT in the next 2 weeks, will schedule with Oncologist after this appointment. The patient is currently endorsing generalized weakness, decreased appetite, body aches, and chills. Pt has no fevers today but still looks very weak and tired GI will be doing EGD today and colonoscopy kirk Pt seen by cardiology pt started on oral amiodarone 12/30: Patient states she feels fine this morning. Denies palpitations or chest pain. States resting well. Review of Systems Review of Systems: All systems reviewed & are unr
[2022-12-30 09:44] LABS: Magnesium 1.8 mg/dL (1.6-2.3)
--- NOTE | 2022-12-30 09:50 | PCNFU ---
Nutrition Follow-Up Complete: Inadequate oral intake related to loss of appetite, mouth pain, altered mental status as evidenced by report of poor intake for several weeks, mouth pain, weight loss -15%/1 year Goal: Improve PO intake to at least 50% meals and supplements Patient has limited progress towards goal. We will continue current goal. Pt current nutrition is NPO. Nutrition recommendation: Regular with Ensure compact BID. Last recorded weight is 56.9 kg, down from 57.1 kg on admit. Bowel Motility:+BM reported 12/30 Labs Reviewed:K 2.9,Cr 0.6,Hct 30.8,Hgb 9.5 Meds Noted:Effexor, MVI, Lexapro, Neurontin, Synthroid. Skin: WNL Additional Notes: Patient is NPO for colonoscopy/EGD today. Oral intake remains poor on regular diet-0-25% of meals. PO intake encouraged. Diet supplements recommended of Ensure compact BID (220 kcals and 9 gms protein) when diet order advances. Agree with diet orders. Monitoring intakes, weight, labs, supplement tolerance, plan of care Follow up in 3 days
[2022-12-30 11:48] LABS: Glucose Point of Care 92 mg/dl (65-105)
[2022-12-30] MEDS: LACTATED RINGERS 1,000 ML 150 ML IV CONT (12:53)
[2022-12-30 12:58] LABS: Glucose Point of Care 75 mg/dl (65-105)
--- NOTE | 2022-12-30 13:00 | WPDANESEPPF ---
Anes - Initial Pre Proc Eval Procedure: Operation Date: 12/30/22 13:30 Proposed Procedures p Esophagogastroduodenoscopy & Colonoscopy - Yves Kidd MD Date/Time: 12/30/22 13:00 Surgeon: Brianna Ramos MD Pre Op Diagnosis: A Fib RVR,UTI,Dehydration Patient Data Age: 72 Gender: F Height: 1.52 m Weight: 56.9 kg Last Vital Signs Temp 97.9 F 12/30/22 12:49 Pulse 115 H 12/30/22 12:49 Resp 20 12/30/22 12:49 BP 118/80 12/30/22 12:49 Pulse Ox 96 12/30/22 12:49 O2 Del Method Room Air 12/30/22 12:49 Allergies Allergy/AdvReac Type Severity Reaction Status Date / Time Iodinated Contrast Media Allergy Severe Dyspnea / Verified 12/30/22 12:44 SOB codeine Allergy Intermediate Unknown Verified 12/30/22 12:44 Sulfa (Sulfonamide Allergy Intermediate unknown Verified 12/30/22 12:44 Antibiotics) Penicillins Allergy Unknown Hives Verified 12/30/22 12:44 Home Medications Medication Instructions Recorded Confirmed Type gabapentin 100 mg capsule 300 mg PO DAILY 03/06/19 12/27/22 History mirabegron 50 mg tablet,extended 50 mg PO DAILY 03/06/19 12/27/22 History release 24 hr (Myrbetriq) aspirin 81 mg tablet,delayed 81 mg PO DAILY #30 tabs 03/07/19 12/27/22 Rx release fluticasone propionate 50 2 spray intranasal DAILY 05/12/21 12/27/22 History mcg/actuation nasal spray,suspension (Flonase Allergy Relief) liraglutide 0.6 mg/0.1 mL (18 mg/3 0.6 mg subcut DAILY 05/12/21 12/27/22 History mL) subcutaneous pen injector (Victoza 2-Yann) escitalopram oxalate 20 mg tablet 20 mg PO DAILY 06/16/21 12/27/22 History glimepiride 2 mg tablet 2 mg PO DAILY 06/16/21 12/27/22 History acetaminophen 325 mg tablet 650 mg PO Q6H PRN Pain (Scale 12/27/22 12/27/22 History (Tylenol) Score 1-3) benzonatate 200 mg capsule 200 mg PO TID PRN Cough 12/27/22 12/27/22 History ferrous sulfate 325 mg (65 mg 325 mg PO DAILY 12/27/22 12/27/22 History iron) tablet (FeroSul) levothyroxine 50 mcg tablet 50 mcg PO DAILY 12/27/22 12/27/22 History multivitamin with iron 1 tablet PO DAILY 12/27/22 12/27/22 History venlafaxine 225 mg tablet,extended 225 mg PO DAILY 12/27/22 12/27/22 History release 24 hr Laboratory Tests 12/29/22 12/29/22 12/30/22 16:36 20:40 04:59 WBC RBC Hgb Hct MCV MCH MCHC RDW Plt Count MPV Sodium Potassium Chloride Carbon Dioxide Anion Gap BUN Creatinine Estim Creat Clear Calc Estimated GFR Glucose POC Capillary Glucose 138 H mg/dl 124 H mg/dl (65-105) (65-105) Calcium Magnesium 1.8 mg/dL (1.6-2.3) 12/30/22 12/30/22 12/30/22 05:02 08:38 11:36 WBC 6.2 K/mm3 (4.5-10.0) RBC 3.60 L M/mm3 (4.2-5.4) Hgb 9.5 L g/dL (12.0-15.0) Hct 30.8 L % (37.0-47.0) MCV 85.6 fl (80-100) MCH 26.4 pg (26-34) MCHC 30.8 L g/dl (32-36) RDW 17.8 H % (11.5-14.5) Plt Count 136 L k/mm3 (150-375) MPV 11.1 H fl (7.4-10.4) Sodium 137 mmol/L (137-145) Potassium 2.9 L mmol/L (3.4-5.0) Chloride 109 H mmol/L (98-107) Carbon Dioxide 19 L mmol/L (22-30) Anion Gap 9 mmol/L (8-16) BUN 9 mg/dL (7-17) Creatinine 0.60 L mg/dL (0.7-1.0) Estim Creat Clear Calc 50 ml/min Estimated GFR > 60 (59 - ) Glucose 88 mg/dL (65-110) POC Capillary Glucose 96 mg/dl 92 mg/dl (65-105) (65-105) Calcium 8.5 mg/dL (8.4-10.2) Magnesium 12/30/22 12:56 WBC RBC Hgb Hct MCV MCH MCHC RDW Plt Count MPV
--- NOTE | 2022-12-30 13:28 | SUR.OPER ---
EGD ended at 1317. Colonoscopy began at 1322.
[2022-12-30] MEDS: DEXTROSE 50% 25 GM/50 ML SYRINGE IV PUSH (13:58)
[2022-12-30 14:11] LABS: Glucose Point of Care 64 mg/dl (65-105)
[2022-12-30 14:11] LABS: Glucose Point of Care 116 mg/dl (65-105)
[2022-12-30] MEDS: SODIUM CHLORIDE 0.9% IV 1,000 ML 150 ML IV CONT (14:22)
[2022-12-30] MEDS: POTASSIUM CHLORIDE 20 MEQ ER TABLET 40 MEQ PO ×2 (14:23→16:57)
[2022-12-30 16:50] LABS: Glucose Point of Care 116 mg/dl (65-105)
[2022-12-30] MEDS: PANTOPRAZOLE 40 MG TABLET PO (16:57)
[2022-12-30 20:14] LABS: Glucose Point of Care 104 mg/dl (65-105)
[2022-12-30] MEDS: TRIMETHOBENZAMIDE HCL 200 MG/2 ML VIAL IM (21:56)
[2022-12-31] VITALS (25 sets, daily range): BP systolic 99–140; BP diastolic 41–72; PULSE 54–128; RESP 16–20; TEMP 36.4–37.2; O2SAT 93–98
[2022-12-31 05:21] LABS: Hematocrit 30.4 % (37.0-47.0); Hemoglobin 8.8 g/dL (12.0-15.0); Mean Corpuscular HGB Conc 28.9 g/dl (32-36); Mean Corpuscular Hemoglobin 26.3 pg (26-34); Mean Platelet Volume 11.3 fl (7.4-10.4); Platelet Count Result 118 k/mm3 (150-375); Red Blood Count 3.34 M/mm3 (4.2-5.4); Red Cell Distribution Width 17.7 % (11.5-14.5); White Blood Count 5.1 K/mm3 (4.5-10.0)
[2022-12-31 05:31] LABS: Anion Gap 4 mmol/L (8-16); Blood Urea Nitrogen 8 mg/dL (7-17); Calcium 8.4 mg/dL (8.4-10.2); Carbon Dioxide 20 mmol/L (22-30); Chloride 114 mmol/L (98-107); Estimated CRCL calculation 50 ml/min; Estimated Glomerular Filt Rate > 60; Glucose 63 mg/dL (65-110); Magnesium 1.8 mg/dL (1.6-2.3); Potassium 4.6 mmol/L (3.4-5.0); Sodium 138 mmol/L (137-145)
[2022-12-31] MEDS: METOPROLOL TARTRATE 25 MG TABLET PO (05:47)
[2022-12-31] MEDS: LEVOTHYROXINE SODIUM 50 MCG TABLET PO (05:47)
[2022-12-31] MEDS: GLUCOSE ORAL GEL 15 GM OF GLUCSE IN 37.5 GM TUBE PO (06:42)
--- NOTE | 2022-12-31 06:59 | ECG_ITS ---
Measurements Intervals [place] Rate: 56 P: -14 PA: 135 QRS: 0 QRSD: 88 T: 20 QT: 439 QTc: 425 Interpretive Statements SINUS BRADYCARDIA CONSIDER INFERIOR INFARCT, AGE INDETERMINATE BASELINE ARTIFACT- I, III, AVR, AVL, AVF, V1-V2 ABNORMAL ECG COMPARED TO ECG 12/30/2022 06:45:50 SINUS BRADYCARDIA NOW PRESENT Electronically Signed On 12-31-2022 9:22:23 DOG DAY CARE ATTENDANT by Isaias Mercer D.O.
[2022-12-31 07:03] LABS: Glucose Point of Care 93 mg/dl (65-105)
--- NOTE | 2022-12-31 07:35 | PM.PNCARD ---
Progress Note: A&P Assessment and Plan (1) Paroxysmal atrial fibrillation: Code(s): I48.0 - Paroxysmal atrial fibrillation Status: Acute Assessment and Plan: Back in Sinus rhythm. Probably due to UTI, anemia, age. [id number]. On aspirin due to high risk for falls in past and had remote episode only. 12/29/22 Echo: EF 65-70%, mild LVH, grade I diastolic dysfunction (E/e' 5), mild LAE, trace MR/TR, RVSP 42 mmHg. Started 12/29/22 Amiodarone 200 mg PO BID. Check EKG. Decrease Metoprolol Tartate 12.5 mg PO BID. (2) Acute UTI: Code(s): N39.0 - Urinary tract infection, site not specified Status: Acute Assessment and Plan: On antibiotics. (3) CAD (coronary artery disease), autologous vein bypass graft: Code(s): I25.810 - Atherosclerosis of coronary artery bypass graft(s) without angina pectoris Status: Acute Assessment and Plan: Stable. (4) HTN (hypertension): Code(s): I10 - Essential (primary) hypertension Status: Acute Assessment and Plan: Stable. (5) Hyperlipidemia: Code(s): E78.5 - Hyperlipidemia, unspecified Status: Acute Assessment and Plan: Was on Atorvastatin, Resume that. (6) Anemia: Qualifiers: Anemia type: unspecified type Qualified Code(s): D64.9 - Anemia, unspecified Code(s): D64.9 - Anemia, unspecified Status: Acute Assessment and Plan: Workup per hospitalist and GI service. Endoscopies are planned. Subjective Date/time seen: 12/31/22 07:35 Interval history: Denies chest pain or sob. Exam Const: General: cooperative, healthy appearing and comfortable Orientation/consciousness: oriented to person Resp: Auscultation: clear to auscultation bilaterally, no crackles, no rales, no rhonchi and no wheezes Cardio: Rate: regular rate Rhythm: regular rhythm Heart sounds: no murmurs Peripheral pulses: dorsalis pedis present Neuro: General: oriented to person Extrem: Right lower extremity: no edema Left lower extremity: no edema Objective Data Vital Signs Vital Signs: Vital Signs - 24 hr 12/30/22 07:41 12/30/22 08:00 12/30/22 10:00 Temperature Pulse Rate 130 H 133 H 118 H Respiratory Rate 20 Blood Pressure 128/69 Pulse Oximetry 94 Oxygen Delivery 12/30/22 08:00 12/30/22 12:49 12/30/22 12:00 Temperature 97.9 F Pulse Rate 118 H 115 H 115 H Respiratory Rate 20 20 Blood Pressure 118/80 Pulse Oximetry 94 96 Oxygen Delivery Room Air Room Air 12/30/22 12:00 12/30/22 13:43 12/30/22 13:53 Temperature Pulse Rate 115 H 113 H 113 H Respiratory Rate 20 19 24 H Blood Pressure 125/78 116/72 Pulse Oximetry 96 100 100 Oxygen Delivery Room Air Room Air Room Air 12/30/22 14:03 12/30/22 14:17 12/30/22 14:19 Temperature Pulse Rate 112 H 111 H 112 H Respiratory Rate 17 Blood Pressure 127/79 Pulse Oximetry 99 Oxygen Delivery Room Air 12/30/22 15:37 12/30/22 16:00 12/30/22 16:00 Temperature 97.7 F Pulse Rate 113 H 118 H 118 H Respiratory Rate 20 20 Blood Pressure 135/93 H Pulse Oximetry 98 98 Oxygen Delivery Room Air 12/30/22 17:45 12/30/22 20:52 12/30/22 21:38 Temperature 97.6 F Pulse Rate 86 63 65 Respiratory Rate 18 Blood Pressure 94/43 L Pulse Oximetry 95 Oxygen Delivery 12/30/22 23:37 12/31/22 00:00 12/30/22 20:00 Temperature 97.6 F Pulse Rate 68 67 Respiratory Rate 18 Blood Pressure 119/54 L Pulse Oximetry 97 Oxygen Delivery Room Air 12/31/22 00:00 12/30/22 20:00 12/30/22 22:00 Temperature Pulse Rate 76 66 Respiratory Rate Blood Pressure Pulse Oximetry Oxygen Delivery Room Air 12/31/22 00:00 12/31/22 02:00 12/31/22 04:00 Temperature Pulse Rate 67 62 Respiratory Rate Blood Pressure Pulse Oximetry Oxygen Delivery Room Air 12/31/22 04:53 12/31/22 05:43 12/31/22 05:47 Temperature 97.6 F Pulse Rate 128 H 62 Resp
[2022-12-31 07:45] LABS: Glucose Point of Care 85 mg/dl (65-105)
[2022-12-31 07:59] LABS: Glucose Point of Care 67 mg/dl (65-105)
[2022-12-31] MEDS: ASPIRIN 81 MG ENTERIC TABLET PO (09:13)
[2022-12-31] MEDS: FERROUS SULFATE 325 MG TABLET DR BY MOUTH (09:13)
[2022-12-31] MEDS: AMIODARONE HCL 200 MG TABLET PO ×2 (09:14→21:33)
[2022-12-31] MEDS: GLIMEPIRIDE 2 MG TABLET PO (09:14)
[2022-12-31] MEDS: GABAPENTIN 300 MG CAPSULE PO (09:14)
[2022-12-31] MEDS: VENLAFAXINE HCL XR 75 MG CAP.ER.24H 225 MG PO (09:14)
[2022-12-31] MEDS: ESCITALOPRAM OXALATE 10 MG TABLET 20 MG PO (09:15)
[2022-12-31] MEDS: THERAPEUTIC MULTIVITAMINS/MINERALS TAB (*BKC) 1 TABLET PO (09:15)
[2022-12-31] MEDS: MIRABEGRON 50 MG ER TABLET PO (09:15)
[2022-12-31] MEDS: PANTOPRAZOLE 40 MG TABLET PO (09:15)
[2022-12-31] MEDS: FLUTICASONE PROPIONATE 0.05% NA SPR 16 GM BTL (*BKC) 2 SPRAY NASAL (09:25)
[2022-12-31] MEDS: SODIUM CHLORIDE 0.9% IV 1,000 ML 100 ML IV CONT ×2 (09:30→21:35)
--- NOTE | 2022-12-31 10:35 | PC.NURSE ---
Updated daughter on lab results. RN will attempt to contact hospitalist to update family on EGD and Colonoscopy results.
--- NOTE | 2022-12-31 11:00 | PC.NURSE ---
Dr. Ferguson at bedside, updating family.
[2022-12-31 11:55] LABS: Glucose Point of Care 115 mg/dl (65-105)
[2022-12-31 16:05] LABS: Glucose Point of Care 81 mg/dl (65-105)
--- NOTE | 2022-12-31 16:23 | PM.IMPN ---
Progress Note: A&P Assessment and Plan (1) Atrial fibrillation: Qualifiers: Atrial fibrillation type: unspecified Qualified Code(s): I48.91 - Unspecified atrial fibrillation Code(s): I48.91 - Unspecified atrial fibrillation Status: Acute (2) Dementia: Code(s): F03.90 - Unspecified dementia, unspecified severity, without behavioral disturbance, psychotic disturbance, mood disturbance, and anxiety Status: Acute (3) Anemia: Qualifiers: Anemia type: unspecified type Qualified Code(s): D64.9 - Anemia, unspecified Code(s): D64.9 - Anemia, unspecified Status: Acute Plan 72F w/ PMH NIDDM w/ peripheral neuropathy, HTN, dementia, hypothyroidism, GERD, urge incontinence, LIVE, CAD s/p CABG, 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 - 12/31 reports feeling much better. she did receive 1 unit prbc during her stay 2) paroxysmal a fib - cardiology consulting. she is on metoprolol and amiodarone with good control. it was decided she would be on aspirin only, no AC in light of her high fall risk - cont tele monitoring 3) UTI - received ABX. no s/s sepsis 4) dementia - stable, confused at times 5) acute anemia w/ history of LIVE - EGD and colonoscopy performed 12/30 - demonstrated severe gastritis, schatzkis ring, hiatal hernia, and diverticulosis. f/u schatzski ring biopsy. no evidence of acute bleed. cont protonix, counseled to avoid NSAIDS outside of the agreed upon aspirin. benefits and risks discussed again to which the pt and daughter agree to - received 2 units PRBC on 12/28. HB up from 6.7 to 10.0 on 12/29 but downtrending since then slowly. continue daily monitoring. - thrombocytopenia - could be 2/2 to blood loss or dilutional. ctm. reported she was going to receive lovenox on admission but no where in the MAR can I or nurse Addison find she received heparin products. 6) SCC of tongue resected in 2001, recurrent lesions - has a few lesions on dorsum of tongue. pt and daughter request ENT consult, they were going to see one as outpatient as ordered by oncology. she has lost a lot of weight in the past 6 months. 7) NIDDM - accuchecks and ISS FEN: cardiac diabetic diet, saline lock IV GI prophylaxis: protonix DVT prophylaxis: SCDs only Lines: pIV Code Status: Full Code Dispo: stable. eventually would return to group home longterm resident but with rehab as well More than 35 minutes spent on chart review, patient interaction and assessment and plan. Subjective Date/time seen: 12/31/22 16:23 Interval history: NAOE. patient is with daughter, Sarah. she reports she is quite satisfied with the treatment so far, the daughter Sarah is concerned about the recurrence of squamous cell carcinoma, first treated with resection, chemo and radiation in 2001. she requests ENT evaluation. otherwise the patient has no complaints Review of Systems Review of Systems: All systems reviewed & are unremarkable except as noted in HPI and below Exam Const: General: comfortable and no acute distress Eyes: Pupils: Equal, round and reactive pupils present Neck: Neck: supple Resp: Effort & Inspection: normal respiratory effort Auscultation: clear to auscultation bilaterally Cardio: Rate: regular rate Rhythm: regular rhythm Heart sounds: no gallops, no murmurs and no rubs GI: Inspection: non-distended GI Palp: Yes Soft to palpation and No Tenderness to palpation present (GI) Auscultation: normal bowel sounds Extrem: General: no edema Objective Data Vital Signs Vital Signs: Vital Signs - 24 hr 12/30/22 17:45 12/30/22 20:52 12/30/22 21:38 Temperature 97.6 F Pulse Rate 86 63 65 Res
--- NOTE | 2022-12-31 17:35 | PC.NURSE ---
Dr. Barboza contacted and notified of consult by Dr. Ferguson.
[2022-12-31 19:59] LABS: Glucose Point of Care 87 mg/dl (65-105)
[2022-12-31] MEDS: METOPROLOL TARTRATE 12.5 MG TABLET PO (21:34)
[2022-12-31 23:17] LABS: Glucose Point of Care 66 mg/dl (65-105)
[2022-12-31] MEDS: DEXTROSE 50% 25 GM/50 ML SYRINGE IV PUSH (23:21)
[2022-12-31 23:52] LABS: Glucose Point of Care 118 mg/dl (65-105)
[2023-01-01] VITALS (19 sets, daily range): BP systolic 120–160; BP diastolic 51–72; PULSE 60–125; RESP 12–18; TEMP 36.6–37.4; O2SAT 93–96
[2023-01-01 01:16] LABS: Glucose Point of Care 89 mg/dl (65-105)
[2023-01-01] MEDS: DEXTROSE 5%/0.9% SOD CHL 1,000 ML 100 ML IV CONT ×3 (01:41→21:18)
[2023-01-01 04:36] LABS: Glucose Point of Care 103 mg/dl (65-105)
[2023-01-01 05:42] LABS: Basophils Percent Auto 0.6 % (0.2-1.2); Eosinophils Absolute Auto 0.1 K/mm3 (0-0.3); Eosinophils Percent Auto 2.5 % (0-4.4); Hematocrit 27.8 % (37.0-47.0); Hemoglobin 8.3 g/dL (12.0-15.0); Immature Granulocyte Absolute 0.03 K/mm3 (0.00-0.031); Immature Granulocyte Percent A 0.6 % (0-0.5); Lymphocytes Absolute Auto 0.46 K/mm3 (0.9-3.2); Lymphocytes Percent Auto 9.6 % (18.3-44.2); Mean Corpuscular HGB Conc 29.9 g/dl (32-36); Mean Corpuscular Hemoglobin 26.6 pg (26-34); Mean Corpuscular Volume 89.1 fl (80-100); Mean Platelet Volume 11.5 fl (7.4-10.4); Monocytes Absolute Auto 0.6 K/mm3 (0.1-0.6); Monocytes Percent Auto 12.4 % (2.6-8.5); Neutrophils Absolute Auto 3.5 K/mm3 (1.3-6.7); Neutrophils Percent Auto 74.3 % (45.5-73.1); Platelet Count Result 116 k/mm3 (150-375); Red Blood Count 3.12 M/mm3 (4.2-5.4); Red Cell Distribution Width 17.6 % (11.5-14.5); White Blood Count 4.8 K/mm3 (4.5-10.0)
[2023-01-01 06:00] LABS: Anion Gap 4 mmol/L (8-16); Blood Urea Nitrogen 8 mg/dL (7-17); Calcium 8.2 mg/dL (8.4-10.2); Carbon Dioxide 22 mmol/L (22-30); Chloride 109 mmol/L (98-107); Estimated CRCL calculation 44 ml/min; Estimated Glomerular Filt Rate > 60; Glucose 117 mg/dL (65-110); Potassium 3.7 mmol/L (3.4-5.0); Sodium 135 mmol/L (137-145)
[2023-01-01] MEDS: LEVOTHYROXINE SODIUM 50 MCG TABLET PO (06:36)
[2023-01-01 07:09] LABS: Anisocytosis 2+ (NORMAL); Ovalocytes 1+ (NORMAL); Poikilocytosis 1+ (NORMAL); Schistocytes Rare (NORMAL)
--- NOTE | 2023-01-01 08:02 | PM.PNCARD ---
Progress Note: A&P Assessment and Plan (1) Paroxysmal atrial fibrillation: Code(s): I48.0 - Paroxysmal atrial fibrillation Status: Acute Assessment and Plan: Back in Sinus rhythm. Probably due to UTI, anemia, age. [id number]. On aspirin due to high risk for falls in past and had remote episode only. 12/29/22 Echo: EF 65-70%, mild LVH, grade I diastolic dysfunction (E/e' 5), mild LAE, trace MR/TR, RVSP 42 mmHg. Started 12/29/22 Amiodarone 200 mg PO BID x 1 week then 200 mg daily. Stop Metoprolol Tartate 12.5 mg PO BID. (2) Acute UTI: Code(s): N39.0 - Urinary tract infection, site not specified Status: Acute Assessment and Plan: On antibiotics. (3) CAD (coronary artery disease), autologous vein bypass graft: Code(s): I25.810 - Atherosclerosis of coronary artery bypass graft(s) without angina pectoris Status: Acute Assessment and Plan: Stable. (4) HTN (hypertension): Code(s): I10 - Essential (primary) hypertension Status: Acute Assessment and Plan: Stable. (5) Hyperlipidemia: Code(s): E78.5 - Hyperlipidemia, unspecified Status: Acute Assessment and Plan: Was on Atorvastatin, Resume that. (6) Anemia: Qualifiers: Anemia type: unspecified type Qualified Code(s): D64.9 - Anemia, unspecified Code(s): D64.9 - Anemia, unspecified Status: Acute Assessment and Plan: 12/28/22 2 units PRBC transfusion. Workup per hospitalist and GI service. Endoscopies done with no evidence of bleeding source. Hb trending down. Subjective Date/time seen: 01/01/23 08:02 Interval history: Denies chest pain or sob. Exam Const: General: cooperative, healthy appearing and comfortable Orientation/consciousness: oriented to person Resp: Auscultation: clear to auscultation bilaterally, no crackles, no rales, no rhonchi and no wheezes Cardio: Rate: regular rate Rhythm: regular rhythm Heart sounds: no murmurs Peripheral pulses: dorsalis pedis present Neuro: General: oriented to person Extrem: Right lower extremity: no edema Left lower extremity: no edema Objective Data Vital Signs Vital Signs: Vital Signs - 24 hr 12/31/22 09:14 12/31/22 09:16 12/31/22 10:00 Temperature Pulse Rate 55 L 54 L 59 L Respiratory Rate Blood Pressure Pulse Oximetry Oxygen Delivery 12/31/22 11:43 12/31/22 12:00 12/31/22 12:00 Temperature 98.9 F Pulse Rate 63 63 Respiratory Rate 18 Blood Pressure 121/59 L Pulse Oximetry 96 93 Oxygen Delivery Room Air 12/31/22 14:00 12/31/22 15:42 12/31/22 16:00 Temperature 97.9 F Pulse Rate 63 120 H Respiratory Rate 20 Blood Pressure 140/51 L Pulse Oximetry 98 94 Oxygen Delivery Room Air 12/31/22 16:00 12/31/22 18:00 12/31/22 20:10 Temperature 97.8 F Pulse Rate 60 64 65 Respiratory Rate 16 Blood Pressure 125/57 L Pulse Oximetry 96 Oxygen Delivery 12/31/22 21:33 12/31/22 21:34 12/31/22 23:33 Temperature 97.8 F Pulse Rate 80 80 64 Respiratory Rate 18 Blood Pressure 122/54 L Pulse Oximetry 96 Oxygen Delivery 12/31/22 20:00 01/01/23 00:00 12/31/22 20:00 Temperature Pulse Rate 69 Respiratory Rate Blood Pressure Pulse Oximetry Oxygen Delivery Room Air Room Air 12/31/22 22:00 01/01/23 00:00 01/01/23 02:00 Temperature Pulse Rate 69 63 66 Respiratory Rate Blood Pressure Pulse Oximetry Oxygen Delivery 12/31/22 22:10 01/01/23 04:57 01/01/23 07:24 Temperature 97.8 F 98.8 F Pulse Rate 66 63 Respiratory Rate 18 14 Blood Pressure 120/58 L 124/51 L Pulse Oximetry 96 94 96 Oxygen Delivery Room Air 01/01/23 04:00 01/01/23 04:00 01/01/23 06:00 Temperature Pulse Rate 61 61 Respiratory Rate Blood Pressure Pulse Oximetry Oxygen Delivery Room Air Intake/Output Intake/Output: Intake & Output 12/29/22 12/30/22 12/31/22
[2023-01-01 08:08] LABS: Glucose Point of Care 130 mg/dl (65-105)
--- NOTE | 2023-01-01 10:12 | WPDANESPN ---
Anes - Prog Note Post-Op Date/Time: 01/01/23 10:12 Cardiovascular status: normal Respiratory status: normal Airway patency: baseline Mental status: baseline Post-Op hydration status: normal Vital Signs: Last Vital Signs Temp 98.8 F 01/01/23 07:24 Pulse 63 01/01/23 07:24 Resp 14 01/01/23 07:24 BP 124/51 L 01/01/23 07:24 Pulse Ox 96 01/01/23 07:24 O2 Del Method Room Air 01/01/23 04:00 Pain Score (VAS): 0 I/O: Intake & Output 12/31/22 01/01/23 01/01/23 23:59 07:59 15:59 Intake Total 2020 1170 240 Output Total 950 300 Balance 1070 870 240 Laboratory Tests 01/01/23 05:24 01/01/23 05:24 12/31/22 12/31/22 12/31/22 11:42 15:45 19:39 WBC RBC Hgb Hct MCV MCH MCHC RDW Plt Count MPV Immature Gran % (Auto) Neut % (Auto) Lymph % (Auto) [place] % (Auto) Eos % (Auto) Baso % (Auto) Lymph # (Auto) [place] # (Auto) Eos # (Auto) Baso # (Auto) Abs Immat Gran (auto) Absolute Neuts (auto) Absolute Nucleated RBC Nucleated RBC % Platelet Estimate Poikilocytosis Anisocytosis Ovalocytes Schistocytes Sodium Potassium Chloride Carbon Dioxide Anion Gap BUN Creatinine Estim Creat Clear Calc Estimated GFR Glucose POC Capillary Glucose 115 H 81 87 Calcium 12/31/22 12/31/22 01/01/23 23:12 23:49 01:13 WBC RBC Hgb Hct MCV MCH MCHC RDW Plt Count MPV Immature Gran % (Auto) Neut % (Auto) Lymph % (Auto) [place] % (Auto) Eos % (Auto) Baso % (Auto) Lymph # (Auto) [place] # (Auto) Eos # (Auto) Baso # (Auto) Abs Immat Gran (auto) Absolute Neuts (auto) Absolute Nucleated RBC Nucleated RBC % Platelet Estimate Poikilocytosis Anisocytosis Ovalocytes Schistocytes Sodium Potassium Chloride Carbon Dioxide Anion Gap BUN Creatinine Estim Creat Clear Calc Estimated GFR Glucose POC Capillary Glucose 66 118 H 89 Calcium 01/01/23 01/01/23 01/01/23 04:33 05:24 07:27 WBC 4.8 RBC 3.12 L Hgb 8.3 L Hct 27.8 L MCV 89.1 MCH 26.6 MCHC 29.9 L RDW 17.6 H Plt Count 116 L MPV 11.5 H Immature Gran % (Auto) 0.6 H Neut % (Auto) 74.3 H Lymph % (Auto) 9.6 L [place] % (Auto) 12.4 H Eos % (Auto) 2.5 Baso % (Auto) 0.6 Lymph # (Auto) 0.46 L [place] # (Auto) 0.6 Eos # (Auto) 0.1 Baso # (Auto) 0.0 Abs Immat Gran (auto) 0.03 Absolute Neuts (auto) 3.5 Absolute Nucleated RBC 0.0 Nucleated RBC % 0.0 Platelet Estimate Slightly decreased Poikilocytosis 1+ Anisocytosis 2+ Ovalocytes 1+ Schistocytes Rare Sodium 135 L Potassium 3.7 Chloride 109 H Carbon Dioxide 22 Anion Gap 4 L BUN 8 Creatinine 0.70 Estim Creat Clear Calc 44 Estimated GFR > 60 Glucose 117 H POC Capillary Glucose 103 130 H Calcium 8.2 L Patient Feedback: Patient satisfied with anesthetic care.
[2023-01-01] MEDS: FLUTICASONE PROPIONATE 0.05% NA SPR 16 GM BTL (*BKC) 2 SPRAY NASAL (10:45)
[2023-01-01 11:42] LABS: Glucose Point of Care 174 mg/dl (65-105)
--- NOTE | 2023-01-01 13:10 | PM.IMPN ---
Progress Note: A&P Assessment and Plan (1) Atrial fibrillation: Qualifiers: Atrial fibrillation type: unspecified Qualified Code(s): I48.91 - Unspecified atrial fibrillation Code(s): I48.91 - Unspecified atrial fibrillation Status: Acute (2) Dementia: Code(s): F03.90 - Unspecified dementia, unspecified severity, without behavioral disturbance, psychotic disturbance, mood disturbance, and anxiety Status: Acute (3) Anemia: Qualifiers: Anemia type: unspecified type Qualified Code(s): D64.9 - Anemia, unspecified Code(s): D64.9 - Anemia, unspecified Status: Acute Plan 72F w/ PMH NIDDM w/ peripheral neuropathy, HTN, dementia, hypothyroidism, GERD, urge incontinence, LIVE, CAD s/p CABG, 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 - 12/31 reports feeling much better. she did receive 1 unit prbc during her stay 2) paroxysmal a fib - cardiology consulting. she is on metoprolol and amiodarone with good control. it was decided she would be on aspirin only, no AC in light of her high fall risk - cont tele monitoring 3) UTI - received ABX. no s/s sepsis 4) dementia - stable, A&Ox2 as a baseline 5) acute anemia w/ history of LIVE - EGD and colonoscopy performed 12/30 - demonstrated severe gastritis, schatzkis ring, hiatal hernia, and diverticulosis. f/u schatzski ring biopsy. no evidence of acute bleed. cont protonix, counseled to avoid NSAIDS outside of the agreed upon aspirin. benefits and risks discussed again to which the pt and daughter agree to - received 2 units PRBC on 12/28. HB up from 6.7 to 10.0 on 12/29 but downtrending since then slowly. continue daily monitoring. - thrombocytopenia - could be 2/2 to blood loss or dilutional. ctm. reported she was going to receive lovenox on admission but no where in the MAR can I or nurse Addison find she received heparin products. 6) SCC of tongue resected in 2001, recurrent lesions - has a few lesions on dorsum of tongue. pt and daughter request ENT consult, they were going to see one as outpatient as ordered by oncology. she has lost a lot of weight in the past 6 months. - 12/31 ENT consulted, reported they would not see patient because they don't have the right equipment to perform biopsies 7) NIDDM - accuchecks and ISS FEN: cardiac diabetic diet, saline lock IV GI prophylaxis: protonix DVT prophylaxis: SCDs only Lines: pIV Code Status: Full Code Dispo: stable. 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 ctm hemoglobin More than 35 minutes spent on chart review, patient interaction and assessment and plan. Subjective Date/time seen: 01/01/23 13:10 Interval history: NAOE. patient reports feeling better today. she denies chest pain. she is sitting up in bed preparing to eat lunch. I informed her ENT would not be able to come and she was content with following up as an outpatient as originally scheduled Review of Systems Review of Systems: All systems reviewed & are unremarkable except as noted in HPI and below Exam Const: General: comfortable and no acute distress Eyes: Pupils: Equal, round and reactive pupils present Other: edentulous Neck: Neck: supple Resp: Effort & Inspection: normal respiratory effort Auscultation: clear to auscultation bilaterally, no crackles, no rales and no rhonchi Cardio: Rate: regular rate Rhythm: regular rhythm Heart sounds: no gallops, no murmurs and no rubs GI: GI Palp: Yes Soft to palpation and No Tenderness to palpation present (GI) Extrem: General: no edema Objective Data Vital Signs Vital Signs: Vital Signs - 24 hr 12/31/22 14:00 12/31/22 15:42 12/31/22 16:00
[2023-01-01 16:14] LABS: Glucose Point of Care 190 mg/dl (65-105)
[2023-01-01 20:06] LABS: Glucose Point of Care 254 mg/dl (65-105)
[2023-01-01] MEDS: AMIODARONE HCL 200 MG TABLET PO (20:29)
[2023-01-01] MEDS: FERROUS SULFATE 325 MG TABLET DR PO (20:29)
[2023-01-01] MEDS: INSULIN ASPART (*BKC) 100 UNITS/ML SUB-Q (20:29)
[2023-01-01] MEDS: ACETAMINOPHEN 325 MG TABLET 650 MG PO (20:33)
[2023-01-02] VITALS (16 sets, daily range): BP systolic 123–154; BP diastolic 58–65; PULSE 29–125; RESP 16–24; TEMP 36.6–37.7; O2SAT 90–99
[2023-01-02 05:19] LABS: Hematocrit 31.3 % (37.0-47.0); Hemoglobin 9.5 g/dL (12.0-15.0); Mean Corpuscular HGB Conc 30.4 g/dl (32-36); Mean Corpuscular Hemoglobin 26.4 pg (26-34); Mean Corpuscular Volume 86.9 fl (80-100); Mean Platelet Volume 10.5 fl (7.4-10.4); Platelet Count Result 105 k/mm3 (150-375); Red Cell Distribution Width 17.2 % (11.5-14.5); White Blood Count 5.6 K/mm3 (4.5-10.0)
[2023-01-02 05:31] LABS: Anion Gap 3 mmol/L (8-16); Blood Urea Nitrogen 4 mg/dL (7-17); Calcium 8.4 mg/dL (8.4-10.2); Carbon Dioxide 25 mmol/L (22-30); Chloride 110 mmol/L (98-107); Estimated CRCL calculation 57 ml/min; Estimated Glomerular Filt Rate > 60; Glucose 222 mg/dL (65-110); Potassium 3.5 mmol/L (3.4-5.0); Sodium 138 mmol/L (137-145)
[2023-01-02] MEDS: LEVOTHYROXINE SODIUM 50 MCG TABLET PO (06:19)
[2023-01-02] MEDS: DEXTROSE 5%/0.9% SOD CHL 1,000 ML 100 ML IV CONT ×2 (07:21→17:29)
--- NOTE | 2023-01-02 07:48 | PM.PNCARD ---
Progress Note: A&P Assessment and Plan (1) Paroxysmal atrial fibrillation: Code(s): I48.0 - Paroxysmal atrial fibrillation Status: Acute Assessment and Plan: Back in Sinus rhythm. Probably due to UTI, anemia, age. [id number]. On aspirin due to high risk for falls in past and had remote episode only. 12/29/22 Echo: EF 65-70%, mild LVH, grade I diastolic dysfunction (E/e' 5), mild LAE, trace MR/TR, RVSP 42 mmHg. Started 12/29/22 Amiodarone 200 mg PO BID x 1 week then 200 mg daily. Restart Metoprolol Tartate 12.5 mg PO BID to suppress ectopics. (2) Acute UTI: Code(s): N39.0 - Urinary tract infection, site not specified Status: Acute Assessment and Plan: On antibiotics. (3) CAD (coronary artery disease), autologous vein bypass graft: Code(s): I25.810 - Atherosclerosis of coronary artery bypass graft(s) without angina pectoris Status: Acute Assessment and Plan: Stable. (4) HTN (hypertension): Code(s): I10 - Essential (primary) hypertension Status: Acute Assessment and Plan: Stable. (5) Hyperlipidemia: Code(s): E78.5 - Hyperlipidemia, unspecified Status: Acute Assessment and Plan: Was on Atorvastatin, Resume that. (6) Anemia: Qualifiers: Anemia type: unspecified type Qualified Code(s): D64.9 - Anemia, unspecified Code(s): D64.9 - Anemia, unspecified Status: Acute Assessment and Plan: 12/28/22 2 units PRBC transfusion. Workup per hospitalist and GI service. Endoscopies done with no evidence of bleeding source. Hb trending down. Subjective Date/time seen: 01/02/23 07:48 Interval history: Denies chest pain or sob. Exam Const: General: cooperative, healthy appearing and comfortable Orientation/consciousness: oriented to person Resp: Auscultation: clear to auscultation bilaterally, no crackles, no rales, no rhonchi and no wheezes Cardio: Rate: regular rate Rhythm: regular rhythm Heart sounds: no murmurs Peripheral pulses: dorsalis pedis present Neuro: General: oriented to person Extrem: Right lower extremity: no edema Left lower extremity: no edema Objective Data Vital Signs Vital Signs: Vital Signs - 24 hr 01/01/23 11:14 01/01/23 15:38 01/01/23 08:00 Temperature 99.2 F 99.4 F Pulse Rate 65 71 Respiratory Rate 18 12 Blood Pressure 127/58 L 160/63 H Pulse Oximetry 95 95 Oxygen Delivery Room Air 01/01/23 12:00 01/01/23 16:00 01/01/23 08:00 Temperature Pulse Rate 60 Respiratory Rate Blood Pressure Pulse Oximetry Oxygen Delivery Room Air Room Air 01/01/23 10:00 01/01/23 12:00 01/01/23 14:00 Temperature Pulse Rate 74 80 74 Respiratory Rate Blood Pressure Pulse Oximetry Oxygen Delivery 01/01/23 16:00 01/01/23 18:00 01/01/23 20:29 Temperature Pulse Rate 68 76 79 Respiratory Rate Blood Pressure Pulse Oximetry Oxygen Delivery 01/01/23 19:30 01/01/23 20:00 01/01/23 20:00 Temperature 97.8 F Pulse Rate 81 90 Respiratory Rate 18 Blood Pressure 160/71 H Pulse Oximetry 93 Oxygen Delivery Room Air 01/01/23 22:00 01/01/23 22:58 01/02/23 00:00 Temperature 97.8 F Pulse Rate 125 H 121 H Respiratory Rate 18 Blood Pressure 120/72 Pulse Oximetry 93 Oxygen Delivery Room Air 01/02/23 00:00 01/02/23 02:00 01/02/23 04:00 Temperature 98.1 F Pulse Rate 125 H 69 70 Respiratory Rate 16 Blood Pressure 148/65 H Pulse Oximetry 96 Oxygen Delivery 01/02/23 04:00 01/02/23 04:00 01/02/23 06:00 Temperature Pulse Rate 73 74 Respiratory Rate Blood Pressure Pulse Oximetry Oxygen Delivery Room Air Intake/Output Intake/Output: Intake & Output 12/30/22 12/31/22 01/01/23 01/02/23 23:59 23:59 23:59 23:59 Intake Total 3700 3760 3621 1200 Output Total 500 1350 1400 950 Balance 3200 2410 2221 250 Meds/Results Medications: Active Medicat
--- NOTE | 2023-01-02 08:29 | PCOTNOTE ---
Attempted to see for OT evaluation. Assisted patient to EOB with MAX assist. She reports she is feeling sick and laid herself back down. Declined attempting to transfer to a chair at this time. Will continue to attempt.
[2023-01-02 08:30] LABS: Glucose Point of Care 214 mg/dl (65-105)
[2023-01-02] MEDS: ESCITALOPRAM OXALATE 10 MG TABLET 20 MG PO (09:07)
[2023-01-02] MEDS: VENLAFAXINE HCL XR 75 MG CAP.ER.24H 225 MG PO (09:07)
[2023-01-02] MEDS: AMIODARONE HCL 200 MG TABLET PO ×2 (09:08→20:23)
[2023-01-02] MEDS: ASPIRIN 81 MG ENTERIC TABLET PO (09:08)
[2023-01-02] MEDS: MIRABEGRON 50 MG ER TABLET PO (09:08)
[2023-01-02] MEDS: GABAPENTIN 300 MG CAPSULE PO (09:08)
[2023-01-02] MEDS: FERROUS SULFATE 325 MG TABLET DR BY MOUTH (09:08)
[2023-01-02] MEDS: PANTOPRAZOLE 40 MG TABLET PO (09:08)
[2023-01-02] MEDS: METOPROLOL TARTRATE 12.5 MG TABLET PO ×2 (09:08→20:25)
[2023-01-02] MEDS: FLUTICASONE PROPIONATE 0.05% NA SPR 16 GM BTL (*BKC) 2 SPRAY NASAL (09:08)
[2023-01-02] MEDS: INSULIN ASPART (*BKC) 100 UNITS/ML SUB-Q ×3 (09:17→20:25)
--- NOTE | 2023-01-02 10:34 | PCNFU ---
Nutrition Follow-Up Complete: Inadequate oral intake related to loss of appetite, mouth pain, altered mental status as evidenced by report of poor intake for several weeks, mouth pain, weight loss -15%/1 year goal: Improve PO intake to at least 50% meals and supplements Patient has limited progress with goal. We will continue current goal. Pt current nutrition is Soft and Bite Sized, Level 6. Nutrition recommendation:Nutritional Ice Cream BID Last recorded weight is 60.4 kg, up from 57.1 kg on admit. Bowel Motility:+Bm reported 12/30 Labs Reviewed:Glu 222, Cr 0.6,BUN 4 Meds Noted:Effexor MVI, Synthroid,Lexapro Skin: WNL Additional Notes: Patient has EGD/colonoscopy on 12/30-gastritis noted. Diet order was advanced, oral intake remains poor 10-75% of meals. Patient is recieving ensure compact BID providing 220 kcals and 9 gms protein. Recommend: Nutritional Ice Cream BID for additional 300 kcals and 9 gms protein. PO intake encouraged. Monitoring intakes, weight, labs, supplement tolerance, plan of care Follow up in 5 days
[2023-01-02 11:32] LABS: Glucose Point of Care 200 mg/dl (65-105)
--- NOTE | 2023-01-02 15:00 | PM.IMPN ---
Progress Note: A&P Assessment and Plan (1) Paroxysmal atrial fibrillation: Code(s): I48.0 - Paroxysmal atrial fibrillation Status: Acute (2) Atrial fibrillation: Qualifiers: Atrial fibrillation type: unspecified Qualified Code(s): I48.91 - Unspecified atrial fibrillation Code(s): I48.91 - Unspecified atrial fibrillation Status: Acute (3) Acute UTI: Code(s): N39.0 - Urinary tract infection, site not specified Status: Acute (4) Weakness: Code(s): R53.1 - Weakness Status: Acute (5) Anemia: Qualifiers: Anemia type: unspecified type Qualified Code(s): D64.9 - Anemia, unspecified Code(s): D64.9 - Anemia, unspecified Status: Acute Plan 72F w/ PMH NIDDM w/ peripheral neuropathy, HTN, dementia, hypothyroidism, GERD, urge incontinence, LIVE, CAD s/p CABG, 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 Admitted on 12/28 1) weakness - multifactorial, she is a halfway correction resident and likely should go back there but with rehab. - 12/31 - 01/02 reports feeling much better. she did receive 1 unit prbc during her stay. ctm 2) paroxysmal a fib - cardiology consulting. she is on metoprolol and amiodarone with good control. admiodarone 200mg po bid x1 week then 200mg daily. it was decided she would be on aspirin only, no AC in light of her high fall risk - cont tele monitoring. sinus rhythm now 3) UTI - received ABX. no s/s sepsis 4) dementia - stable, A&Ox2 as a baseline 5) acute anemia w/ history of LIVE - EGD and colonoscopy performed 12/30 - demonstrated severe gastritis, schatzkis ring, hiatal hernia, and diverticulosis. f/u schatzski ring biopsy. no evidence of acute bleed. cont protonix, counseled to avoid NSAIDS outside of the agreed upon aspirin. benefits and risks discussed again to which the pt and daughter agree to - received 2 units PRBC on 12/28. HB has since stabilized continue daily monitoring. - thrombocytopenia - could be 2/2 to blood loss or dilutional. ctm. reported she was going to receive lovenox on admission but no where in the MAR can I or nurse Addison find she received heparin products. - 01/02 consult oncology for worsening thrombocytopenia and evaluation of tongue lesions 6) SCC of tongue resected in 2001, recurrent lesions - has a few lesions on dorsum of tongue. pt and daughter request ENT consult, they were going to see one as outpatient as ordered by oncology. she has lost a lot of weight in the past 6 months. - 12/31 ENT consulted, reported they would not see patient because they don't have the right equipment to perform biopsies - 01/02 oncology consult 7) NIDDM - accuchecks and ISS FEN: cardiac diabetic diet, saline lock IV GI prophylaxis: protonix DVT prophylaxis: SCDs only, consider restart lovenox tomorrow Lines: pIV Code Status: Full Code Dispo: stable. return to her halfway correction but with acute rehab. ctm hemoglobin. downgrade to [place] More than 35 minutes spent on chart review, patient interaction and assessment and plan. Subjective Date/time seen: 01/02/23 15:00 Interval history: NAOE. pt is without complaints. she is pleasantly confused as her usual Review of Systems Review of Systems: All systems reviewed & are unremarkable except as noted in HPI and below Exam Const: General: comfortable and no acute distress Eyes: Pupils: Equal, round and reactive pupils present Neck: Neck: supple Resp: Effort & Inspection: normal respiratory effort Auscultation: clear to auscultation bilaterally Cardio: Rate: regular rate Rhythm: regular rhythm GI: GI Palp: Yes Soft to palpation Extrem: General: no edema Objective Data Vital Signs Vital Signs: Vital Signs - 24 hr 01/01/23 15:38 01/01/23 16:00 01/01/23 16:00 Temperat
[2023-01-02 16:53] LABS: Glucose Point of Care 246 mg/dl (65-105)
[2023-01-02 20:12] LABS: Glucose Point of Care 208 mg/dl (65-105)
[2023-01-02] MEDS: FERROUS SULFATE 325 MG TABLET DR PO (20:24)
[2023-01-03] VITALS (10 sets, daily range): BP systolic 116–157; BP diastolic 51–69; PULSE 65–82; RESP 16–22; TEMP 36.4–37.2; O2SAT 90–94
[2023-01-03] MEDS: DEXTROSE 5%/0.9% SOD CHL 1,000 ML 100 ML IV CONT (02:59)
[2023-01-03 05:19] LABS: Basophils Percent Auto 0.4 % (0.2-1.2); Eosinophils Absolute Auto 0.1 K/mm3 (0-0.3); Eosinophils Percent Auto 2.2 % (0-4.4); Hematocrit 27.7 % (37.0-47.0); Hemoglobin 8.4 g/dL (12.0-15.0); Immature Granulocyte Absolute 0.04 K/mm3 (0.00-0.031); Immature Granulocyte Percent A 0.9 % (0-0.5); Lymphocytes Absolute Auto 0.41 K/mm3 (0.9-3.2); Lymphocytes Percent Auto 8.8 % (18.3-44.2); Mean Corpuscular HGB Conc 30.3 g/dl (32-36); Mean Corpuscular Hemoglobin 26.3 pg (26-34); Mean Corpuscular Volume 86.6 fl (80-100); Mean Platelet Volume 11.3 fl (7.4-10.4); Monocytes Absolute Auto 0.5 K/mm3 (0.1-0.6); Monocytes Percent Auto 10.8 % (2.6-8.5); Neutrophils Absolute Auto 3.6 K/mm3 (1.3-6.7); Neutrophils Percent Auto 76.9 % (45.5-73.1); Platelet Count Result 116 k/mm3 (150-375); Red Cell Distribution Width 17.6 % (11.5-14.5); White Blood Count 4.7 K/mm3 (4.5-10.0)
[2023-01-03 05:37] LABS: Anion Gap 4 mmol/L (8-16); Blood Urea Nitrogen 4 mg/dL (7-17); Carbon Dioxide 24 mmol/L (22-30); Chloride 107 mmol/L (98-107); Estimated CRCL calculation 59 ml/min; Estimated Glomerular Filt Rate > 60; Glucose 216 mg/dL (65-110); Potassium 3.1 mmol/L (3.4-5.0); Sodium 135 mmol/L (137-145)
[2023-01-03 05:49] LABS: Procalcitonin 0.2 ng/mL
[2023-01-03] MEDS: LEVOTHYROXINE SODIUM 50 MCG TABLET PO (05:56)
--- NOTE | 2023-01-03 07:48 | PM.PNCARD ---
Progress Note: A&P Assessment and Plan (1) Paroxysmal atrial fibrillation: Code(s): I48.0 - Paroxysmal atrial fibrillation Status: Acute Assessment and Plan: Back in Sinus rhythm. Probably due to UTI, anemia, age. [id number] 6. On aspirin due to high risk for falls in past and had remote episode only. 12/29/22 Echo: EF 65-70%, mild LVH, grade I diastolic dysfunction (E/e' 5), mild LAE, trace MR/TR, RVSP 42 mmHg. Started 12/29/22 Amiodarone 200 mg PO BID x 1 week then 200 mg daily. On Metoprolol Tartate 12.5 mg PO BID to suppress ectopics. Will sign off. Please call with any questions. Upon discharge have her f/u with me in 1-2 weeks. (2) Acute UTI: Code(s): N39.0 - Urinary tract infection, site not specified Status: Acute Assessment and Plan: On antibiotics. (3) CAD (coronary artery disease), autologous vein bypass graft: Code(s): I25.810 - Atherosclerosis of coronary artery bypass graft(s) without angina pectoris Status: Acute Assessment and Plan: Stable. (4) HTN (hypertension): Code(s): I10 - Essential (primary) hypertension Status: Acute Assessment and Plan: Stable. (5) Hyperlipidemia: Code(s): E78.5 - Hyperlipidemia, unspecified Status: Acute Assessment and Plan: On Atorvastatin. (6) Anemia: Qualifiers: Anemia type: unspecified type Qualified Code(s): D64.9 - Anemia, unspecified Code(s): D64.9 - Anemia, unspecified Status: Acute Assessment and Plan: 12/28/22 2 units PRBC transfusion. Workup per hospitalist and GI service. Endoscopies done with no evidence of bleeding source. Hb trending down. Subjective Date/time seen: 01/03/23 07:48 Interval history: Denies chest pain or sob. Exam Const: General: cooperative, healthy appearing and comfortable Orientation/consciousness: oriented to person Resp: Auscultation: clear to auscultation bilaterally, no crackles, no rales, no rhonchi and no wheezes Cardio: Rate: regular rate Rhythm: regular rhythm Heart sounds: no murmurs Peripheral pulses: dorsalis pedis present Neuro: General: oriented to person Extrem: Right lower extremity: no edema Left lower extremity: no edema Objective Data Vital Signs Vital Signs: Vital Signs - 24 hr 01/02/23 08:00 01/02/23 08:00 01/02/23 08:00 Temperature 99.1 F Pulse Rate 76 74 Respiratory Rate 24 H Blood Pressure 154/59 H Pulse Oximetry 90 Oxygen Delivery Room Air 01/02/23 10:00 01/02/23 11:05 01/02/23 11:44 Temperature 99.9 F H Pulse Rate 74 29 L Respiratory Rate 16 Blood Pressure 123/59 L Pulse Oximetry 90 Oxygen Delivery Room Air 01/02/23 12:00 01/02/23 12:00 01/02/23 14:00 Temperature Pulse Rate 66 65 Respiratory Rate Blood Pressure Pulse Oximetry Oxygen Delivery Room Air 01/02/23 15:29 01/02/23 16:00 01/02/23 19:37 Temperature 99 F 97.9 F Pulse Rate 68 67 70 Respiratory Rate 20 18 Blood Pressure 135/62 144/58 H Pulse Oximetry 93 99 Oxygen Delivery 01/02/23 19:58 01/02/23 20:23 01/02/23 20:25 Temperature Pulse Rate 70 77 77 Respiratory Rate 18 Blood Pressure Pulse Oximetry 99 Oxygen Delivery Room Air 01/02/23 20:00 01/03/23 00:00 01/03/23 00:00 Temperature 98.3 F Pulse Rate 77 71 70 Respiratory Rate 18 Blood Pressure 145/63 H Pulse Oximetry 92 Oxygen Delivery 01/03/23 04:00 01/03/23 04:00 Temperature 99 F Pulse Rate 74 71 Respiratory Rate 18 Blood Pressure 142/69 H Pulse Oximetry 92 Oxygen Delivery Intake/Output Intake/Output: Intake & Output 12/31/22 01/01/23 01/02/23 01/03/23 23:59 23:59 23:59 23:59 Intake Total 3760 3621 3640 1000 Output Total 1350 1400 2600 600 Balance 2410 2221 1040 400 Meds/Results Medications: Active Medications Generic Name Dose Route Start Last Admin Trade Name Freq PRN Reason Stop Dose Admin Acetaminophen
--- NOTE | 2023-01-03 07:57 | PCOTNOTE ---
Attempted OT evaluation this AM. Patient declining any/all activity at this time. RN reports she may do better in the afternoon/not a morning person. Will continue to attempt.
[2023-01-03 08:04] LABS: Glucose Point of Care 206 mg/dl (65-105)
[2023-01-03] MEDS: AMIODARONE HCL 200 MG TABLET PO ×2 (08:50→20:27)
[2023-01-03] MEDS: MIRABEGRON 50 MG ER TABLET PO (08:50)
[2023-01-03] MEDS: ASPIRIN 81 MG ENTERIC TABLET PO (08:50)
[2023-01-03] MEDS: ESCITALOPRAM OXALATE 10 MG TABLET 20 MG PO (08:50)
[2023-01-03] MEDS: INSULIN ASPART (*BKC) 100 UNITS/ML SUB-Q ×3 (08:50→20:32)
[2023-01-03] MEDS: FERROUS SULFATE 325 MG TABLET DR BY MOUTH (08:50)
[2023-01-03] MEDS: GABAPENTIN 300 MG CAPSULE PO (08:50)
[2023-01-03] MEDS: VENLAFAXINE HCL XR 75 MG CAP.ER.24H 225 MG PO (08:50)
[2023-01-03] MEDS: METOPROLOL TARTRATE 12.5 MG TABLET PO ×2 (08:51→20:27)
[2023-01-03] MEDS: PANTOPRAZOLE 40 MG TABLET PO (08:51)
[2023-01-03] MEDS: FLUTICASONE PROPIONATE 0.05% NA SPR 16 GM BTL (*BKC) 2 SPRAY NASAL (08:51)
[2023-01-03] MEDS: KCL 20 MEQ/SW 100 ML 100 ML 50 MEQ IVPB (11:17)
[2023-01-03 12:04] LABS: Glucose Point of Care 255 mg/dl (65-105)
--- NOTE | 2023-01-03 12:06 | PDONCCN ---
HPI - Date of Consult Date/Time: 01/03/23 17:28 <Wong Jackson - 01/03/23 17:29> 01/03/23 12:06 <Briana Rodriguez - 01/03/23 12:19> Requesting Physician: Zafar Botello MD <Wong Jackson - 01/03/23 17:29> Zafar Botello MD <Briana Rodriguez - 01/03/23 12:19> Primary Care Provider: Reza Mello MD <Wong Jackson - 01/03/23 17:29> Reza Mello MD <Briana Rodriguez - 01/03/23 12:19> - Consult Narrative Reason for consult: tongue cancer <Briana Rodriguez - 01/03/23 12:19> Narrative: Agree with above.Will order Ct scan neck. Will refer to ENT as outpatient. F/u in office Wong Jackson MD <Wong Jackson - 01/03/23 17:29> Shoshana Mon is a 72 year old female with a past medical history of Afib, DM, HTN, dementia, hypothyroidism, GERD, and squamous cell carcinoma of the tongue (s/p resection in 2001), admitted for weakness, fatigue and fever. Patient is a poor historian due to orientation level and HPI mainly found through chart review and nurse. Patient was having trouble eating and drinking due to mouth sores and there is concern for relapse due to new mouth lesions. She was also found to have an UTI upon admission and received abx. She endorses weakness, fatigue, body aches and chills. Denies blood in her stool or urine. Most recent colonoscopy on 12/30 showed gastritis, diverticulosis, Schatzki ring, and hiatal hernia. Her hbg was 6.7 and received 2 units of prbcs on 12/28/22. She is currently taking iron 325mg daily. She is on aspirin for afib. 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 Claudication CVA (cerebral vascular accident) Onset Date: 02/2019 With residual right-sided weakness Dementia Depression Diabetes Diabetic peripheral neuropathy Glaucoma both eyes Heel ulcer Left heel. 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 Claudication CVA (cerebral vascular accident) Onset Date: 02/2019 With residual right-sided weakness Dementia Depression Diabetes Diabetic peripheral neuropathy Glaucoma both eyes Heel ulcer Left heel. HTN (hypertension) Hx of radiation therapy Hx of tongue cancer Hypercalcemia Hyperlipidemia Hypertriglyceridemia Hypothyroidism (acquired) Memory loss Osteoporosis PAD (peripheral artery disease) Postmenopausal Postoperative atrial fibrillation Post coronary artery bypass 08/2020 Type 2 diabetes mellitus with diabetic polyneuropathy, without long-term current use of insulin UTI (urinary tract infection), bacterial Vertigo <Briana Rodriguez - 01/03/23 12:19> Surgical History:
--- NOTE | 2023-01-03 14:34 | PCOTNOTE ---
Pt is dependent for transfers at baseline. Pt was seen by PT and discharged to return to her [facility]. Dr. Botello called and notified. Will d/c OT.
[2023-01-03] MEDS: MAGNES & ALUM HYD/SIMETH/DIPHENHYD/LIDOCAINE 119 ML MOUTHWASH BY MOUTH (16:51)
[2023-01-03] MEDS: NYSTATIN 100,000 UNITS/ML SUSP 5 ML ORAL.SUSP PO ×2 (16:54→20:27)
[2023-01-03 17:02] LABS: Glucose Point of Care 156 mg/dl (65-105)
--- NOTE | 2023-01-03 19:34 | PM.IMPN ---
Progress Note: A&P Assessment and Plan (1) Hypokalemia: Code(s): E87.6 - Hypokalemia Status: Acute (2) Paroxysmal atrial fibrillation: Code(s): I48.0 - Paroxysmal atrial fibrillation Status: Acute (3) Tachycardia: Code(s): R00.0 - Tachycardia, unspecified Status: Acute (4) Atrial fibrillation: Qualifiers: Atrial fibrillation type: unspecified Qualified Code(s): I48.91 - Unspecified atrial fibrillation Code(s): I48.91 - Unspecified atrial fibrillation Status: Acute (5) Acute UTI: Code(s): N39.0 - Urinary tract infection, site not specified Status: Acute (6) Dementia: Code(s): F03.90 - Unspecified dementia, unspecified severity, without behavioral disturbance, psychotic disturbance, mood disturbance, and anxiety Status: Acute (7) Weakness of neck: Code(s): M53.82 - Other specified dorsopathies, cervical region Status: Acute (8) Weakness: Code(s): R53.1 - Weakness Status: Acute (9) Type 2 diabetes mellitus with hyperglycemia: Qualifiers: Diabetes mellitus terminal clerk insulin use: without snf use Qualified Code(s): E11.65 - Type 2 diabetes mellitus with hyperglycemia Code(s): E11.65 - Type 2 diabetes mellitus with hyperglycemia Status: Acute (10) HTN (hypertension): Code(s): I10 - Essential (primary) hypertension Status: Acute (11) Type 2 diabetes mellitus with diabetic polyneuropathy, without long-term current use of insulin: Code(s): E11.42 - Type 2 diabetes mellitus with diabetic polyneuropathy Status: Acute (12) Hyperlipidemia: Code(s): E78.5 - Hyperlipidemia, unspecified Status: Acute (13) Squamous cell cancer of tongue: Code(s): C02.9 - Malignant neoplasm of tongue, unspecified Status: Acute Plan 72F w/ PMH NIDDM w/ peripheral neuropathy, HTN, dementia, hypothyroidism, GERD, urge incontinence, LIVE, CAD s/p CABG, 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 Admitted on 12/28 1) weakness - multifactorial, she is a [facility] resident and likely should go back there but with rehab. - 12/31 - 01/02 reports feeling much better. she did receive 1 unit prbc during her stay. ctm - 01/03 - follow-up with PT OT.. 2) paroxysmal a fib - cardiology consulting. she is on metoprolol and amiodarone with good control. admiodarone 200mg po bid x1 week then 200mg daily. it was decided she would be on aspirin only, no AC in light of her high fall risk - cont tele monitoring. sinus rhythm now 3) UTI - received ABX. no s/s sepsis 4) dementia - stable, A&Ox2 as a baseline 5) acute anemia w/ history of LIVE - EGD and colonoscopy performed 12/30 - demonstrated severe gastritis, schatzkis ring, hiatal hernia, and diverticulosis. f/u schatzski ring biopsy. no evidence of acute bleed. cont protonix, counseled to avoid NSAIDS outside of the agreed upon aspirin. benefits and risks discussed again to which the pt and daughter agree to - received 2 units PRBC on 12/28. HB has since stabilized continue daily monitoring. - thrombocytopenia - could be 2/2 to blood loss or dilutional. ctm. reported she was going to receive lovenox on admission but no where in the MAR can I or nurse Jaime find she received heparin products. - 01/02 consult oncology for worsening thrombocytopenia and evaluation of tongue lesions - 01/03 ... hemoglobin is 8.4 today 6) SCC of tongue resected in 2001, recurrent lesions - has a few lesions on dorsum of tongue. pt and daughter request ENT consult, they were going to see one as outpatient as ordered by oncology. she has lost a lot of weight in the past 6 months. - 12/31 ENT consulted, reported they would not see patient because they don't have the right equipment to perform
[2023-01-03] MEDS: FERROUS SULFATE 325 MG TABLET DR PO (20:27)
[2023-01-03 20:57] LABS: Glucose Point of Care 258 mg/dl (65-105)
[2023-01-04] VITALS (14 sets, daily range): BP systolic 146–158; BP diastolic 59–72; PULSE 63–72; RESP 16–22; TEMP 37.2–37.8; O2SAT 91–96
[2023-01-04] MEDS: LEVOTHYROXINE SODIUM 50 MCG TABLET PO (04:53)
[2023-01-04] MEDS: MAGNES & ALUM HYD/SIMETH/DIPHENHYD/LIDOCAINE 119 ML MOUTHWASH BY MOUTH ×3 (04:53→21:15)
[2023-01-04 06:41] LABS: Hematocrit 29.8 % (37.0-47.0); Hemoglobin 8.8 g/dL (12.0-15.0); Mean Corpuscular HGB Conc 29.5 g/dl (32-36); Mean Corpuscular Hemoglobin 26.3 pg (26-34); Mean Corpuscular Volume 89.2 fl (80-100); Mean Platelet Volume 11.6 fl (7.4-10.4); Platelet Count Result 120 k/mm3 (150-375); Red Blood Count 3.34 M/mm3 (4.2-5.4); White Blood Count 5.4 K/mm3 (4.5-10.0)
[2023-01-04 06:57] LABS: Lactate Dehydrogenase 211 U/L (120-246)
[2023-01-04 07:00] LABS: Iron < 10 ug/dL (37-170)
[2023-01-04 07:39] LABS: Glucose Point of Care 175 mg/dl (65-105)
[2023-01-04 07:44] LABS: Percent Iron Saturation < 6 % (20-50)
[2023-01-04 08:04] LABS: Folic Acid 16.7 ng/mL (2.76->20)
[2023-01-04] MEDS: METOPROLOL TARTRATE 12.5 MG TABLET PO (09:05)
[2023-01-04] MEDS: ESCITALOPRAM OXALATE 10 MG TABLET 20 MG PO (09:06)
[2023-01-04] MEDS: NYSTATIN 100,000 UNITS/ML SUSP 5 ML ORAL.SUSP PO ×2 (09:06→21:27)
[2023-01-04] MEDS: AMIODARONE HCL 200 MG TABLET PO (09:13)
[2023-01-04 11:35] LABS: Glucose Point of Care 185 mg/dl (65-105)
--- NOTE | 2023-01-04 14:46 | PM.IMPN ---
Progress Note: A&P Assessment and Plan (1) Hypokalemia: Code(s): E87.6 - Hypokalemia Status: Acute (2) Paroxysmal atrial fibrillation: Code(s): I48.0 - Paroxysmal atrial fibrillation Status: Acute (3) Tachycardia: Code(s): R00.0 - Tachycardia, unspecified Status: Acute (4) Atrial fibrillation: Qualifiers: Atrial fibrillation type: unspecified Qualified Code(s): I48.91 - Unspecified atrial fibrillation Code(s): I48.91 - Unspecified atrial fibrillation Status: Acute (5) Acute UTI: Code(s): N39.0 - Urinary tract infection, site not specified Status: Acute (6) Dementia: Code(s): F03.90 - Unspecified dementia, unspecified severity, without behavioral disturbance, psychotic disturbance, mood disturbance, and anxiety Status: Acute (7) Weakness of neck: Code(s): M53.82 - Other specified dorsopathies, cervical region Status: Acute (8) Weakness: Code(s): R53.1 - Weakness Status: Acute (9) Type 2 diabetes mellitus with hyperglycemia: Qualifiers: Diabetes mellitus terminologist insulin use: without correction use Qualified Code(s): E11.65 - Type 2 diabetes mellitus with hyperglycemia Code(s): E11.65 - Type 2 diabetes mellitus with hyperglycemia Status: Acute (10) HTN (hypertension): Code(s): I10 - Essential (primary) hypertension Status: Acute (11) Type 2 diabetes mellitus with diabetic polyneuropathy, without long-term current use of insulin: Code(s): E11.42 - Type 2 diabetes mellitus with diabetic polyneuropathy Status: Acute (12) Hyperlipidemia: Code(s): E78.5 - Hyperlipidemia, unspecified Status: Acute (13) Squamous cell cancer of tongue: Code(s): C02.9 - Malignant neoplasm of tongue, unspecified Status: Acute Plan 72F w/ PMH NIDDM w/ peripheral neuropathy, HTN, dementia, hypothyroidism, GERD, urge incontinence, LIVE, CAD s/p CABG, 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 Admitted on 12/28 1) weakness - multifactorial, she is a correction halfway resident and likely should go back there but with rehab. - 12/31 - 01/02 reports feeling much better. she did receive 1 unit prbc during her stay. ctm - 01/03 - follow-up with PT OT.. 2) paroxysmal a fib - cardiology consulting. she is on metoprolol and amiodarone with good control. admiodarone 200mg po bid x1 week then 200mg daily. it was decided she would be on aspirin only, no AC in light of her high fall risk - cont tele monitoring. sinus rhythm now 3) UTI - received ABX. no s/s sepsis 4) dementia - stable, A&Ox2 as a baseline 5) acute anemia w/ history of LIVE - EGD and colonoscopy performed 12/30 - demonstrated severe gastritis, schatzkis ring, hiatal hernia, and diverticulosis. f/u schatzski ring biopsy. no evidence of acute bleed. cont protonix, counseled to avoid NSAIDS outside of the agreed upon aspirin. benefits and risks discussed again to which the pt and daughter agree to - received 2 units PRBC on 12/28. HB has since stabilized continue daily monitoring. - thrombocytopenia - could be 2/2 to blood loss or dilutional. - 01/02 consult oncology for worsening thrombocytopenia and evaluation of tongue lesions - 01/03 ... hemoglobin is 8.4 today 6) SCC of tongue resected in 2001, recurrent lesions - has a few lesions on dorsum of tongue. pt and daughter request ENT consult, they were going to see one as outpatient as ordered by oncology. she has lost a lot of weight in the past 6 months. - 12/31 ENT consulted, reported they would not see patient because they don't have the right equipment to perform biopsies - 01/02 oncology consult ordered - 01/03 oncology evaluated the patient, ordered am Labs for follow-up and CT scan of the nec
--- NOTE | 2023-01-04 14:48 | PCSTNOTE ---
Please refer to the Bedside Swallow Evaluation in the EMR. Please note, silent aspiration cannot be ruled out at bedside.
[2023-01-04 16:41] LABS: Glucose Point of Care 180 mg/dl (65-105)
[2023-01-04 19:56] LABS: Glucose Point of Care 151 mg/dl (65-105)
[2023-01-04] MEDS: ONDANSETRON INJ 4 MG/2 ML VIAL IV PUSH (21:09)
[2023-01-05] VITALS (12 sets, daily range): BP systolic 116–145; BP diastolic 62–72; PULSE 64–73; RESP 16–18; TEMP 36.4–37.1; O2SAT 91–97
[2023-01-05 07:42] LABS: Glucose Point of Care 163 mg/dl (65-105)
[2023-01-05] MEDS: PANTOPRAZOLE SODIUM IV 40 MG VIAL IV PUSH (09:28)
[2023-01-05 10:15] LABS: Iron 21 ug/dL (37-170)
[2023-01-05 10:25] LABS: Percent Iron Saturation 13 % (20-50)
[2023-01-05 11:42] LABS: Glucose Point of Care 174 mg/dl (65-105)
[2023-01-05 11:51] LABS: Ferritin > 2000.00 ng/mL (11.1-264)
[2023-01-05] MEDS: NYSTATIN 100,000 UNITS/ML SUSP 5 ML ORAL.SUSP PO ×2 (12:19→22:05)
[2023-01-05] MEDS: MAGNES & ALUM HYD/SIMETH/DIPHENHYD/LIDOCAINE 119 ML MOUTHWASH BY MOUTH ×2 (12:19→22:05)
--- NOTE | 2023-01-05 13:09 | PM.IMPN ---
Progress Note: A&P Assessment and Plan (1) Hypokalemia: Code(s): E87.6 - Hypokalemia Status: Acute (2) Paroxysmal atrial fibrillation: Code(s): I48.0 - Paroxysmal atrial fibrillation Status: Acute (3) Tachycardia: Code(s): R00.0 - Tachycardia, unspecified Status: Acute (4) Atrial fibrillation: Qualifiers: Atrial fibrillation type: unspecified Qualified Code(s): I48.91 - Unspecified atrial fibrillation Code(s): I48.91 - Unspecified atrial fibrillation Status: Acute (5) Acute UTI: Code(s): N39.0 - Urinary tract infection, site not specified Status: Acute (6) Dementia: Code(s): F03.90 - Unspecified dementia, unspecified severity, without behavioral disturbance, psychotic disturbance, mood disturbance, and anxiety Status: Acute (7) Weakness of neck: Code(s): M53.82 - Other specified dorsopathies, cervical region Status: Acute (8) Weakness: Code(s): R53.1 - Weakness Status: Acute (9) Type 2 diabetes mellitus with hyperglycemia: Qualifiers: Diabetes mellitus terminal supervisor insulin use: without chcf use Qualified Code(s): E11.65 - Type 2 diabetes mellitus with hyperglycemia Code(s): E11.65 - Type 2 diabetes mellitus with hyperglycemia Status: Acute (10) HTN (hypertension): Code(s): I10 - Essential (primary) hypertension Status: Acute (11) Type 2 diabetes mellitus with diabetic polyneuropathy, without long-term current use of insulin: Code(s): E11.42 - Type 2 diabetes mellitus with diabetic polyneuropathy Status: Acute (12) Hyperlipidemia: Code(s): E78.5 - Hyperlipidemia, unspecified Status: Acute (13) Squamous cell cancer of tongue: Code(s): C02.9 - Malignant neoplasm of tongue, unspecified Status: Acute Plan 72F w/ PMH NIDDM w/ peripheral neuropathy, HTN, dementia, hypothyroidism, GERD, urge incontinence, LIVE, CAD s/p CABG, 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 - 12/31 - 01/02 reports feeling much better. she did receive 1 unit prbc during her stay. ctm - 01/03 - follow-up with PT OT.. 2) paroxysmal a fib - cardiology consulting. she is on metoprolol and amiodarone with good control. admiodarone 200mg po bid x1 week then 200mg daily. it was decided she would be on aspirin only, no AC in light of her high fall risk - cont tele monitoring. sinus rhythm now 3) UTI - received ABX. no s/s sepsis 4) dementia - stable, A&Ox2 as a baseline 5) acute anemia w/ history of LIVE - EGD and colonoscopy performed 12/30 - demonstrated severe gastritis, schatzkis ring, hiatal hernia, and diverticulosis. f/u schatzski ring biopsy. no evidence of acute bleed. cont protonix, counseled to avoid NSAIDS outside of the agreed upon aspirin. benefits and risks discussed again to which the pt and daughter agree to - received 2 units PRBC on 12/28. HB has since stabilized continue daily monitoring. - thrombocytopenia - could be 2/2 to blood loss or dilutional. - 01/02 consult oncology for worsening thrombocytopenia and evaluation of tongue lesions - 01/03 ... hemoglobin is 8.4 today 6) SCC of tongue resected in 2001, recurrent lesions - has a few lesions on dorsum of tongue. pt and daughter request ENT consult, they were going to see one as outpatient as ordered by oncology. she has lost a lot of weight in the past 6 months. - 12/31 ENT consulted, reported they would not see patient because they don't have the right equipment to perform biopsies - 01/02 oncology consult ordered - 01/03 oncology evaluated the patient, ordered
[2023-01-05 16:33] LABS: Glucose Point of Care 153 mg/dl (65-105)
[2023-01-05 23:43] LABS: Glucose Point of Care 145 mg/dl (65-105)
[2023-01-06] VITALS (7 sets, daily range): BP systolic 97–137; BP diastolic 50–88; PULSE 57–123; RESP 14–18; TEMP 36.1–36.6; O2SAT 91–97
[2023-01-06] MEDS: MAGNES & ALUM HYD/SIMETH/DIPHENHYD/LIDOCAINE 119 ML MOUTHWASH BY MOUTH (04:26)
[2023-01-06 07:55] LABS: Glucose Point of Care 155 mg/dl (65-105)
[2023-01-06 11:42] LABS: Glucose Point of Care 163 mg/dl (65-105)
--- NOTE | 2023-01-06 12:33 | PCDIET ---
Nutrition note: Per notes, pt will be discharging on hospice when arrangements are made. No feeding tube. Please consult if other nutrition needs arise.
[2023-01-06] MEDS: MORPHINE SULFATE (*CRX) 2 MG/ML INJ IV PUSH (12:49)
[2023-01-06] MEDS: PANTOPRAZOLE SODIUM IV 40 MG VIAL IV PUSH (12:50)
--- NOTE | 2023-01-06 15:56 | PM.DS ---
DS: Admitting Diagnosis Discharge Date 01/06/23 Admitting Diagnosis Dementia Afib DS: Discharge Diagnosis Discharge Diagnosis (1) Squamous cell cancer of tongue: Code(s): C02.9 - Malignant neoplasm of tongue, unspecified Status: Acute (2) Atrial fibrillation: Qualifiers: Atrial fibrillation type: unspecified Qualified Code(s): I48.91 - Unspecified atrial fibrillation Code(s): I48.91 - Unspecified atrial fibrillation Status: Acute (3) Dementia: Code(s): F03.90 - Unspecified dementia, unspecified severity, without behavioral disturbance, psychotic disturbance, mood disturbance, and anxiety Status: Acute DS: Summary Hospital Course Hospital Course: 72 y/o F presents here with increased weakness, fatigue, and fever with PMH of diabetes, HTN, dementia, hypothyroidism, GERD, urge incontinence, LIVE, ME, 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 S HPI obtained through patient interview, ED provider report, and chart review due to patient's current altered mental status.? Patient presented here for generalized weakness.? Daughter reported that she has not been eating or drinking recently due to pain with swallowing and mouth sores.? Patient was treated for squamous cell carcinoma of the tongue in 2001 via resection, chemotherapy, and radiation.? There is current concern for recurrence of lesions.? Has appointment scheduled with ENT in the next 2 weeks, will schedule with Oncologist after this appointment. The patient is currently endorsing generalized weakness, decreased appetite, body aches, and chills.? She denies abdominal pain, dysuria, frequency, hematuria, or urinary hesitancy.? No chest pain, shortness a breath, subjective fevers, or palpitations.? Patient endorsed sore throat to ED provider. She is currently A/Ox1 with hx of dementia. Patient was treated for Aflutter with RVR with cardizem infusion and later transitions to Amiodarone. Treated for UTi, also managed for Anemia s/p 2 units of pRBC, EGD and Colonoscopy showed severe gastritis, schatzkis ring, hiatal hernia, and diverticulosis f/u schatzki ring biopsy. Patient has history Tongue which was treated in 2001 which has recurred, ENT was going to follow up outpatient. Speech evaluated recommended NPO. Patient continued to be lethargic and unable to have PO intake. Discussed with family about goals of care including nutrition family conferred and decided that they will transition to hospice care. Patient was discharge to hospice facility Plan 72F w/ PMH NIDDM w/ peripheral neuropathy, HTN, dementia, hypothyroidism, GERD, urge incontinence, LIVE, CAD s/p CABG, 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 Admitted on 12/28 Transition to hospice per family wishes 1) weakness - multifactorial, she is a [facility] resident and likely should go back there but with rehab. - 12/31 - 01/02 reports feeling much better. she did receive 1 unit prbc during her stay. ctm -? 01/03 -? follow-up with PT OT.. 2) paroxysmal a fib - cardiology consulting. she is on metoprolol and amiodarone with good control. admiodarone 200mg po bid x1 week then 200mg daily. it was decided she would be on aspirin only, no AC in light of her high fall risk - cont tele monitoring. sinus rhythm now 3) UTI - received ABX. no s/s sepsis 4) dementia - stable, A&Ox2 as a baseline 5) acute anemia w/ history of LIVE - EGD and colonoscopy performed 12/30 - demonstrated severe gastritis, schatzkis ring, hiatal hernia, and diverticulosis. f/u schatzski ring biopsy. no evidence of acute bleed. cont protonix, counseled to avoid NSAIDS outside of the agreed upon aspirin. benefits and risks discussed again to which the pt and daughter agree to
[2023-01-06 16:36] LABS: Glucose Point of Care 145 mg/dl (65-105)
[2023-01-06 16:51] LABS: SARS-CoV-2 RNA PCR Negative (Negative)
[2023-01-07 18:41] LABS: Soluble Transferrin Receptor 2.52 mg/L (0.76-1.76)
[2023-01-08 02:12] LABS: Methylmalonic Acid 316 nmol/L (87-318)
== END 2023-01-06 17:35 | disposition hospice, inpatient (51) | DRG 690 ==
LOC: ANHED 15:42 → ANHIMU 18:52 → ANH3MEDSUR 01-05 21:23 → ANHIMU 01-09 16:40
PROVIDERS: Family Medicine; General Practice; Internal Medicine Gastroenterology; Nurse Practitioner Family; Student in an Organized Health Care Education/Training Program; Admitting Provider Family Medicine; Emergency Provider Emergency Medicine; PCP Family Medicine; Visit Provider Internal Medicine
PROC: 0DJ08ZZ Inspection of Upper Intestinal Tract, Via Natural or Artificial Opening Endoscopic (ICD-10-PCS; CPT 43235; principal; 2022-12-30 13:30)
DX: N39.0 Urinary tract infection, site not specified (principal); I25.810 Atherosclerosis of coronary artery bypass graft(s) without angina pectoris; I69.351 Hemiplegia and hemiparesis following cerebral infarction affecting right dominant side; I48.0 Paroxysmal atrial fibrillation; I65.22 Occlusion and stenosis of left carotid artery; I10 Essential (primary) hypertension; D69.6 Thrombocytopenia, unspecified; D64.9 Anemia, unspecified; E87.6 Hypokalemia; E11.42 Type 2 diabetes mellitus with diabetic polyneuropathy; E11.51 Type 2 diabetes mellitus with diabetic peripheral angiopathy without gangrene; E78.5 Hyperlipidemia, unspecified; E78.1 Pure hyperglyceridemia; E03.9 Hypothyroidism, unspecified; K14.8 Other diseases of tongue; K44.9 Diaphragmatic hernia without obstruction or gangrene; K29.70 Gastritis, unspecified, without bleeding; K22.2 Esophageal obstruction; K57.30 Diverticulosis of large intestine without perforation or abscess without bleeding; M81.0 Age-related osteoporosis without current pathological fracture; H54.40 Blindness, one eye, unspecified eye; H40.9 Unspecified glaucoma; Z20.822 Contact with and (suspected) exposure to COVID-19; Z51.5 Encounter for palliative care; F03.90 Unspecified dementia, unspecified severity, without behavioral disturbance, psychotic disturbance, mood disturbance, and anxiety; F41.9 Anxiety disorder, unspecified; F32.A Depression, unspecified; Z11.52 Encounter for screening for COVID-19; Z85.810 Personal history of malignant neoplasm of tongue; Z79.02 Long term (current) use of antithrombotics/antiplatelets; Z92.3 Personal history of irradiation; Z95.1 Presence of aortocoronary bypass graft; Z87.891 Personal history of nicotine dependence; Z79.82 Long term (current) use of aspirin; Z79.84 Long term (current) use of oral hypoglycemic drugs; Z91.81 History of falling
CPT/HCPCS: 36415; 36430; 70490; 71046; 80048; 80053; 81001; 82607; 82728; 82746; 82948; 83036; 83540; 83550; 83605; 83615; 83735; 83921; 84145; 84238; 84443; 84484; 85025; 85027; 86850; 86900; 86901; 86923; 87040; 87081; 87086; 87255; 87635; 87637; 88305; 92526; 92611; 93005; 93306; 96365; 97161; 99285; A9270; C9113; J0696; J1650; J1815; J1956; J2270; J2371; J2405; J2704; J3250; J3480; J7030; J7040; J7042; J7050; J7120; P9016